=== PATIENT | male | born 1950 | race Caucasian/White ===

== ENCOUNTER 2016-06-22 11:20 | Inpatient (IN) | payer BC ==
[2016-06-22] MEDS ORDERED: ONDANSETRON 4 MG/2 ML VIAL IVP STA (11:57)
[2016-06-22] MEDS ORDERED: SODIUM CHLORIDE 0.9% 1,000 ML IV STA (11:57)
[2016-06-22] MEDS ORDERED: ASPIRIN 81 MG CHEW PO STA (11:57)
[2016-06-22] MEDS ORDERED: NITROGLYCERIN OINT 1 INCH/GM PACKET TOPICAL STA (11:57)
[2016-06-22] MEDS ORDERED: MORPHINE SULFATE 4 MG/ML SYRINGE IV STA (11:57)
--- NOTE | 2016-06-22 12:04 | ED ---
Chest Pain HPI - General Chief Complaint: Chest Pain Stated Complaint: abnormal ekg Time Seen by Provider: 06/22/16 11:36 Source: patient Mode of arrival: ambulatory Limitations: no limitations - History of Present Illness Initial Comments: A chest pain yesterday, it was 07/06, he went to see his family doctor, did the EKG yesterday and some blood work and they then did call them today he was at work and they told him to come to ER. He denies any chest pain today mild pressure he says this 1 over No nausea no vomiting no cold sweats he fell bit weak, he does have a multiple risk factors he has smoked greater than 35 years and he saying deep breaths makes the pain worse. He denies any diabetes any hypertension or any coronary artery disease at this point. No headaches no migraines no abdominal pain no frequency urgency dysuria no weakness of upper or lower extremities now further detailed discussion patient reveals that he is chest pain started about 2 weeks ago when he thinks he had his heart attack about 2 weeks ago and now his chest pain is all resolved - Related Data Home Medications Medication Instructions Recorded Confirmed Aspirin 325 mg PO ONCE 06/22/16 06/22/16 Cholecalciferol [Vitamin D3] 1,000 unit PO DAILY 06/22/16 06/22/16 Flaxseed Oil [[place]-3 Flaxseed Oil] 1,000 mg PO DAILY 06/22/16 06/22/16 Multivitamins, Thera [Multivitamin] 1 tab PO DAILY 06/22/16 06/22/16 Vitamin B Complex 1 cap PO DAILY 06/22/16 06/22/16 Allergies Allergy/AdvReac Type Severity Reaction Status Date / Time No Known Allergies Allergy Verified 06/22/16 12:42 Review of Systems ROS Statement: Those systems with pertinent positive or pertinent negative responses have been documented in the HPI. ROS Other: All systems not noted in ROS Statement are negative. EKG Findings - EKG Comments: EKG Findings:: G is normal sinus rhythm is 83 bpm AL interval is 160 QRS duration is 98 QT/QTc is 372/4 and 37, noticed a T-wave inversion in aVL, there is a hint of ST elevation in lead V2 and V3 by do have an old EKG which was done yesterday at family doctor's office prior to that I do not have any any EKGs were no other EKG changes noticed in this EKG Past Medical History Past Medical History: No Reported History History of Any Multi-Drug Resistant Organisms: None Reported Past Surgical History: No Surgical Hx Reported Past Psychological History: No Psychological Hx Reported Smoking Status: Current every day smoker Past Alcohol Use History: None Reported Past Drug Use History: None Reported General Exam - General Exam Comments Initial Comments: General: The patient is awake and alert, in no distress, and does not appear acutely ill. Skin: Skin is warm and dry and no rashes or lesions are noted. Eye: Pupils are equal, round and reactive to light, extra-ocular movements are intact; there is normal conjunctiva bilaterally. Ears, nose, mouth and throat: There are moist mucous membranes and no oral lesions. Neck: The neck is supple, there is no tenderness or JVD. Cardiovascular: There is a regular rate and rhythm. No murmur, rub or gallop is appreciated. Respiratory: To auscultation bilateral, good air exchange, exam is consistent with the moderate COPD Gastrointestinal: Soft, non-distended, non-tender abdomen without masses or organomegaly noted. There is no rebound or guarding present. Bowel sounds are unremarkable. Back: There is no tenderness to palpation in the midline. There is no obvious deformity. Musculoskeletal: Normal ROM, no tenderness, There is no pedal edema. There is no calf tenderness or swelling. No cords were appreciated. Neurological: CN II-XII intact, Cranial nerves III through XII are intact. There are no obvious motor or sensory deficits. Coordination appears grossly intact. Speech is normal. Psychiatric: Cooperative, appropriate mood & affect, normal judgment. Limitations: no limitations Course Vital Signs 06/22/16 06/22/16 06/22/16 11:26 11:35 11:48 Temperature 97.2 F L Pulse Rate 92 82 Pulse Rate [ 85 Bilateral Radial] Respiratory 20 15 Rate Blood Pressure 170/105 133/85 O2 Sat by Pulse 95 94 L Oximetry 06/22/16 06/22/16 12:30 13:15 Temperature Pulse Rate 68 60 Pulse Rate [ Bilateral Radial] Respiratory 18 14 Rate Blood Pressure 130/85 126/76 O2 Sat by Pulse 96 95 Oximetry Critical Care Time Total Critical Care Time: 45 Critical Care Time: Patient's troponin is elevated he had a chest pain off and on for 2 weeks discussed with the Dr. Carbajal noticed some mild ST elevation on and lead to V2 and lead V3, symptoms started 2 weeks ago chest pain is now resolved he had no chest pain when he was reassessed in the ER and there was even prior to giving him any medications discussed that with the Dr. Carbajal he will be heparinized and now be admitted under Dr. Rojas's group and Dr. lee on B consulted I did discuss with him myself, along with heparinization and now he be on nitro and morphine and statins. Disposition Clinical Impression: Myocardial infarction Disposition: ADMITTED IP TO THIS HOSP Condition: Good
[2016-06-22 12:17] LABS: Basophils # (A) 0.1 k/uL (0-0.2); Basophils % (A) 2 %; CH 33.9; CHCM 34.2; Eosinophils # (A) 0.1 k/uL (0-0.7); Eosinophils % (A) 2 %; HCT 46.5 % (39.0-53.0); HDW 2.34; HGB 15.6 gm/dL (13.0-17.5); Luc # (Auto) 0.22; Luc % (Auto) 4; Lymphocytes # (A) 1.6 k/uL (1.0-4.8); Lymphocytes % (A) 25 %; MCH 33.5 pg (25.0-35.0); MCHC 33.6 g/dL (31.0-37.0); MCV 99.6 fL (80.0-100.0); Mean Platelet Volume 7.6; Monocytes # (A) 0.5 k/uL (0-1.0); Monocytes % (A) 8 %; Neutrophils # (A) 3.7 k/uL (1.3-7.7); Neutrophils % (A) 60 %; RBC 4.67 m/uL (4.30-5.90); RDW 13.5 % (11.5-15.5); WBC 6.2 k/uL (3.8-10.6); WBC (Perox) 5.96
[2016-06-22 12:23] LABS: ALT 21 U/L (21-72); AST 27 U/L (17-59); Alkaline Phosphatase 52 U/L (38-126); Anion Gap 12 mmol/L; Blood Urea Nitrogen 10 mg/dL (9-20); Calcium 9.7 mg/dL (8.4-10.2); Carbon Dioxide 26 mmol/L (22-30); Chloride 104 mmol/L (98-107); Glucose 114 mg/dL (74-99); Non-African American GFR(MDRD) >60 (>60 ml/min/1.73 sqM); Potassium 4.2 mmol/L (3.5-5.1); Sodium 142 mmol/L (137-145); Total Bilirubin 0.6 mg/dL (0.2-1.3); Total Protein 7.8 g/dL (6.3-8.2)
[2016-06-22 12:30] LABS: Prothrombin Time 10.2 sec (9.0-12.0)
[2016-06-22 12:31] LABS: Partial Thromboplastin Time 25.4 sec (22.0-30.0)
--- NOTE | 2016-06-22 12:40 | XR ---
EXAMINATION TYPE: XR chest 2V DATE OF EXAM: 06/22/2016 12:37 PM COMPARISON: NONE HISTORY: Shortness of breath TECHNIQUE: Frontal and lateral views of the chest are obtained. FINDINGS: Scattered senescent parenchymal changes noted. Hyperinflation compatible with COPD. No evidence for infiltrate. No evidence for atelectasis. Heart size is stable. Mediastinal structures are stable and grossly unremarkable. No evidence for hilar prominence. Degenerative changes dorsal spine. IMPRESSION: 1. No evidence for acute pulmonary disease.
[2016-06-22 12:48] LABS: Creatine Kinase MB 1.9 ng/mL (0.0-2.4)
[2016-06-22 13:05] LABS: Troponin I 0.09 ng/mL (0.000-0.034)
[2016-06-22] MEDS ORDERED: NITROGLYCERIN SL TABS 0.4 MG TAB SUBLINGUAL PRN ×2 (13:31→14:51)
[2016-06-22] MEDS ORDERED: MORPHINE SULFATE 4 MG/ML SYRINGE IV PRN (13:31)
[2016-06-22] MEDS ORDERED: HEPARIN SODIUM,PORCINE 5,000 UNIT/ML 1 ML VIAL IV ONE (13:31)
[2016-06-22] MEDS ORDERED: HEPARIN SODIUM,PORCINE/D5W PMX 25,000 UNIT in DEXTROSE/WATER 1 500ML.BAG IV SCH (13:45)
[2016-06-22] MEDS ORDERED: SODIUM CHLORIDE 0.9% 1,000 ML in EMPTY BAG 1 BAG IV ONE (14:51)
[2016-06-22] MEDS ORDERED: ALPRAZolam 0.25 MG TAB PO PRN (14:51)
[2016-06-22] MEDS ORDERED: ASPIRIN 325 MG TAB PO STA (14:51)
[2016-06-22] MEDS ORDERED: ATORVASTATIN 80 MG TAB PO STA (14:51)
[2016-06-22] MEDS ORDERED: LIDOCAINE 2% INJ 20 MG/ML (20 ML MDV) ONE (15:04)
[2016-06-22] MEDS ORDERED: SODIUM CHLORIDE 0.9% (PF) 10 ML VIAL ONE (15:04)
[2016-06-22] MEDS ORDERED: VERAPAMIL 2.5 MG/ML 2 ML AMP ONE (15:04)
--- NOTE | 2016-06-22 15:43 | P.PN ---
Progress Note - Text This is an addendum to the dictated cardiology consultation. The patient has no prior history of ischemic heart disease but for the last 2 weeks his be complaining of chest discomfort across the chest sometimes radiating to the left arm associated with dyspnea. It can occur with mental and physical stress. He denies any dizziness or palpitations. He was seen by his PCP yesterday and had a normal EKG and was called today to come into the emergency room and subsequently admitted. His last episode of pain was yesterday. His EKG today shows sinus mechanism with mild ST segment elevation anteriorly and his EKG yesterday showed T-wave inversion in the anterior leads. His course factors are positive for a family history of premature CAD and chronic tobacco use, he is nondiabetic and his lipid profile is not available. His physical examination shows clear lungs, he has no peripheral edema and he is in sinus mechanism. Impression: Acute coronary syndrome with evidence of myocardial infarction. Chronic tobacco use. Plan: I have recommended to proceed with coronary angiography to assess his status and guide his treatment ,the rationale behind the procedure and the risk and the complications were discussed with the patient who is in full agreement to proceed. Thank you for this consult we will follow with you.
[2016-06-22] MEDS ORDERED: IV FLUID CONTINUATION 875 ML IV ONE (15:50)
--- NOTE | 2016-06-22 15:51 | P.CRDCN ---
History of Present Illness Consult date: 06/22/16 Reason for Consult (text): Non-STEMI Chief complaint: Chest tightness History of present illness: This is a pleasant 65-year-old gentleman who has no significant past medical history, no hypertension, no diabetes, and no hyperlipidemia. Presented to the emergency department after being called by his primary care physician's instructions for him to do so. Patient has been having complaints of chest tightness that radiates down his back and down bilateral arms this is been occurring on and off for the last 2-3 weeks. The first occurrence was while the patient was getting ready for bed and subsequent episodes have been while he was at work and was physically active. He does have a history of smoking approximately 1-1/2 packs a day for 35 years, recently cut back to approximately 10 cigarettes per day. There is a family history of coronary artery disease patient's brother has had multiple MIs in the past. Upon presentation chest x-ray showed no evidence for acute pulmonary disease. EKG done yesterday at his physician's office showed sinus rhythm with elevation of ST segment in V2 and V3 and T-wave inversion in aVL and V3 through V6; EKG done in the ER showed similar findings with T-wave inversions only in aVL. Laboratory values showed a normal BUN/creatinine and a troponin level of 0.090. Upon arrival to the selective care unit, patient is currently pain-free. Says his last episode of chest discomfort occurred yesterday while he was at work. He denies any complaints of shortness of breath, palpitations, diaphoresis, dizziness/lightheadedness or nausea/vomiting. Past Medical History Past Medical History: No Reported History Additional Past Medical History / Comment(s): Occasional lower back pain. History of Any Multi-Drug Resistant Organisms: None Reported Past Surgical History: Appendectomy Additional Past Surgical History / Comment(s): 2011 colonoscopy with polypectomy -benign Past Anesthesia/Blood Transfusion Reactions: No Reported Reaction Past Psychological History: Anxiety, Depression Additional Psychological History / Comment(s): Pt states he gets "alittle depressed and anxious at times but no big deal." Pt lives alone. He uses no assistive device. He drives. Smoking Status: Current every day smoker Past Alcohol Use History: Daily Additional Past Alcohol Use History / Comment(s): Pt states he started smoking in 1971 and is now alittle less than a ppd smoker. He drinks 2-3 rum and cokes a day. Past Drug Use History: None Reported - Past Family History Mother Family Medical History: No Reported History Additional Family Medical History / Comment(s): Mother lived to be 88yrs old. Father History Unknown: Yes Family Medical History: Cancer Additional Family Medical History / Comment(s): Father had sarcoma and at the age of 65yrs. Medications and Allergies Home Medications Medication Instructions Recorded Confirmed Type Aspirin 325 mg PO ONCE 06/22/16 06/22/16 History Cholecalciferol [Vitamin D3] 1,000 unit PO DAILY 06/22/16 06/22/16 History Flaxseed Oil [[place]-3 Flaxseed Oil] 1,000 mg PO DAILY 06/22/16 06/22/16 History Multivitamins, Thera [Multivitamin] 1 tab PO DAILY 06/22/16 06/22/16 History Vitamin B Complex 1 cap PO DAILY 06/22/16 06/22/16 History Allergies Allergy/AdvReac Type Severity Reaction Status Date / Time No Known Allergies Allergy Verified 06/22/16 12:42 Physical Exam Vitals: Vital Signs Temp Pulse Resp BP Pulse Ox 06/22/16 13:55 97.9 F 75 18 128/82 96 PHYSICAL EXAMINATION: HEENT: Head is atraumatic, normocephalic. Pupils equal, round. Neck is supple. There is no elevated jugular venous pressure. HEART EXAMINATION: Heart sounds regular, S1 and S2 normal. No murmur or gallop heard. CHEST EXAMINATION: Lungs are clear to auscultation and precussion. No chest wall tenderness is noted on palpation or with deep breathing. ABDOMEN: Soft, nontender. Bowel sounds are heard. No organomegaly noted. EXTREMITIES: 2+ peripheral pulses with no evidence of peripheral edema and no calf tenderness noted. NEUROLOGIC patient is awake, alert and oriented x3. . Results 06/22/16 11:46 06/22/16 11:46 Current Medications Generic Name Dose Route Start Last Admin Trade Name Freq PRN Reason Stop Dose Admin Alprazolam 0.25 mg 06/22/16 14:51 Xanax PO Q6HR PRN Mild Anxiety Alprazolam 0.5 mg 06/22/16 14:51 Xanax PO Q6HR PRN Moderate Anxiety Aspirin 325 mg 06/23/16 09:00 Aspirin PO DAILY RACHEL Atorvastatin Calcium 40 mg 06/22/16 21:00 Lipitor PO HS RACHEL Sodium Chloride 1,000 mls @ 100 mls/hr 06/22/16 11:57 06/22/16 12:25 Saline 0.9% IV 06/22/16 21:56 100 mls/hr .Q10H STA Administration Heparin Sodium/Dextrose 25,000 500 mls @ 19.05 mls/hr 06/22/16 13:45 14:03 unit/ IV Solution IV 12 units/kg/hr .Q24H RACHEL 19.05 mls/hr Protocol Administration 12 UNITS/KG/HR Morphine Sulfate 4 mg 06/22/16 13:31 Morphine Sulfate (Inj) IV Q5M PRN Chest Pain Nitroglycerin 0.4 mg 06/22/16 13:31 Nitrostat SUBLINGUAL Q5M PRN Chest Pain Assessment and Plan Plan: Assessment and plan #1 non-ST elevated myocardial infarction #2 nicotine dependence #3 family history of coronary artery disease We will keep the patient nothing by mouth and discontinue IV heparin. We'll plan for cardiac catheterization this afternoon with Dr. Carbajal. Further recommendations to follow. PATTERN TECHNICIAN note has been reviewed, I agree with a documented findings and plan of care. Patient was seen and examined.
[2016-06-22] MEDS ORDERED: diphenhydrAMINE 50 MG/ML 1 ML VIAL ONE (15:52)
[2016-06-22] MEDS ORDERED: fentaNYL (PF) 50 MCG/ML 2 ML AMP ONE (15:52)
[2016-06-22] MEDS ORDERED: fentaNYL (PF) 50 MCG/ML 2 ML AMP IV ONE (16:04)
[2016-06-22] MEDS ORDERED: diphenhydrAMINE 50 MG/ML 1 ML VIAL IVP ONE (16:04)
[2016-06-22] MEDS ORDERED: LIDOCAINE 2% INJ 20 MG/ML SQ ONE (16:09)
[2016-06-22] MEDS ORDERED: VERAPAMIL SYRINGE (5 MG/10 ML) INTRAARTER ONE (16:10)
[2016-06-22] MEDS ORDERED: HEPARIN SODIUM 1,000 UNIT/ML VIAL ONE (16:27)
[2016-06-22] MEDS ORDERED: HEPARIN SODIUM 1,000 UNIT/ML VIAL IV ONE (16:27)
[2016-06-22] MEDS ORDERED: IOHEXOL 350 MG/ML 100 ML BOTTLE INJ ONE (16:29)
[2016-06-22] MEDS ORDERED: RX INFO: IV CONTRAST WAS GIVEN 1 EACH MISC MISCELLANE PRN (16:41)
[2016-06-22] MEDS ORDERED: SODIUM CHLORIDE 0.9% 1,000 ML IV SCH (16:45)
[2016-06-22 17:01] LABS: Glucose,Whole Blood 101 mg/dL (75-99)
[2016-06-22] MEDS: SPIRONOLACTONE 25 MG TAB PO SCH (17:27)
[2016-06-22 17:34] LABS: Basophils # (A) 0.1 k/uL (0-0.2); Basophils % (A) 1 %; CH 33.6; CHCM 33.3; Eosinophils # (A) 0.1 k/uL (0-0.7); Eosinophils % (A) 1 %; HCT 47.5 % (39.0-53.0); HGB 15.5 gm/dL (13.0-17.5); Luc # (Auto) 0.22; Luc % (Auto) 3; Lymphocytes # (A) 1.6 k/uL (1.0-4.8); Lymphocytes % (A) 24 %; MCH 33.1 pg (25.0-35.0); MCHC 32.6 g/dL (31.0-37.0); MCV 101.5 fL (80.0-100.0); Macrocytosis Slight; Mean Platelet Volume 7.5; Monocytes # (A) 0.6 k/uL (0-1.0); Monocytes % (A) 10 %; Neutrophils # (A) 4.1 k/uL (1.3-7.7); Neutrophils % (A) 61 %; RBC 4.67 m/uL (4.30-5.90); RDW 13.5 % (11.5-15.5); WBC 6.7 k/uL (3.8-10.6)
[2016-06-22 17:43] LABS: INR 1.1 (<1.1); Partial Thromboplastin Time 56.1 sec (22.0-30.0); Prothrombin Time 10.7 sec (9.0-12.0)
[2016-06-22 18:17] LABS: Creatine Kinase MB 1.7 ng/mL (0.0-2.4)
[2016-06-22 18:31] LABS: Troponin I 0.131 ng/mL (0.000-0.034)
--- NOTE | 2016-06-22 18:58 | CC ---
DATE OF SERVICE: Mr. Mccormack is a 65-year-old male with history of chronic tobacco use, and a family history of coronary artery disease, who for the last 2 weeks he has been having episode of chest discomfort on and off radiating to the arm. Yesterday he saw his primary care physician and had an EKG that was done that was abnormal. He was called back today to come into the hospital. At the time of presentation to the emergency room, patient was pain-free. Because of his symptoms and risk factors and the EKG recommendations made regarding cardiac catheterization. The procedure as well as risks and complications were discussed with the patient who is in full understanding and agreement. PROCEDURE: Patient was brought to the cath in the past state after receiving fentanyl and Benadryl. He was draped and prepped in conventional fashion. Using Xylocaine anesthesia and Seldinger technique, a 6 Tajik sheath was introduced in the right radial artery. Selective right and left coronary angiography was performed using 5 Tajik 3-1/2 Bend, right and left Elsa catheters. Multiple super including hemiaxial views were obtained. Following that, a 5 [place] tight pigtail catheter was introduced into the left ventricle and 30 degrees RODAS view of the left ventricle was obtained. Following that, the catheter and sheath were removed. Hemostasis was obtained with deployment of TR band. There were no immediate complications. Patient is returned to his room in stable condition. FINDINGS: LEFT MAIN: This is a short-sized vessel, large in caliber bifurcating into the left circumflex, left anterior descending coronary artery, left main coronary artery is without any significant obstructive coronary artery disease. LEFT ANTERIOR DESCENDING ARTERY: This is a large-size vessel, giving rise to a large diagonal branch, in the mid segment after the diagonal branch takeoff, there is a 99% stenosis with slow flow distally with what appears to be intracoronary thrombus. The distal vessel appears to have no evidence of high-grade stenosis. LEFT CIRCUMFLEX: This is a nondominant vessel, large in caliber, giving rise to 2 obtuse marginal branches. The second one is large in caliber. After the take off of the first obtuse marginal branch, the left circumflex has a 99% stenosis and there is another long plaque in the mid in the obtuse marginal branch. Beyond that, there is no evidence of high-grade stenosis. RIGHT CORONARY ARTERY: This is a large dominant vessel bifurcating into PDA and posterolateral segment and branches. The vessel is tortuous in the proximal and mid segment, has diffuse intimal disease in the mid segment with area of stenosis up to 60 to 70%, distally prior to the bifurcation has an eccentric 80% stenosis. The PDA and PLV have no evidence of high-grade stenosis. LEFT VENTRICULOGRAM: Left ventriculogram was performed in 30 degrees RODAS view and revealed anteroapical severe hypokinesis. Ejection fraction is 35%. There was no significant mitral regurgitation. HEMODYNAMICS: There was no gradient across the aortic valve. The left ventricular end-diastolic pressure was 16 mmHg. CONCLUSION: 1. Severe triple vessel coronary artery disease with subtotally occluded mid left anterior descending coronary artery. 2. Severely impaired left ventricular systolic function. RECOMMENDATIONS: In view of the fact that the patient has no chest pain at this time and the appearance of his anatomy, I recommend proceeding with coronary artery bypass grafting. The rationale behind the procedure as well as risks and complications were discussed with the patient who is in full understanding and agreement.
--- NOTE | 2016-06-22 19:00 | LTR ---
June 22, 2016 RE: Gregor Mccormack Dear Dr. Mauro: I had the pleasure of performing cardiac catheterization on Mr. Mccormack at [facility] on the 22 of June and a full copy of procedure note will be forwarded to you. In brief, he was found to have severe triple vessel coronary artery disease and a severely impaired left ventricular systolic function. Based on those findings, I have recommended proceeding with coronary artery bypass grafting. I will keep you updated on his progress. Thank you again for allowing me to participate in his care. Please feel free to call for any questions. Sincerely, LEÓN GORDON MD
[2016-06-22] MEDS: HEPARIN SODIUM,PORCINE/D5W PMX 25,000 UNIT in DEXTROSE/WATER 1 500ML.BAG IV SCH (19:12)
[2016-06-22] MEDS: ALPRAZolam 0.5 MG TAB PO PRN (19:16)
[2016-06-22] MEDS: METOPROLOL TARTRATE 25 MG TAB PO SCH (20:06)
[2016-06-22] MEDS: LISINOPRIL 5 MG TAB PO SCH (20:06)
[2016-06-22] MEDS ORDERED: ATORVASTATIN 40 MG TAB PO SCH (21:00)
[2016-06-22] MEDS ORDERED: LORazepam 2 MG/ML SYRINGE IV PRN ×3 (21:31)
[2016-06-22] MEDS ORDERED: THIAMINE 100 MG/ML 2 ML VIAL IM STA (21:31)
[2016-06-22 23:31] LABS: Creatine Kinase MB 1.4 ng/mL (0.0-2.4)
[2016-06-22] MEDS: HEPARIN SODIUM,PORCINE 5,000 UNIT/ML 1 ML VIAL IV PRN (23:42)
[2016-06-22 23:43] LABS: Troponin I 0.155 ng/mL (0.000-0.034)
[2016-06-22] MEDS: NITROGLYCERIN OINT 1 INCH/GM PACKET TOPICAL SCH (23:49)
[2016-06-23 05:44] LABS: Basophils # (A) 0.1 k/uL (0-0.2); Basophils % (A) 1 %; CH 33.6; CHCM 33.9; Eosinophils # (A) 0.1 k/uL (0-0.7); Eosinophils % (A) 2 %; HCT 44.4 % (39.0-53.0); HDW 2.32; HGB 14.9 gm/dL (13.0-17.5); Luc # (Auto) 0.27; Luc % (Auto) 4; Lymphocytes # (A) 1.6 k/uL (1.0-4.8); Lymphocytes % (A) 24 %; MCH 33.4 pg (25.0-35.0); MCHC 33.6 g/dL (31.0-37.0); MCV 99.6 fL (80.0-100.0); Mean Platelet Volume 7.3; Monocytes # (A) 0.6 k/uL (0-1.0); Monocytes % (A) 8 %; Neutrophils # (A) 4.2 k/uL (1.3-7.7); Neutrophils % (A) 61 %; RBC 4.45 m/uL (4.30-5.90); RDW 13.5 % (11.5-15.5); WBC 6.9 k/uL (3.8-10.6)
[2016-06-23 06:31] LABS: Anion Gap 7 mmol/L; Blood Urea Nitrogen 11 mg/dL (9-20); Carbon Dioxide 24 mmol/L (22-30); Chloride 108 mmol/L (98-107); Cholesterol 162 mg/dL (<200); Glucose 108 mg/dL (74-99); HDL Cholesterol 58 mg/dL (40-60); Non-African American GFR(MDRD) >60 (>60 ml/min/1.73 sqM); Potassium 4.2 mmol/L (3.5-5.1); Sodium 139 mmol/L (137-145); Triglycerides 68 mg/dL (<150)
[2016-06-23] MEDS: LISINOPRIL 5 MG TAB PO SCH ×2 (08:41→20:20)
[2016-06-23] MEDS: METOPROLOL TARTRATE 25 MG TAB PO SCH ×2 (08:41→20:20)
[2016-06-23] MEDS: SPIRONOLACTONE 25 MG TAB PO SCH (08:41)
[2016-06-23] MEDS: ATORVASTATIN 80 MG TAB PO SCH (08:41)
[2016-06-23] MEDS: NITROGLYCERIN OINT 1 INCH/GM PACKET TOPICAL SCH ×2 (08:41→16:06)
[2016-06-23] MEDS: NICOTINE 21MG/24HR PATCH TRANSDERM SCH (08:41)
--- NOTE | 2016-06-23 08:51 | PN ---
Mr. Mccormack is a 65-year-old male who presented with evidence of abnormal EKG, has been having chest pain for 2 weeks but did not have any pain on the day of presentation, underwent cardiac catheterization, was found to have severe triple vessel coronary artery disease. He is doing well this morning. He has no chest pain. His breathing has been stable. He denies any dizziness or palpitation. He denies any nausea. He continues to be on aspirin once a day, Lipitor 80 mg daily, IV heparin, lisinopril 5 mg twice a metoprolol titrate 25 mg twice a day, spironolactone 25 mg daily. PHYSICAL EXAMINATION: Blood pressure 128/70 with the heart rate in the 60s. LUNGS: Clear. HEART: Regular rate and rhythm. S1 and S2, no S3, no rub. ABDOMEN: Soft, nontender. EXTREMITIES: No edema. Right radial pulse intact. EKG revealed biphasic T waves in the anterolateral leads with poor R wave progression. Lab data revealed a troponin peak of 0.155. BUN and creatinine 11 and 0.7. Potassium 4.2. Hemoglobin 14.9. Cholesterol 162 with an LDL of 90. IMPRESSION: 1. Severe triple vessel coronary artery disease. 2. Status post recent anterior wall myocardial infarction. 3. Prior history of smoking. RECOMMENDATION: Patient will be evaluated by the cardiovascular surgical team for coronary artery bypass grafting. In view of his anatomy and his presentation, I believe that coronary artery bypass grafting will be the best option. Will continue present therapy. An echocardiogram with Doppler will be obtained. I will obtain a consultation from Dr. Martinez regarding his lung status preoperatively. In the meantime he will continue on IV heparin.
[2016-06-23] MEDS: ASPIRIN 325 MG TAB PO SCH (09:44)
--- NOTE | 2016-06-23 11:19 | US ---
EXAMINATION TYPE: US carotid duplex BILAT DATE OF EXAM: 06/23/2016 11:01 AM COMPARISON: No previous CLINICAL HISTORY: 65-year-old male status post CABG. Myocardial infarction, exam done portable in ICU . TECHNIQUE: Duplex carotid ultrasound. Indirect Doppler criteria utilized. FINDINGS: There is mild atherosclerotic change at both bifurcations. EXAM MEASUREMENTS: RIGHT: Peak Systolic Velocity (PSV) cm/sec ----- Right CCA: 76.5 ----- Right ICA: 59.2 ----- Right ECA: 94.2 ICA/CCA ratio: 0.8 RIGHT: End Diastole cm/sec ----- Right CCA: 20.4 ----- Right ICA: 15.3 ----- Right ECA: 13.7 LEFT: Peak Systolic Velocity (PSV) cm/sec ----- Left CCA: 82.9 ----- Left ICA: 70.5 ----- Left ECA: 62.1 ICA/CCA ratio: 0.8 LEFT: End Diastole cm/sec ----- Left CCA: 18.7 ----- Left ICA: 17.8 ----- Left ECA: 9.5 VERTEBRALS (direction of flow): Right Vertebral: Antegrade Left Vertebral: Antegrade IMPRESSION: No hemodynamically significant stenosis appreciated in either internal carotid artery. Criteria for Assigning % of Stenosis / Diameter reduction (Estimation based on the indirect measurements of the internal carotid artery velocities (ICA PSV). 1. Normal (no stenosis)=ICA PSV < 125 cm/s: ratio < 2.0: ICA EDV<40 cm/s. 2. Less than 50% stenosis=ICA PSV < 125 cm/s: ratio < 2.0: ICA EDV<40 cm/s. 3. 50 to 69% stenosis=ICA PSV of 125 to 230 cm/s: ration 2.0 ? 4.0: ICA EDV 40-100 cm/s. 4. Greater than 70% stenosis to near occlusion= ICA PSV > 230 cm/s: ratio > 4.0: ICA EDV > 100 cm/s. 5. Near occlusion= ICA PSV velocities may be low or undetectable: variable ratio and ICA EDV. 6. Total occlusion=unable to detect flow.
[2016-06-23] MEDS: THIAMINE 100 MG TAB PO SCH ×2 (11:44→17:51)
[2016-06-23] MEDS: methylPREDNISolone SOD SUCCI 40 MG/ML 1 ML VIAL IV SCH ×2 (11:44→17:51)
[2016-06-23] MEDS: IPRATROPIUM-ALBUTEROL 3 ML NEB INHALATION SCH ×3 (12:07→19:36)
--- NOTE | 2016-06-23 13:14 | CONS ---
DATE OF CONSULTATION: 06/23/2016 HISTORY OF PRESENT ILLNESS/CHIEF COMPLAINT: The patient is a pleasant 65-year-old male with no major past medical history who was admitted with a 3-week history of chest discomfort and tightness. Patient had abnormal EKG upon visiting his primary care doctor, was sent to the emergency room. Based on symptoms, patient was taken to the label remover and underwent a cardiac catheterization which revealed critical 3-vessel coronary arterial disease. Troponins were very, very mildly positive. Ejection fraction was only mildly depressed. Cardiac surgery consultation is obtained for evaluation for a coronary bypass surgery. PAST MEDICAL HISTORY: No major noted. PAST SURGICAL HISTORY: Appendectomy. Family history is negative. Medications include aspirin as well as numerous [id number] vitamins. ALLERGIES: No known drug allergies. REVIEW OF SYSTEMS: A 13-system review of systems was performed and was negative with the exception of those listed in the history of present illness. PHYSICAL EXAM: Pupils equal, round, reactive to light and accommodation. Extraocular muscles intact. NECK: Soft, supple. Trachea midline. No JVD. LUNGS: Clear bilaterally. Heart: Regular in rhythm. S1, S2. No murmurs. ABDOMEN: Soft, nontender. Positive bowel sounds. No organomegaly. EXTREMITIES: 2+ peripheral pulses with no edema. NEUROLOGIC: Patient is intact. Cardiac catheterization findings reveal a subtotaled mid left anterior descending artery with ROBERT 2 flow down to the distal via collaterals but a 95% mid circumflex artery stenosis, right coronary artery is 80% stenosis in the mid. Ejection fraction is mildly depressed. IMPRESSION: 1. Non-ST elevation myocardial infarction. 2. Severe 3-vessel coronary arterial disease. PLAN: IV heparin, IV nitroglycerin as well as close observation in the ICU. Patient is currently stable and pain free. We will plan for surgery in the next 2 to 3, days. We will check carotid Dopplers, pulmonary function tests, as well as a 2-D echo. Discussed in detail with the patient including risks, potential complications. He understands and wished to proceed.
[2016-06-23] MEDS: HEPARIN SODIUM,PORCINE/D5W PMX 25,000 UNIT in DEXTROSE/WATER 1 500ML.BAG IV SCH (14:30)
--- NOTE | 2016-06-23 14:40 | ECHOF ---
Referral Reason:PA MEASUREMENTS -------- HEIGHT: 180.3 cm WEIGHT: 81.7 kg BP: 135/81 RVIDd: 2.9 cm (< 3.3) IVSd: 1.3 cm (0.6 - 1.1) LVIDd: 4.7 cm (3.9 - 5.3) LVPWd: 1.2 cm (0.6 - 1.1) IVSs: 1.7 cm LVIDs: 3.3 cm LVPWs: 1.6 cm LA Diam: 3.6 cm (2.7 - 3.8) LAESV Index (A-L): 24.71 ml/m Ao Diam: 3.8 cm (2.0 - 3.7) AV Cusp: 2.4 cm (1.5 - 2.6) MV EXCURSION: 18.221 mm (> 18.000) MV EF SLOPE: 97 mm/s (70 - 150) EPSS: 0.8 cm MV E Bridger: 0.60 m/s MV DecT: 257 ms MV A Bridger: 0.53 m/s MV E/A Ratio: 1.14 RAP: 5.00 mmHg RVSP: 23.88 mmHg FINDINGS -------- Sinus rhythm. This was a technically adequate study. The left ventricular size is normal. There is mild concentric left ventricular hypertrophy. Overall left ventricular systolic function is moderately impaired with, an EF between 35 - 40 %. Mid anterior LV wall motion is hypokinetic. Apical anterior LV wall motion is akinetic. Apical lateral LV wall motion is akinetic. Apical inferior LV wall motion is hypokinetic. Apical septum LV wall motion is akinetic. The right ventricle is normal in size. Normal LA size by volume 22+/-6 ml/m2. The right atrium is normal in size. 1.5mg of Definity was utilized for enhancement of images The aortic valve is trileaflet and appears structurally normal. The mitral valve is normal. Mild mitral regurgitation is present. Mild tricuspid regurgitation present. Right ventricular systolic pressure is normal at < 35 mmHg. The pulmonic valve was not well visualized. There is no pulmonic regurgitation present. The aortic root is dilated measuring 3.8cm. Normal inferior vena cava with normal inspiratory collapse consistent with estimated right atrial pressure of 5 mmHg. There is no pericardial effusion. CONCLUSIONS -------- 1. Sinus rhythm. 2. The right ventricle is normal in size. 3. Normal LA size by volume 22+/-6 ml/m2. 4. The right atrium is normal in size. 5. 1.5mg of Definity was utilized for enhancement of images 6. The aortic valve is trileaflet and appears structurally normal. 7. Mild mitral regurgitation is present. 8. Mild tricuspid regurgitation present. 9. Right ventricular systolic pressure is normal at < 35 mmHg. 10. There is no pulmonic regurgitation present. 11. The aortic root is dilated measuring 3.8cm. 12. This was a technically adequate study. 13. Normal inferior vena cava with normal inspiratory collapse consistent with estimated right atrial pressure of 5 mmHg. 14. There is no pericardial effusion. 15. The left ventricular size is normal. 16. There is mild concentric left ventricular hypertrophy. 17. Overall left ventricular systolic function is moderately impaired with, an EF between 35 - 40 %. 18. Mid anterior LV wall motion is hypokinetic. 19. Apical anterior LV wall motion is akinetic. 20. Apical lateral LV wall motion is akinetic. 21. Apical septum LV wall motion is akinetic. PHLEBOTOMY TECH: Capri Gao RDCS
--- NOTE | 2016-06-23 17:25 | HP ---
DATE OF ADMISSION: 06/22/2016 The patient is a 65-year-old gentleman who came in with complaints of on and off chest pain, ( ) shortness of breath and the patient does have some nonspecific ST-T wave changes, the patient has mildly elevated troponin. The patient has ST segment elevation, which is actually considered depression in V2 V3 and T-wave inversion in aVL and V3 to V6 and the patient has minimally elevated troponin 0.090. Today 0.6 and the patient ( ) including extensive smoking history. Patient underwent cardiac catheterization yesterday and the patient was found to have previous ( ) because of which cardiovascular surgery was consulted and the patient continues to be on heparin. Today morning ( ) because the patient was ( ) lung function, the patient was started on Prednisone, patient has ejection fraction of around 35 to 40%, which is probably acute systolic dysfunction for myocardial infarction. Patient since prednisone and breathing treatments, the patient's pain completely resolved when I evaluated the patient. The patient chest pain free when I evaluated the patient. The patient has a nitro patch in place. REVIEW OF SYSTEMS: CONSTITUTIONAL: No fever, no malaise, no fatigue. HEENT: No recent visual problems or hearing problems. Denied any sore throat. CARDIOVASCULAR: No chest pain, orthopnea, PND, no palpitations, no syncope. PULMONARY: No shortness of breath, no cough, no hemoptysis. GASTROINTESTINAL: No diarrhea, no nausea, no vomiting, no abdominal pain. Normoactive bowel sounds. NEUROLOGICAL: No headaches, no weakness, no numbness. HEMATOLOGICAL: Denies any bleeding or petechiae. GENITOURINARY: Denies any burning micturition, frequency, or urgency. MUSCULOSKELETAL/RHEUMATOLOGICAL: Denies any joint pain, swelling, or any muscle pain. ENDOCRINE: Denies any polyuria or polydipsia. The rest of the 14 point review of systems is negative. PAST MEDICAL HISTORY: Appendectomy. The patient smokes 1 and 1/2 pack per day. Denied any alcohol abuse or any drug history. FAMILY HISTORY: Mother had no reported history, father had sarcoma at age 65. Home medications: 1. Aspirin. 2. Plavix. 3. Multivitamins. 4. Vitamin B complex. ALLERGIES: No known drug allergies. PHYSICAL EXAMINATION: VITAL SIGNS: Temperature 97.1, pulse 75, respiratory rate 18, blood pressure 138/82, saturating at 96% on room. GENERAL: The patient is alert and oriented x3, not in any acute distress. Well developed, well nourished. HEENT: Pupils are round and equally reacting to light. EOMI. No scleral icterus. No conjunctival pallor. Normocephalic, atraumatic. No pharyngeal erythema. No thyromegaly. CARDIOVASCULAR: S1 and S2 present. No murmurs, rubs, or gallops. PULMONARY: Chest is clear to auscultation, no wheezing or crackles. ABDOMEN: Soft, nontender, nondistended, normoactive bowel sounds. No palpable organomegaly. MUSCULOSKELETAL: No joint swelling or deformity. EXTREMITIES: No cyanosis, clubbing, or pedal edema. NEUROLOGICAL: Gross neurological examination did not reveal any focal deficits. SKIN: No rashes. LABORATORY DATA: CBC, CMP, no significant abnormality was appreciated. EKG changes as mentioned earlier. Troponins as mentioned earlier. ASSESSMENT AND PLAN: 1. ( ) Non-ST elevation myocardial infarction, the patient ( ) negative ( ). The patient still awaiting recommendations from cardiothoracic surgery regarding coronary artery bypass grafting. 2. Possibility of chronic obstructive pulmonary disease ( ) minimal exacerbation. The patient was started on systemic steroids and inhalation treatments by pulmonology. 3. Severe coronary artery disease. 4. Acute systolic dysfunction without any acute exacerbation. Patient is on dual antiplatelet therapy, beta linda as well as BROOKLYNN inhibitor and IV heparin at this point of time. Patient is awaiting recommendations from cardiothoracic surgery.
[2016-06-23 17:43] LABS: Glucose,Whole Blood 147 mg/dL (75-99)
--- NOTE | 2016-06-23 18:37 | P.CNPUL ---
History of Present Illness Consult date: 06/23/16 Chief complaint: Coronary artery disease, preoperative evaluation History of present illness: 65-year-old male patient, a chronic smoker with a positive family history of coronary artery disease, presented with episodes of chest pain. Further investigation revealed an abnormal EKG and following that the patient came into the hospital where he had a cardiac catheterization that showed triple-vessel disease with subtotal occluded mid LAD and severely impaired LV function with an ejection fraction of 35%. The patient is being considered for coronary artery bypass surgery. Echocardiogram was also done that showed an ejection fraction of 35-40%. There was evidence of segmental wall motion abnormalities. Aortic root was dilated at 3.8 cm in size. Clinically the patient reports to be in a good state of health. He drinks alcohol every night around few glasses of liquor. No history of any delirium tremens. Denies being an alcoholic. The patient woke cigarettes since clerk rating. He has a chronic congested cough. No silica sputum production. No pleurisy. No hemoptysis. He reports that he was in a good state of health and he was able to walk long distances incline couple of flights of stairs prior to this event without any major difficulties. No history of any DVT or pulmonary embolism. No swelling in lower extremities. Chest x-ray from this admission showed evidence of COPD. A bedside spirometry has not been done yet. No history of any childhood asthma. No hospitalization for any respiratory difficulties. Based on room air pulse ox is ranging between 91-93%. Review of Systems Review of system was done and the positive findings are almost above in history of present illness Past Medical History Past Medical History: No Reported History Additional Past Medical History / Comment(s): Occasional lower back pain. History of Any Multi-Drug Resistant Organisms: None Reported Past Surgical History: Appendectomy Additional Past Surgical History / Comment(s): 2011 colonoscopy with polypectomy -benign Past Anesthesia/Blood Transfusion Reactions: No Reported Reaction Past Psychological History: Anxiety, Depression Additional Psychological History / Comment(s): Pt states he gets "alittle depressed and anxious at times but no big deal." Pt lives alone. He uses no assistive device. He drives. Smoking Status: Current every day smoker Past Alcohol Use History: Daily Additional Past Alcohol Use History / Comment(s): Pt states he started smoking in 1971 and is now alittle less than a ppd smoker. He drinks 2-3 rum and cokes a day. Past Drug Use History: None Reported - Past Family History Mother Family Medical History: No Reported History Additional Family Medical History / Comment(s): Mother lived to be 88yrs old. Father History Unknown: Yes Family Medical History: Cancer Additional Family Medical History / Comment(s): Father had sarcoma and at the age of 65yrs. Medications and Allergies Home Medications Medication Instructions Recorded Confirmed Type Aspirin 325 mg PO ONCE 06/22/16 06/22/16 History Cholecalciferol [Vitamin D3] 1,000 unit PO DAILY 06/22/16 06/22/16 History Flaxseed Oil [[place]-3 Flaxseed Oil] 1,000 mg PO DAILY 06/22/16 06/22/16 History Multivitamins, Thera [Multivitamin] 1 tab PO DAILY 06/22/16 06/22/16 History Vitamin B Complex 1 cap PO DAILY 06/22/16 06/22/16 History Allergies Allergy/AdvReac Type Severity Reaction Status Date / Time No Known Allergies Allergy Verified 06/22/16 12:42 Physical Exam Vitals: Vital Signs Temp Pulse Pulse Resp BP BP Pulse Ox 06/23/16 17:00 74 19 114/61 91 L 06/23/16 16:00 97.9 F 77 21 126/74 93 L 06/23/16 15:55 70 06/23/16 15:44 68 06/23/16 15:00 62 16 113/63 91 L 06/23/16 14:00 76 23 122/63 92 L 06/23/16 13:00 77 18 117/66 92 L 06/23/16 12:24 54 L 06/23/16 12:07 54 L 14 06/23/16 12:00 98 F 60 16 118/67 94 L 06/23/16 11:00 53 L 13 114/72 93 L 06/23/16 10:00 65 13 125/71 95 06/23/16 09:00 77 31 H 135/81 92 L 06/23/16 08:00 97.6 F 70 29 H 128/73 94 L 06/23/16 07:10 61 13 128/73 92 L 06/23/16 07:00 66 16 128/73 92 L 06/23/16 06:50 69 12 119/67 93 L 06/23/16 06:40 70 18 119/67 93 L 06/23/16 06:30 62 16 119/67 92 L 06/23/16 06:20 62 15 119/67 93 L 06/23/16 06:10 55 L 7 L 119/67 95 06/23/16 06:00 54 L 7 L 119/67 93 L 06/23/16 05:50 53 L 9 L 115/66 94 L 06/23/16 05:40 59 L 15 115/66 93 L 06/23/16 05:30 69 15 115/66 93 L 06/23/16 05:20 63 16 115/66 91 L 06/23/16 05:10 62 16 115/66 90 L 06/23/16 05:00 68 11 L 115/66 92 L 06/23/16 04:50 67 22 95/60 92 L 06/23/16 04:40 54 L 7 L 95/60 93 L 06/23/16 04:30 60 15 95/60 93 L 06/23/16 04:20 58 L 8 L 95/60 93 L 06/23/16 04:10 55 L 14 95/60 91 L 06/23/16 04:00 98.3 F 56 L 60 11 L 95/60 94 L 06/23/16 03:50 63 11 L 92/48 92 L 06/23/16 03:40 90 23 92/48 92 L 06/23/16 03:30 71 15 92/48 92 L 06/23/16 03:20 63 15 92/48 91 L 06/23/16 03:10 59 L 13 92/48 93 L 06/23/16 03:00 57 L 16 92/48 91 L 06/23/16 02:50 62 13 91 L 06/23/16 02:40 61 14 91 L 06/23/16 02:30 59 L 7 L 97/56 93 L 06/23/16 02:20 73 31 H 97/56 90 L 06/23/16 02:10 58 L 16 97/56 91 L 06/23/16 02:00 65 15 97/56 91 L 06/23/16 01:50 63 13 97/56 92 L 06/23/16 01:40 65 14 97/56 91 L 06/23/16 01:30 60 13 97/56 91 L 06/23/16 01:20 62 15 97/56 91 L 06/23/16 01:10 62 15 97/56 91 L 06/23/16 01:00 59 L 14 97/56 91 L 06/23/16 00:50 59 L 14 97/56 90 L 06/23/16 00:40 57 L 14 97/56 89 L 06/23/16 00:30 59 L 13 116/72 89 L 06/23/16 00:20 61 17 116/72 90 L 06/23/16 00:10 56 L 11 L 116/72 94 L 06/23/16 00:00 98.1 F 64 60 17 116/72 91 L 06/22/16 23:50 62 16 116/72 90 L 06/22/16 23:40 58 L 16 116/72 06/22/16 23:30 54 L 14 114/69 06/22/16 23:23 58 L 11 L 114/69 06/22/16 23:20 58 L 20 114/69 95 06/22/16 23:10 55 L 13 114/69 06/22/16 23:00 57 L 15 114/69 93 L 06/22/16 22:50 56 L 12 114/69 06/22/16 22:40 56 L 15 114/69 92 L 06/22/16 22:30 54 L 13 114/73 91 L 06/22/16 22:20 53 L 13 114/73 93 L 06/22/16 22:10 56 L 15 114/73 92 L 06/22/16 22:00 57 L 14 114/73 91 L 06/22/16 21:50 65 16 114/73 93 L 06/22/16 21:40 61 15 114/73 93 L 06/22/16 21:30 63 12 111/70 92 L 06/22/16 21:20 65 12 111/70 93 L 06/22/16 21:10 61 14 111/70 92 L 06/22/16 21:00 62 11 L 111/70 92 L 06/22/16 20:50 59 L 15 111/70 91 L 06/22/16 20:40 61 12 111/70 91 L 06/22/16 20:30 59 L 11 L 134/74 93 L 06/22/16 20:26 97.9 F 60 16 111/70 92 L 06/22/16 20:20 60 12 134/74 93 L 06/22/16 20:10 60 15 134/74 90 L 06/22/16 20:00 97.9 F 62 60 15 134/74 91 L 06/22/16 19:50 62 13 134/74 91 L 06/22/16 19:40 63 14 134/74 92 L 06/22/16 19:30 67 18 132/80 94 L 06/22/16 19:26 97.9 F 61 17 134/74 92 L 06/22/16 19:20 67 15 127/81 93 L 06/22/16 19:10 70 13 127/81 93 L 06/22/16 19:00 61 11 L 127/81 93 L 06/22/16 18:50 62 17 126/91 92 L 06/22/16 18:40 69 17 126/91 93 L Intake and Output 06/23/16 06/23/16 06/23/16 06:59 14:59 22:59 Intake Total 684.773 953.579 225 Output Total 450 575 425 Balance 234.773 378.579 -200 Intake: IV 600 600 225 Sodium Chloride 0.9% 1, 600 600 225 000 ml @ 75 mls/hr IV . [id number] RACHEL Rx#:[id number] Intake, IV Titration 84.773 353.579 Amount Heparin Sodium,Porcine/ 84.773 353.579 D5w Pmx 25,000 unit In Dextrose/Water 1 500ml. bag @ 12 UNITS/KG/HR 19. 05 mls/hr IV .Q24H RACHEL Rx #:[id number] Output: Urine 450 575 425 Other: Voiding Method Urinal Urinal # Voids 1 1 Weight 81.7 kg Head exam was generally normal. There was no scleral icterus or corneal arcus. Mucous membranes were moist.Neck was supple and without jugular venous distension, thyromegaly, or carotid bruits. Carotids were easily palpable bilaterally. There was no adenopathy. Lung sounds are diminished bilaterally along with some few scattered expiratory wheezes heard throughout the lung goyal.Cardiac exam revealed the PMI to be normally situated and sized. The rhythm was regular and no extrasystoles were noted during several minutes of auscultation. The first and second heart sounds were normal and physiologic splitting of the second heart sound was noted. There were no murmurs, rubs, clicks, or gallops.Abdominal exam revealed normal bowel sounds. The abdomen was soft, non-tender, and without masses, organomegaly, or appreciable enlargement of the abdominal aorta.Examination of the extremities revealed easily palpable radial, femoral and pedal pulses. There was no cyanosis, clubbing or edema. Results - Laboratory Findings CBC and BMP: 06/23/16 05:31 06/23/16 05:31 PT/INR, D-dimer PT 10.7 sec (9.0-12.0) 06/22/16 17:16 INR 1.1 (<1.1) 06/22/16 17:16 D-Dimer 0.24 mg/L FEU (<0.60) 06/22/16 11:46 Abnormal lab findings: Abnormal Labs 06/22/16 06/22/16 06/22/16 16:59 17:16 17:16 MCV 101.5 H APTT Chloride Glucose POC Glucose (mg/dL) 101 H Troponin I 0.131 H* 06/22/16 06/22/16 06/22/16 17:16 22:37 22:37 MCV APTT 56.1 H 32.1 H Chloride Glucose POC Glucose (mg/dL) Troponin I 0.155 H* 06/23/16 06/23/16 06/23/16 05:31 05:31 17:41 MCV APTT 52.2 H Chloride 108 H Glucose 108 H POC Glucose (mg/dL) 147 H Troponin I - Diagnostic Findings Chest x-ray: image reviewed Assessment and Plan Plan: Assessment 1 triple-vessel disease status post non-ST segment elevation myocardial infarction. The patient is currently being evaluated for cardiac bypass surgery. The patient is currently on IV heparin and nitroglycerin. His remains free of any chest pain. 2 CHF with an ejection fraction of 35% along with segmental wall motion abnormalities 3 COPD 4 nicotine addiction/smoking 5 alcoholism suspected. 6 good performance status Plan We'll put the patient on DuoNeb nebulized treatments around the clock 4 times a day. We will optimize her COPD with accommodation of bronchodilators and will basically this patient with IV Solu-Medrol. We'll obtain a bedside spirometry. He has a room air pulse ox ranging between 91-93% consistent with COPD to notice any pneumonia. His COPD is not in acute exacerbation. Awaiting CT surgery evaluation. The patient would have Dopplers of the carotids. We'll continue to follow and make further recommendations as on his overall progress. For now the patient will be kept in ICU on nitroglycerin IV heparin drip pending further decision on surgery.
[2016-06-24] MEDS: methylPREDNISolone SOD SUCCI 40 MG/ML 1 ML VIAL IV SCH ×3 (00:41→12:30)
[2016-06-24] MEDS: NITROGLYCERIN OINT 1 INCH/GM PACKET TOPICAL SCH ×3 (00:44→16:34)
[2016-06-24 04:33] LABS: Basophils % (A) 0 %; CH 33.8; CHCM 33.6; Eosinophils % (A) 1 %; HDW 2.29; HGB 14.2 gm/dL (13.0-17.5); Luc # (Auto) 0.06; Luc % (Auto) 1; Lymphocytes # (A) 0.7 k/uL (1.0-4.8); Lymphocytes % (A) 9 %; MCH 33.6 pg (25.0-35.0); MCHC 33.1 g/dL (31.0-37.0); MCV 101.4 fL (80.0-100.0); Macrocytosis Slight; Mean Platelet Volume 7.5; Monocytes # (A) 0.3 k/uL (0-1.0); Monocytes % (A) 4 %; Neutrophils # (A) 6.9 k/uL (1.3-7.7); Neutrophils % (A) 86 %; RBC 4.24 m/uL (4.30-5.90); RDW 13.4 % (11.5-15.5); WBC (Perox) 8.04
[2016-06-24 05:00] LABS: Anion Gap 8 mmol/L; Blood Urea Nitrogen 12 mg/dL (9-20); Calcium 8.9 mg/dL (8.4-10.2); Carbon Dioxide 22 mmol/L (22-30); Chloride 109 mmol/L (98-107); Glucose 150 mg/dL (74-99); Non-African American GFR(MDRD) >60 (>60 ml/min/1.73 sqM); Potassium 4.4 mmol/L (3.5-5.1); Sodium 139 mmol/L (137-145)
[2016-06-24] MEDS: ASPIRIN 325 MG TAB PO SCH (06:54)
[2016-06-24] MEDS: HEPARIN SODIUM,PORCINE 5,000 UNIT/ML 1 ML VIAL IV PRN (06:55)
[2016-06-24 07:34] LABS: Glucose,Whole Blood 139 mg/dL (75-99)
[2016-06-24] MEDS: IPRATROPIUM-ALBUTEROL 3 ML NEB INHALATION SCH ×4 (07:39→19:46)
[2016-06-24] MEDS: SPIRONOLACTONE 25 MG TAB PO SCH (08:05)
[2016-06-24] MEDS: ATORVASTATIN 80 MG TAB PO SCH (08:05)
[2016-06-24] MEDS: LISINOPRIL 5 MG TAB PO SCH ×2 (08:05→19:31)
[2016-06-24] MEDS: METOPROLOL TARTRATE 25 MG TAB PO SCH ×2 (08:05→21:02)
[2016-06-24] MEDS: NICOTINE 21MG/24HR PATCH TRANSDERM SCH (08:05)
[2016-06-24] MEDS: HEPARIN SODIUM,PORCINE/D5W PMX 25,000 UNIT in DEXTROSE/WATER 1 500ML.BAG IV SCH (08:41)
[2016-06-24] MEDS: ALPRAZolam 0.5 MG TAB PO PRN ×2 (10:31→19:39)
[2016-06-24] MEDS ORDERED: ZOLPIDEM 5 MG TAB PO PRN (11:05)
[2016-06-24] MEDS ORDERED: MD COMMUNICATION TO PHARMACY 1 EACH MISC PO ONE ×3 (11:05)
[2016-06-24 11:58] LABS: ALT 19 U/L (21-72); AST 23 U/L (17-59); Alkaline Phosphatase 45 U/L (38-126); Total Bilirubin 0.6 mg/dL (0.2-1.3); Total Protein 6.6 g/dL (6.3-8.2)
[2016-06-24 12:16] LABS: Appearance,Urine Clear (Clear); Bilirubin,Urine Negative (Negative); Glucose,Urine (UA) Negative (Negative); Ketones,Urine Negative (Negative); Leukocyte Esterase,Urine Negative (Negative); Nitrite,Urine Negative (Negative); PH, Urine 6.5 (5.0-8.0); Protein,Urine Negative (Negative); Specific Gravity,Urine 1.004 (1.001-1.035); UA Billing (MACRO vs. MICRO) CHEM; Urobilinogen,Urine <2.0 mg/dL (<2.0)
--- NOTE | 2016-06-24 12:17 | PN ---
Mr. Mccormack is a 65-year-old male with no prior documented coronary artery disease, who presented with a myocardial infarction, underwent cardiac catheterization, was found to have severe triple vessel coronary artery disease. He is doing well this morning. He denies any chest pain. His breathing has been stable. He denies any dizziness, palpitation. He denies any nausea. He continues to be on aspirin once a day, Lipitor 80 mg daily, IV heparin, lisinopril 5 mg twice a day, metoprolol tartrate 25 mg twice a day and spironolactone 25 mg daily. He is doing quite well with incentive spirometry. PHYSICAL EXAMINATION: Blood pressure 129/70 with a heart in the 60s. LUNGS: Clear. HEART: Regular rate and rhythm. S1, S2, no S3, no rub. ABDOMEN: Soft, nontender. EXTREMITIES: No edema. Lab data revealed BUN and creatinine 12 and 0.6. Potassium 4.4. His echocardiogram that was performed yesterday has shown an ejection fraction of 35% to 40% with no significant valvular disease. IMPRESSION: 1. Status post myocardial infarction ischemic cardiomyopathy and severe triple vessel coronary disease. 2. Prior history of smoking. RECOMMENDATION: From the cardiac standpoint, will continue present therapy. The patient is scheduled to undergo surgical intervention tomorrow. We will continue on present treatment at this time. Depending on his progress, further recommendation will be made.
[2016-06-24] MEDS: THIAMINE 100 MG TAB PO SCH ×2 (12:30→16:34)
[2016-06-24] MEDS: MUPIROCIN 2% OINT 22 GM TUBE NASAL SCH ×2 (12:30→21:03)
[2016-06-24 13:19] LABS: Basophils # (A) 0.1 k/uL (0-0.2); Basophils % (A) 1 %; CHCM 33.6; Eosinophils # (A) 0.1 k/uL (0-0.7); Eosinophils % (A) 1 %; HCT 46.4 % (39.0-53.0); HDW 2.28; HGB 15.1 gm/dL (13.0-17.5); Luc % (Auto) 1; Lymphocytes # (A) 0.6 k/uL (1.0-4.8); Lymphocytes % (A) 5 %; MCH 33.3 pg (25.0-35.0); MCHC 32.6 g/dL (31.0-37.0); Macrocytosis Slight; Mean Platelet Volume 7.7; Monocytes # (A) 0.5 k/uL (0-1.0); Monocytes % (A) 5 %; Neutrophils # (A) 9.9 k/uL (1.3-7.7); Neutrophils % (A) 88 %; RBC 4.55 m/uL (4.30-5.90); RDW 13.5 % (11.5-15.5); WBC 11.2 k/uL (3.8-10.6)
[2016-06-24 13:29] LABS: INR 1.1 (<1.1); Partial Thromboplastin Time 56.4 sec (22.0-30.0); Prothrombin Time 10.7 sec (9.0-12.0)
[2016-06-24 13:34] LABS: ALT 25 U/L (21-72); AST 17 U/L (17-59); Alkaline Phosphatase 52 U/L (38-126); Anion Gap 10 mmol/L; Blood Urea Nitrogen 13 mg/dL (9-20); Calcium 9.4 mg/dL (8.4-10.2); Carbon Dioxide 24 mmol/L (22-30); Chloride 107 mmol/L (98-107); Glucose 134 mg/dL (74-99); Non-African American GFR(MDRD) >60 (>60 ml/min/1.73 sqM); Potassium 4.1 mmol/L (3.5-5.1); Sodium 141 mmol/L (137-145); Total Bilirubin 0.6 mg/dL (0.2-1.3); Total Protein 7.4 g/dL (6.3-8.2)
--- NOTE | 2016-06-24 14:30 | PN ---
Patient is 65-year-old admitted with ( ) three vessel disease. The patient is going for coronary bypass grafting tomorrow. REVIEW OF SYSTEMS: CARDIOVASCULAR: No chest pain, no orthopnea, no PND, no palpitations. PULMONARY: Denied any shortness of breath. No cough or hemoptysis. GASTROINTESTINAL: No diarrhea, nausea or vomiting. No abdominal pain. Normoactive bowel sounds. NEUROLOGIC: No headaches, no weakness, no numbness. Medications are reviewed. PHYSICAL EXAMINATION: Temperature 97.6, pulse of 82, respiratory rate of 23, blood pressure 129/77, saturating at 94% on room air. GENERAL: The patient is alert and oriented x3, not in any acute distress. Well developed, well nourished. HEENT: Pupils are round and equally reacting to light. EOMI. No scleral icterus. No conjunctival pallor. Normocephalic, atraumatic. No pharyngeal erythema. No thyromegaly. CARDIOVASCULAR: S1 and S2 present. No murmurs, rubs, or gallops. PULMONARY: Minimal expiratory wheezing was appreciated. Fairly good air into bilateral lung goyal. No crackles are appreciated. ABDOMEN: Soft, nontender, nondistended, normoactive bowel sounds. No palpable organomegaly. MUSCULOSKELETAL: No joint swelling or deformity. EXTREMITIES: No cyanosis, clubbing, or pedal edema. NEUROLOGICAL: Gross neurological examination did not reveal any focal deficits. SKIN: No rashes. Laboratory data was reviewed. No significant abnormality was appreciated. ASSESSMENT AND PLAN: 1. Coronary disease. [id number] myocardial infarction with major three-vessel disease and patient is going for coronary artery bypass grafting tomorrow. 2. Chronic obstructive pulmonary disease with minimal exacerbation. The patient on systemic steroids and inhalation treatments. 3. Acute systolic dysfunction, from coronary artery disease. Patient is on BROOKLYNN inhibitor. Patient will does not have any congestive heart failure decompensation at this point of time, not in congestive heart failure exacerbation. Patient will not require Lasix. The patient is on BROOKLYNN inhibitor at this point of time. Patient is going for cardiac catheterization tomorrow and patient is on preoperative antibiotics.
[2016-06-24] MEDS ORDERED: DOCUSATE 100 MG CAP PO PRN (18:04)
--- NOTE | 2016-06-24 18:27 | P.PN ---
Subjective 65-year-old male patient, a chronic smoker with a positive family history of coronary artery disease, presented with episodes of chest pain. Further investigation revealed an abnormal EKG and following that the patient came into the hospital where he had a cardiac catheterization that showed triple-vessel disease with subtotal occluded mid LAD and severely impaired LV function with an ejection fraction of 35%. The patient is being considered for coronary artery bypass surgery. Echocardiogram was also done that showed an ejection fraction of 35-40%. There was evidence of segmental wall motion abnormalities. Aortic root was dilated at 3.8 cm in size. Clinically the patient reports to be in a good state of health. He drinks alcohol every night around few glasses of liquor. No history of any delirium tremens. Denies being an alcoholic. The patient woke cigarettes since early childhood associate. He has a chronic congested cough. No silica sputum production. No pleurisy. No hemoptysis. He reports that he was in a good state of health and he was able to walk long distances incline couple of flights of stairs prior to this event without any major difficulties. No history of any DVT or pulmonary embolism. No swelling in lower extremities. Chest x-ray from this admission showed evidence of COPD. A bedside spirometry has not been done yet. No history of any childhood asthma. No hospitalization for any respiratory difficulties. Based on room air pulse ox is ranging between 91-93%. On 06/24/2016, the patient is stable. No significant chest pain. No shortness of breath. The patient was placed on vocal paralysis systemic steroids. The FEV1 measurement was of a 86% of predicted. The patient is scheduled to undergo his coronary bypass surgery more afternoon. Hemodynamically stable. No other significant events otherwise. Objective - Vital Signs Vital signs: Vital Signs Temp 97.9 F 06/24/16 16:00 Pulse 76 06/24/16 18:00 Resp 18 06/24/16 18:00 BP 119/76 06/24/16 18:00 Pulse Ox 90 L 06/24/16 18:00 Intake & Output 06/23/16 06/24/16 06/24/16 18:59 06:59 18:59 Intake Total 4061.727 2114.088 948.564 Output Total 1000 1250 1325 Balance 328.579 -34.912 -376.436 Weight 85.5 kg 85.5 kg Intake: IV 975 825 900 Sodium Chloride 0.9% 1, 975 825 900 000 ml @ 75 mls/hr IV . [id number] RACHEL Rx#:[id number] Intake, IV Titration 353.579 390.088 48.564 Amount Heparin Sodium,Porcine/ 353.579 390.088 48.564 D5w Pmx 25,000 unit In Dextrose/Water 1 500ml. bag @ 12 UNITS/KG/HR 19. 05 mls/hr IV .Q24H RACHEL Rx #:[id number] Output: Urine 1000 1250 1325 Other: Voiding Method Urinal Urinal Urinal # Voids 1 1 - Exam The patient appeared well nourished and normally developed. Vital signs as documented. Head exam is unremarkable. No scleral icterus or corneal arcus noted. Neck is without jugular venous distension, thyromegaly, or carotid bruits. Carotid upstrokes are brisk bilaterally. Lungs are clear to auscultation and percussion. Cardiac exam reveals the PMI to be normally sized and situated. Rhythm is regular. First and second heart sounds normal. No murmurs, rubs or gallops. Abdominal exam reveals normal bowel sounds, no masses , no organomegaly and no aortic enlargement. Extremities are nonedematous and both femoral and pedal pulses are normal. - Labs CBC & Chem 7: 06/24/16 13:10 06/24/16 13:10 Labs: Abnormal Lab Results - Last 24 Hours (Table) 06/24/16 06/24/16 06/24/16 Range/Units 04:21 04:21 04:21 WBC (3.8-10.6) k/uL RBC 4.24 L (4.30-5.90) m/uL MCV 101.4 H (80.0-100.0) fL Neutrophils # (1.3-7.7) k/uL Lymphocytes # 0.7 L (1.0-4.8) k/uL APTT 42.4 H (22.0-30.0) sec Chloride 109 H (98-107) mmol/L Creatinine 0.60 L (0.66-1.25) mg/dL Glucose 150 H (74-99) mg/dL POC Glucose (mg/dL) (75-99) mg/dL ALT 19 L (21-72) U/L Troponin I (0.000-0.034) ng/mL Crossmatch 06/24/16 06/24/16 06/24/16 Range/Units 07:31 13:10 13:10 WBC 11.2 H (3.8-10.6) k/uL RBC (4.30-5.90) m/uL MCV 102.0 H (80.0-100.0) fL Neutrophils # 9.9 H (1.3-7.7) k/uL Lymphocytes # 0.6 L (1.0-4.8) k/uL APTT 56.4 H (22.0-30.0) sec Chloride (98-107) mmol/L Creatinine (0.66-1.25) mg/dL Glucose (74-99) mg/dL POC Glucose (mg/dL) 139 H (75-99) mg/dL ALT (21-72) U/L Troponin I (0.000-0.034) ng/mL Crossmatch 06/24/16 06/24/16 06/24/16 Range/Units 13:10 13:10 13:10 WBC (3.8-10.6) k/uL RBC (4.30-5.90) m/uL MCV (80.0-100.0) fL Neutrophils # (1.3-7.7) k/uL Lymphocytes # (1.0-4.8) k/uL APTT (22.0-30.0) sec Chloride (98-107) mmol/L Creatinine (0.66-1.25) mg/dL Glucose 134 H (74-99) mg/dL POC Glucose (mg/dL) (75-99) mg/dL ALT (21-72) U/L Troponin I 0.038 H* (0.000-0.034) ng/mL Crossmatch See Detail Microbiology - Last 24 Hours (Table) 06/24/16 11:48 Urine Culture - Preliminary Urine,Voided Assessment and Plan Plan: Assessment 1 triple-vessel disease status post non-ST segment elevation myocardial infarction. The patient is currently being evaluated for cardiac bypass surgery. The patient is currently on IV heparin and nitroglycerin. His remains free of any chest pain. 2 CHF with an ejection fraction of 35% along with segmental wall motion abnormalities 3 COPD 4 nicotine addiction/smoking 5 alcoholism suspected. 6 good performance status Plan Patient has been using incentive spirometer. FEV1 is noted of 86% of predicted. Continue the DuoNeb nebulized treatments. This continued IV Solu- Medrol. Proceed with surgery in a.m.
[2016-06-24] MEDS ORDERED: DEXTROSE 5% IN WATER 1,000 ML with POTASSIUM CHLORIDE 110 MEQ, MAGNESIUM SULFATE 16 MEQ... IV PRN ×5 (21:08)
[2016-06-24 21:10] LABS: Glucose,Whole Blood 111 mg/dL (75-99)
[2016-06-25] MEDS: NITROGLYCERIN OINT 1 INCH/GM PACKET TOPICAL SCH ×3 (04:09→08:13)
[2016-06-25] MEDS: HEPARIN SODIUM,PORCINE/D5W PMX 25,000 UNIT in DEXTROSE/WATER 1 500ML.BAG IV SCH (04:10)
[2016-06-25] MEDS ORDERED: DEXTROSE 5% IN WATER 1,000 ML with POTASSIUM CHLORIDE 25 MEQ, SODIUM CHLORIDE 4MEQ/ML V... IV PRN ×6 (05:00)
[2016-06-25] MEDS ORDERED: AMINOCAPROIC ACID 5,000 MG in DEXTROSE 5% IN WATER 50 ML IV PRN ×4 (05:00)
[2016-06-25] MEDS ORDERED: HEPARIN SODIUM,PORCINE 5,000 UNIT in SODIUM CHLORIDE 0.9% 500 ML IV PRN (05:00)
[2016-06-25] MEDS ORDERED: ATORVASTATIN 10 MG TAB PO ONE (05:00)
[2016-06-25] MEDS ORDERED: CALCIUM CHLORIDE 100 MG/ML 10 ML SYRINGE IVP PRN (05:00)
[2016-06-25] MEDS ORDERED: PROTAMINE SULFATE 10 MG/ML 25 ML VIAL IV PRN (05:00)
[2016-06-25] MEDS ORDERED: NOREPINEPHRINE 4 MG in SODIUM CHLORIDE 0.9% 250 ML IV PRN (05:00)
[2016-06-25] MEDS ORDERED: NITROGLYCERIN-D5W PMX 50 MG in DEXTROSE/WATER 1 250ML.BAG IV PRN (05:00)
[2016-06-25] MEDS ORDERED: AMINOCAPROIC ACID 250 MG/ML 20 ML VIAL IV PRN (05:00)
[2016-06-25] MEDS ORDERED: PAPAVERINE 360 MG in SODIUM CHLORIDE 0.9% 90 ML IV PRN (05:00)
[2016-06-25] MEDS ORDERED: SODIUM BICARB 8.4% 50 ML SYR (1 MEQ/ML) IV PRN (05:00)
[2016-06-25] MEDS ORDERED: PROTAMINE SULFATE 250 MG in EMPTY BAG 1 BAG IV PRN (05:00)
[2016-06-25] MEDS ORDERED: HEPARIN SODIUM 1,000 UNIT/ML VIAL IV PRN (05:00)
[2016-06-25] MEDS ORDERED: ceFAZolin 2 GM in SODIUM CHLORIDE 0.9% 30 ML IVPB PRN (05:00)
[2016-06-25] MEDS ORDERED: ceFAZolin 2,000 MG in SODIUM CHLORIDE 0.9% 30 ML IVPB PRN (05:00)
[2016-06-25] MEDS ORDERED: ALBUMIN HUMAN 25% 50 ML in EMPTY BAG 1 BAG IVPB PRN (05:00)
[2016-06-25] MEDS ORDERED: NITROGLYCERIN-D5W PMX 25 MG/250 ML BTL IV PRN (05:00)
[2016-06-25] MEDS ORDERED: PROPOFOL 500 MG in EMPTY BAG 1 BAG IV PRN (05:00)
[2016-06-25] MEDS ORDERED: CARDIOPLEGIC SOLN (K+ 16 MEQ/L 1,000 ML with SODIUM BICARB (1 MEQ/ML) 20 ML, LIDOCAINE ... PERFUSION NR ×3 (05:00)
[2016-06-25] MEDS ORDERED: ceFAZolin 1,000 MG in SODIUM CHLORIDE 0.9% IRRIGATIO 1,000 ML IRRIGATION PRN (05:00)
[2016-06-25] MEDS ORDERED: ALBUMIN HUMAN 5% 500 ML in EMPTY BAG 1 BAG IVPB PRN ×6 (05:00)
[2016-06-25] MEDS ORDERED: INSULIN REGULAR 100 UNIT in SODIUM CHLORIDE 0.9% 100 ML IV PRN (05:00)
[2016-06-25] MEDS ORDERED: MAGNESIUM SULFATE SYG 4.06 MEQ/ML SYRINGE IV PRN (05:00)
[2016-06-25] MEDS ORDERED: CHLORHEXIDINE GLUCONATE 15 ML CUP MUCOUS MEM PRN (05:00)
[2016-06-25] MEDS ORDERED: CLEVIDIPINE BUTYRATE 25 MG in EMPTY BAG 1 BAG IV PRN (05:00)
[2016-06-25] MEDS ORDERED: PHENYLEPHRINE-0.9% NACL SYG 1 MG/10 ML SYRINGE IV PRN ×4 (05:00)
[2016-06-25 05:14] LABS: Basophils % (A) 0 %; CH 33.9; CHCM 33.5; Eosinophils % (A) 0 %; HCT 41.9 % (39.0-53.0); HDW 2.32; HGB 13.9 gm/dL (13.0-17.5); Luc # (Auto) 0.16; Luc % (Auto) 1; Lymphocytes # (A) 1.9 k/uL (1.0-4.8); Lymphocytes % (A) 15 %; MCH 33.6 pg (25.0-35.0); MCHC 33.1 g/dL (31.0-37.0); MCV 101.6 fL (80.0-100.0); Macrocytosis Slight; Mean Platelet Volume 7.9; Monocytes # (A) 0.8 k/uL (0-1.0); Monocytes % (A) 6 %; Neutrophils # (A) 9.6 k/uL (1.3-7.7); Neutrophils % (A) 77 %; RBC 4.12 m/uL (4.30-5.90); RDW 13.5 % (11.5-15.5); WBC 12.5 k/uL (3.8-10.6); WBC (Perox) 12.54
[2016-06-25 05:16] LABS: Ionized Calcium 5.2 mg/dL (4.5-5.3)
[2016-06-25 05:38] LABS: ALT 27 U/L (21-72); AST 17 U/L (17-59); Alkaline Phosphatase 50 U/L (38-126); Anion Gap 10 mmol/L; Blood Urea Nitrogen 17 mg/dL (9-20); Calcium 8.9 mg/dL (8.4-10.2); Carbon Dioxide 22 mmol/L (22-30); Chloride 108 mmol/L (98-107); Glucose 90 mg/dL (74-99); Magnesium 1.8 mg/dL (1.6-2.3); Non-African American GFR(MDRD) >60 (>60 ml/min/1.73 sqM); Phosphorous 3.8 mg/dL (2.5-4.5); Potassium 3.8 mmol/L (3.5-5.1); Sodium 140 mmol/L (137-145); Total Bilirubin 0.5 mg/dL (0.2-1.3); Total Protein 6.1 g/dL (6.3-8.2)
[2016-06-25] MEDS ORDERED: Potassium Replacement Protocol 1 EACH MISC MISCELLANE PRN ×2 (06:09→17:47)
[2016-06-25] MEDS: HEPARIN SODIUM,PORCINE 5,000 UNIT/ML 1 ML VIAL IV PRN (06:20)
[2016-06-25 07:45] LABS: Hepatitis B Surface Ag Index 0.06
[2016-06-25] MEDS: IPRATROPIUM-ALBUTEROL 3 ML NEB INHALATION SCH ×6 (07:49→23:30)
[2016-06-25 07:50] LABS: Hepatitis B Core IgM Index 0.04
[2016-06-25 08:02] LABS: Hepatitis C Virus IgG Index 0.03
[2016-06-25] MEDS: POTASSIUM CHLORIDE 10 MEQ, LIDOCAINE 2% INJ 10 MG in SODIUM CHLORIDE 0.9% 100 ML IV SCH ×2 (08:02→09:26)
[2016-06-25] MEDS: ASPIRIN 325 MG TAB PO SCH (08:03)
[2016-06-25] MEDS: NICOTINE 21MG/24HR PATCH TRANSDERM SCH (08:03)
[2016-06-25] MEDS: MUPIROCIN 2% OINT 22 GM TUBE NASAL SCH (08:03)
[2016-06-25] MEDS: METOPROLOL TARTRATE 25 MG TAB PO SCH (08:04)
[2016-06-25] MEDS: SPIRONOLACTONE 25 MG TAB PO SCH (08:04)
[2016-06-25 08:11] LABS: Hepatitis C Virus IgG Ab Negative (Negative)
--- NOTE | 2016-06-25 09:49 | P.PN ---
Progress Note - Text Diagnosis: Severe coronary artery disease, plan for CABG 4 today. Subjective: Patient currently sitting up in chair in no apparent distress. States he has no questions about surgery at this time. Objective: Laboratory Results - last 24 hr 06/24/16 06/24/16 06/24/16 04:21 04:21 11:48 WBC RBC Hgb Hct MCV MCH MCHC RDW Plt Count Neutrophils % Lymphocytes % Monocytes % Eosinophils % Basophils % Neutrophils # Lymphocytes # Monocytes # Eosinophils # Basophils # Macrocytosis PT INR APTT Sodium 139 Potassium 4.4 Chloride 109 H Carbon Dioxide 22 Anion Gap 8 BUN 12 Creatinine 0.60 L Est GFR (MDRD) Af Amer >60 Est GFR (MDRD) Non-Af >60 Glucose 150 H POC Glucose (mg/dL) POC Glu Line Person ID Calcium 8.9 Ionized Calcium [place] Phosphorus Magnesium Total Bilirubin 0.6 AST 23 ALT 19 L Alkaline Phosphatase 45 Troponin I NT-Pro-B Natriuret Pep Total Protein 6.6 Albumin 3.5 TSH Urine Color Light Yellow Urine Appearance Clear Urine pH 6.5 Ur Specific [place] 1.004 Urine Protein Negative Urine Glucose (UA) Negative Urine Ketones Negative Urine Blood Negative Urine Nitrate Negative Urine Bilirubin Negative Urine Urobilinogen <2.0 Ur Leukocyte Esterase Negative Hepatitis A IgM Ab Hep Bs Antigen Hep B Core IgM Ab Hep C IgG Ab Blood Type Blood Type Confirm A Positive Blood Type Recheck Antibody Screen Crossmatch Transfuse Platelets Spec Expiration Date 06/24/16 06/24/16 06/24/16 13:10 13:10 13:10 WBC 11.2 H RBC 4.55 Hgb 15.1 Hct 46.4 MCV 102.0 H MCH 33.3 MCHC 32.6 RDW 13.5 Plt Count 223 Neutrophils % 88 Lymphocytes % 5 Monocytes % 5 Eosinophils % 1 Basophils % 1 Neutrophils # 9.9 H Lymphocytes # 0.6 L Monocytes # 0.5 Eosinophils # 0.1 Basophils # 0.1 Macrocytosis Slight PT 10.7 INR 1.1 APTT 56.4 H Sodium Potassium Chloride Carbon Dioxide Anion Gap BUN Creatinine Est GFR (MDRD) Af Amer Est GFR (MDRD) Non-Af Glucose POC Glucose (mg/dL) POC Glu Line Person ID Calcium Ionized Calcium [place] Phosphorus Magnesium Total Bilirubin AST ALT Alkaline Phosphatase Troponin I 0.038 H* NT-Pro-B Natriuret Pep Total Protein Albumin TSH Urine Color Urine Appearance Urine pH Ur Specific [place] Urine Protein Urine Glucose (UA) Urine Ketones Urine Blood Urine Nitrate Urine Bilirubin Urine Urobilinogen Ur Leukocyte Esterase Hepatitis A IgM Ab Hep Bs Antigen Hep B Core IgM Ab Hep C IgG Ab Blood Type Blood Type Confirm Blood Type Recheck Antibody Screen Crossmatch Transfuse Platelets Spec Expiration Date 06/24/16 06/24/16 06/24/16 13:10 13:10 13:10 WBC RBC Hgb Hct MCV MCH MCHC RDW Plt Count Neutrophils % Lymphocytes % Monocytes % Eosinophils % Basophils % Neutrophils # Lymphocytes # Monocytes # Eosinophils # Basophils # Macrocytosis PT INR APTT Sodium 141 Potassium 4.1 Chloride 107 Carbon Dioxide 24 Anion Gap 10 BUN 13 Creatinine 0.67 Est GFR (MDRD) Af Amer >60 Est GFR (MDRD) Non-Af >60 Glucose 134 H POC Glucose (mg/dL) POC Glu Line Person ID Calcium 9.4 Ionized Calcium [place] Phosphorus Magnesium Total Bilirubin 0.6 AST 17 ALT 25 Alkaline Phosphatase 52 Troponin I NT-Pro-B Natriuret Pep 1100 Total Protein 7.4 Albumin 4.1 TSH Urine Color Urine Appearance Urine pH Ur Specific [place] Urine Protein Urine Glucose (UA) Urine Ketones Urine Blood Urine Nitrate Urine Bilirubin Urine Urobilinogen Ur Leukocyte Esterase Hepatitis A IgM Ab Hep Bs Antigen Hep B Core IgM Ab Hep C IgG Ab Blood Type A Positive Blood Type Confirm Blood Type Recheck CABO Indicated Antibody Screen NEGATIVE Crossmatch See Detail Transfuse Platelets 06/25/16 Spec Expiration Date 06/27/2016 - 2310 06/24/16 06/25/16 06/25/16 21:07 04:08 04:08 WBC 12.5 H RBC 4.12 L Hgb 13.9 Hct 41.9 MCV 101.6 H MCH 33.6 MCHC 33.1 RDW 13.5 Plt Count 221 Neutrophils % 77 Lymphocytes % 15 Monocytes % 6 Eosinophils % 0 Basophils % 0 Neutrophils # 9.6 H Lymphocytes # 1.9 Monocytes # 0.8 Eosinophils # 0.0 Basophils # 0.0 Macrocytosis Slight PT INR APTT 44.4 H Sodium Potassium Chloride Carbon Dioxide Anion Gap BUN Creatinine Est GFR (MDRD) Af Amer Est GFR (MDRD) Non-Af Glucose POC Glucose (mg/dL) 111 H POC Glu Line Person ID Junior, Chiquita Calcium Ionized Calcium [place] Phosphorus Magnesium Total Bilirubin AST ALT Alkaline Phosphatase Troponin I NT-Pro-B Natriuret Pep Total Protein Albumin TSH Urine Color Urine Appearance Urine pH Ur Specific [place] Urine Protein Urine Glucose (UA) Urine Ketones Urine Blood Urine Nitrate Urine Bilirubin Urine Urobilinogen Ur Leukocyte Esterase Hepatitis A IgM Ab Hep Bs Antigen Hep B Core IgM Ab Hep C IgG Ab Blood Type Blood Type Confirm Blood Type Recheck Antibody Screen Crossmatch Transfuse Platelets Spec Expiration Date 06/25/16 06/25/16 04:08 04:08 WBC RBC Hgb Hct MCV MCH MCHC RDW Plt Count Neutrophils % Lymphocytes % Monocytes % Eosinophils % Basophils % Neutrophils # Lymphocytes # Monocytes # Eosinophils # Basophils # Macrocytosis PT INR APTT Sodium 140 Potassium 3.8 Chloride 108 H Carbon Dioxide 22 Anion Gap 10 BUN 17 Creatinine 0.70 Est GFR (MDRD) Af Amer >60 Est GFR (MDRD) Non-Af >60 Glucose 90 POC Glucose (mg/dL) POC Glu Line Person ID Calcium 8.9 Ionized Calcium [place] 5.2 Phosphorus 3.8 Magnesium 1.8 Total Bilirubin 0.5 AST 17 ALT 27 Alkaline Phosphatase 50 Troponin I NT-Pro-B Natriuret Pep Total Protein 6.1 L Albumin 3.4 L TSH 3.880 Urine Color Urine Appearance Urine pH Ur Specific [place] Urine Protein Urine Glucose (UA) Urine Ketones Urine Blood Urine Nitrate Urine Bilirubin Urine Urobilinogen Ur Leukocyte Esterase Hepatitis A IgM Ab NEGATIVE Hep Bs Antigen Negative Hep B Core IgM Ab NEGATIVE Hep C IgG Ab Negative Blood Type Blood Type Confirm Blood Type Recheck Antibody Screen Crossmatch Transfuse Platelets Spec Expiration Date Vital Signs - 24 hr 06/24/16 06/24/16 06/24/16 10:00 11:00 11:35 Temperature Pulse Rate 67 77 73 Respiratory 22 8 L Rate Blood Pressure 129/76 133/78 O2 Sat by Pulse 97 94 L Oximetry 06/24/16 06/24/16 06/24/16 11:50 12:00 13:00 Temperature Pulse Rate 74 63 82 Respiratory 18 23 Rate Blood Pressure 133/78 121/70 O2 Sat by Pulse 94 L 94 L Oximetry 06/24/16 06/24/16 06/24/16 14:00 15:00 16:00 Temperature 97.9 F Pulse Rate 74 84 82 Respiratory 21 21 36 H Rate Blood Pressure 113/64 115/71 138/93 O2 Sat by Pulse 94 L 91 L 92 L Oximetry 06/24/16 06/24/16 06/24/16 16:31 16:48 17:00 Temperature Pulse Rate 77 74 80 Respiratory 22 Rate Blood Pressure 138/93 O2 Sat by Pulse 92 L Oximetry 06/24/16 06/24/16 06/24/16 18:00 19:00 19:38 Temperature Pulse Rate 76 70 78 Respiratory 18 14 Rate Blood Pressure 119/76 119/76 O2 Sat by Pulse 90 L 94 L Oximetry 06/24/16 06/24/16 06/24/16 19:49 20:00 20:30 Temperature 97.9 F Pulse Rate 80 78 81 Respiratory 21 22 Rate Blood Pressure 114/64 126/81 O2 Sat by Pulse 94 L 94 L Oximetry 06/24/16 06/24/16 06/24/16 21:00 21:10 22:00 Temperature Pulse Rate 76 86 60 Respiratory 16 14 11 L Rate Blood Pressure 126/81 117/68 117/68 O2 Sat by Pulse 92 L 95 93 L Oximetry 06/24/16 06/25/16 06/25/16 23:26 00:00 01:00 Temperature 97.6 F Pulse Rate 73 59 L 58 L Respiratory 22 19 17 Rate Blood Pressure 110/76 121/80 121/80 O2 Sat by Pulse 95 94 L 94 L Oximetry 06/25/16 06/25/16 06/25/16 02:00 03:00 04:00 Temperature 97.8 F Pulse Rate 57 L 56 L 68 Respiratory 18 17 19 Rate Blood Pressure 123/86 127/76 132/82 O2 Sat by Pulse 94 L 94 L 91 L Oximetry 06/25/16 06/25/16 06/25/16 05:00 06:00 07:00 Temperature Pulse Rate 80 82 64 Respiratory 12 21 18 Rate Blood Pressure 132/82 124/79 141/80 O2 Sat by Pulse 94 L 94 L 93 L Oximetry 06/25/16 06/25/16 06/25/16 07:53 08:00 08:03 Temperature 98.2 F Pulse Rate 77 81 77 Respiratory 33 H Rate Blood Pressure 131/78 O2 Sat by Pulse 96 98 Oximetry 06/25/16 09:00 Temperature Pulse Rate 73 Respiratory 39 H Rate Blood Pressure 120/74 O2 Sat by Pulse 95 Oximetry Assessment/plan: 1. Continue aspirin, beta linda, statin 2. Preoperative testing completed 3. Preoperative teaching started, will continue to reinforce 4. Anticipate CABG 4 this afternoon. 5. More recommendations as patient progresses.
[2016-06-25 10:08] LABS: Hemoglobin A1C 5.5 % (4.2-6.1)
[2016-06-25] MEDS ORDERED: AMINOCAPROIC ACID 5,000 MG in DEXTROSE 5% IN WATER 50 ML IV ONE ×2 (12:52)
[2016-06-25] MEDS ORDERED: MANNITOL 25% 12.5 GM/50 ML VIAL IV ONE (13:00)
--- NOTE | 2016-06-25 13:59 | PN ---
Mr. Mccormack is a 65-year-old male who presented with evidence of myocardial infarction, underwent cardiac catheterization, was found to have severe triple vessel coronary artery disease. He is scheduled to undergo coronary artery bypass grafting today by Dr. Zazueta. He is doing well. He is denying any chest pain. His pain has been stable. He is denying any dizziness. No palpitation. He denies any nausea. Hemodynamically, he is stable. He continues to be at this time on IV heparin that will be stopped prior to surgical intervention. He is on Lipitor 40 mg daily, metoprolol tartrate 25 mg twice a day, Nitro paste 1 inch q.8 hours, spironolactone 25 mg daily, lisinopril. PHYSICAL EXAMINATION: Blood pressure 120/70 with a heart rate in the 70s. LUNGS: Clear. HEART: Regular rate and rhythm, S1, S2, no S3, no rub. ABDOMEN: Soft. EXTREMITIES: No edema. Lab data revealed a hemoglobin of 13.9. BUN and creatinine 17and 0.7. IMPRESSION: 1. Status post myocardial infarction. 2. Ischemic ( ). 3. Triple vessel disease. 4. Prior history of smoking. RECOMMENDATION: Patient will proceed with surgical intervention today and routine postoperative care initiated. I would restart his beta linda and BR[place]NN inhibitor as soon as possible, postoperatively.
--- NOTE | 2016-06-25 14:20 | P.PN ---
Subjective Principal diagnosis: Triple-vessel coronary artery disease and left ventricular dysfunction. 65-year-old male patient, a chronic smoker with a positive family history of coronary artery disease, presented with episodes of chest pain. Further investigation revealed an abnormal EKG and following that the patient came into the hospital where he had a cardiac catheterization that showed triple-vessel disease with subtotal occluded mid LAD and severely impaired LV function with an ejection fraction of 35%. The patient is being considered for coronary artery bypass surgery. Echocardiogram was also done that showed an ejection fraction of 35-40%. There was evidence of segmental wall motion abnormalities. Aortic root was dilated at 3.8 cm in size. Clinically the patient reports to be in a good state of health. He drinks alcohol every night around few glasses of liquor. No history of any delirium tremens. Denies being an alcoholic. 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 He has a chronic congested cough. No silica sputum production. No pleurisy. No hemoptysis. He reports that he was in a good state of health and he was able to walk long distances incline couple of flights of stairs prior to this event without any major difficulties. No history of any DVT or pulmonary embolism. No swelling in lower extremities. Chest x-ray from this admission showed evidence of COPD. A bedside spirometry has not been done yet. No history of any childhood asthma. No hospitalization for any respiratory difficulties. Based on room air pulse ox is ranging between 91-93%. On 06/24/2016, the patient is stable. No significant chest pain. No shortness of breath. The patient was placed on systemic steroids. The FEV1 measurement was of a 86% of predicted. The patient is scheduled to undergo his coronary bypass surgery more afternoon. Hemodynamically stable. No other significant events otherwise. On 06/25/2016, patient is doing well, patient is being considered for CABG today. Presently no cough no wheezing no shortness of breath, and the patient is hemodynamically stable. Objective - Vital Signs Vital signs: Vital Signs Temp 98.2 F 06/25/16 08:00 Pulse 87 06/25/16 11:00 Resp 31 H 06/25/16 11:00 BP 122/75 06/25/16 11:00 Pulse Ox 98 06/25/16 11:00 Intake & Output 06/24/16 06/25/16 06/25/16 18:59 06:59 18:59 Intake Total 948.564 963.457 242.255 Output Total 1325 790 Balance -376.436 173.457 242.255 Weight 85.5 kg 85.2 kg Intake: IV 900 405 100 0.9 180 100 Sodium Chloride 0.9% 1, 900 225 000 ml @ 75 mls/hr IV . [id number] RACHEL Rx#:[id number] Intake, IV Titration 48.564 558.457 142.255 Amount Heparin Sodium,Porcine/ 48.564 558.457 142.255 D5w Pmx 25,000 unit In Dextrose/Water 1 500ml. bag @ 12 UNITS/KG/HR 19. 05 mls/hr IV .Q24H RACHEL Rx #:[id number] Output: Urine 1325 790 Other: Voiding Method Urinal Urinal # Voids 1 1 1 - Exam Physical Exam: Revealed a 65-year-old in no distress. HEENT:[Neck is supple.] [No neck masses.] [No thyromegaly.] [No JVD.] Chest: [Clear throughout, no crackles, no rhonchi, no wheezes.] Cardiac Exam: [Normal S1 and S2, no S3 gallop, no murmur.] Abdomen: [Soft, nontender, no megaly, no rebound, no guarding, normal bowel sounds.] Extremities: [No clubbing, no edema, no cyanosis.] Neurological Exam: [No focal neurologic deficit.] - Labs CBC & Chem 7: 06/25/16 04:08 06/25/16 04:08 Labs: Abnormal Lab Results - Last 24 Hours (Table) 06/24/16 06/24/16 06/25/16 Range/Units 13:10 21:07 04:08 WBC 12.5 H (3.8-10.6) k/uL RBC 4.12 L (4.30-5.90) m/uL MCV 101.6 H (80.0-100.0) fL Neutrophils # 9.6 H (1.3-7.7) k/uL APTT (22.0-30.0) sec Chloride (98-107) mmol/L POC Glucose (mg/dL) 111 H (75-99) mg/dL Total Protein (6.3-8.2) g/dL Albumin (3.5-5.0) g/dL Crossmatch See Detail 06/25/16 06/25/16 Range/Units 04:08 04:08 WBC (3.8-10.6) k/uL RBC (4.30-5.90) m/uL MCV (80.0-100.0) fL Neutrophils # (1.3-7.7) k/uL APTT 44.4 H (22.0-30.0) sec Chloride 108 H (98-107) mmol/L POC Glucose (mg/dL) (75-99) mg/dL Total Protein 6.1 L (6.3-8.2) g/dL Albumin 3.4 L (3.5-5.0) g/dL Crossmatch Microbiology - Last 24 Hours (Table) 06/24/16 11:48 Urine Culture - Final Urine,Voided Assessment and Plan Plan: 1 triple-vessel disease status post non-ST segment elevation myocardial infarction. The patient is currently being evaluated for cardiac bypass surgery. The patient is currently on IV heparin and nitroglycerin. His remains free of any chest pain. 2 CHF with an ejection fraction of 35% along with segmental wall motion abnormalities 3 COPD 4 nicotine addiction/smoking 5 alcoholism suspected. 6 good performance status Plan: Continue present treatment plan, patient will undergo CABG today. We'll continue to follow. Time with Patient: Less than 30
[2016-06-25] MEDS ORDERED: ELECTROLYTE-R (PH 7.4) 1,000 ML IV.SOLN IV ONE (14:51)
[2016-06-25] MEDS ORDERED: HEPARIN SODIUM,PORCINE 10,000 UNIT/ML 1 ML VIAL ONE (14:51)
[2016-06-25] MEDS ORDERED: VECURONIUM 10 MG VIAL IV ONE (14:51)
[2016-06-25] MEDS ORDERED: SODIUM CHLORIDE 0.9% IRRIG 1,000 ML BTL IRRIGATION ONE (14:51)
[2016-06-25] MEDS ORDERED: fentaNYL (PF) 50 MCG/ML 2 ML AMP ONE (14:51)
[2016-06-25] MEDS ORDERED: PROPOFOL 10 MG/ML 20 ML VIAL IV ONE (14:51)
[2016-06-25] MEDS ORDERED: HEPARIN SODIUM,PORCINE 5,000 UNIT/ML 1 ML VIAL ONE (14:51)
[2016-06-25] MEDS ORDERED: PROTAMINE SULFATE 10 MG/ML 25 ML VIAL IV ONE (14:51)
[2016-06-25] MEDS ORDERED: ePHEDrine 50 MG/ML 1 ML AMP ONE (14:51)
[2016-06-25] MEDS ORDERED: SUFentanil 50 MCG/ML 2ML AMP ONE (14:51)
[2016-06-25] MEDS ORDERED: MORPHINE SULFATE 10 MG/ML SYRINGE ONE (14:51)
[2016-06-25 15:38] LABS: Glucose,Whole Blood 92 mg/dL (75-99)
[2016-06-25 17:22] LABS: Glucose,Whole Blood 102 mg/dL (75-99)
[2016-06-25] MEDS ORDERED: MORPHINE SULFATE 2 MG/ML SYRINGE IVP PRN (17:47)
[2016-06-25] MEDS ORDERED: ONDANSETRON 4 MG/2 ML VIAL IVP PRN (17:47)
[2016-06-25] MEDS ORDERED: BENZOCAINE/MENTHOL LOZENG 1 EACH LOZENGE MUCOUS MEM PRN (17:47)
[2016-06-25] MEDS ORDERED: Magnesium Replacement Protocol 1 EACH MISC MISCELLANE PRN (17:47)
[2016-06-25] MEDS ORDERED: METOCLOPRAMIDE 5 MG/ML 2 ML VIAL IVP PRN (17:47)
[2016-06-25] MEDS ORDERED: CALCIUM GLUCONATE 2,000 MG in SODIUM CHLORIDE 0.9% 100 ML IVPB ONE (17:47)
[2016-06-25] MEDS ORDERED: Phosphorus Replacement Protoco 1 EACH MISC MISCELLANE PRN (17:47)
[2016-06-25] MEDS ORDERED: CLEVIDIPINE BUTYRATE 25 MG in EMPTY BAG 1 BAG IV SCH (18:00)
[2016-06-25] MEDS ORDERED: PROPOFOL 500 MG in EMPTY BAG 1 BAG IV SCH (18:00)
[2016-06-25] MEDS ORDERED: DILTIAZEM 125 MG in SODIUM CHLORIDE 0.9% 100 ML IV SCH (18:00)
[2016-06-25 18:16] LABS: Glucose,Whole Blood 162 mg/dL (75-99)
[2016-06-25 18:35] LABS: Glucose,Whole Blood 186 mg/dL (75-99)
[2016-06-25 19:15] LABS: Glucose,Whole Blood 171 mg/dL (75-99)
[2016-06-25] MEDS ORDERED: ACETAMINOPHEN IV (For NPO) 1,000 MG in EMPTY BAG 1 BAG IVPB SCH (20:00)
[2016-06-25 20:38] LABS: Glucose,Whole Blood 114 mg/dL (75-99)
[2016-06-25] MEDS: LACTATED RINGERS 1,000 ML IV SCH (21:30)
[2016-06-25] MEDS: NITROGLYCERIN-D5W PMX 50 MG in DEXTROSE/WATER 1 250ML.BAG IV SCH (21:30)
[2016-06-25 21:54] LABS: Basophils % (A) 1 %; CH 33.9; CHCM 33.4; Eosinophils # (A) 0.1 k/uL (0-0.7); Eosinophils % (A) 1 %; HCT 32.6 % (39.0-53.0); HDW 2.31; Luc # (Auto) 0.02; Luc % (Auto) 0; Lymphocytes # (A) 1.1 k/uL (1.0-4.8); Lymphocytes % (A) 19 %; MCH 34.4 pg (25.0-35.0); MCHC 33.6 g/dL (31.0-37.0); MCV 102.3 fL (80.0-100.0); Macrocytosis Slight; Mean Platelet Volume 8.1; Monocytes # (A) 0.1 k/uL (0-1.0); Monocytes % (A) 1 %; Neutrophils # (A) 4.2 k/uL (1.3-7.7); Neutrophils % (A) 77 %; RBC 3.19 m/uL (4.30-5.90); RDW 13.6 % (11.5-15.5); WBC 5.4 k/uL (3.8-10.6); WBC (Perox) 5.75
[2016-06-25 22:00] LABS: Ionized Calcium 4.8 mg/dL (4.5-5.3)
[2016-06-25 22:04] LABS: INR 1.2 (<1.1); Partial Thromboplastin Time 32.6 sec (22.0-30.0); Prothrombin Time 12.1 sec (9.0-12.0)
[2016-06-25 22:05] LABS: Glucose,Whole Blood 101 mg/dL (75-99)
--- NOTE | 2016-06-25 22:06 | XR ---
EXAMINATION TYPE: XR chest 1V portable DATE OF EXAM: 06/25/2016 9:51 PM COMPARISON: 06/22/2016 HISTORY: Postop open heart surgery. TECHNIQUE: Single frontal view of the chest is obtained. FINDINGS: There is a right chest tube noted. There are sternal wires. There is a right jugular jas ter with the tip in the right pulmonary artery. There is also a left chest tube. I see no pneumothora x. There is no heart failure. Lungs are clear of consolidation. There is nasogastric tube. Endotrache al tube is in good position. IMPRESSION: Postsurgical changes. No complicating process seen. No heart failure.
[2016-06-25 22:08] LABS: ABG Base Excess -0.2 mmol/L; ABG HCO3 24 mmol/L (21-25); ABG PCO2 37 mmHg (35-45); ABG PH 7.42 (7.35-7.45); ABG PO2 108 mmHg (83-108); ABG TCO2 25 mmol/L (19-24)
[2016-06-25 22:14] LABS: ALT 30 U/L (21-72); AST 30 U/L (17-59); Alkaline Phosphatase 29 U/L (38-126); Anion Gap 6 mmol/L; Blood Urea Nitrogen 14 mg/dL (9-20); Calcium 7.7 mg/dL (8.4-10.2); Carbon Dioxide 26 mmol/L (22-30); Chloride 107 mmol/L (98-107); Glucose 96 mg/dL (74-99); Magnesium 2.4 mg/dL (1.6-2.3); Non-African American GFR(MDRD) >60 (>60 ml/min/1.73 sqM); Potassium 4.2 mmol/L (3.5-5.1); Sodium 139 mmol/L (137-145); Total Bilirubin 0.8 mg/dL (0.2-1.3)
[2016-06-25] MEDS: ACETAMINOPHEN IV (For NPO) 1,000 MG in EMPTY BAG 1 BAG IVPB SCH (22:30)
[2016-06-25] MEDS: ALBUMIN HUMAN 5% 250 ML in EMPTY BAG 1 BAG IVPB PRN ×2 (23:00→23:40)
[2016-06-25 23:18] LABS: Glucose,Whole Blood 123 mg/dL (75-99)
[2016-06-26 00:19] LABS: Glucose,Whole Blood 135 mg/dL (75-99)
[2016-06-26] MEDS: INSULIN REGULAR 100 UNIT in SODIUM CHLORIDE 0.9% 100 ML IV SCH (00:20)
[2016-06-26 00:34] LABS: Basophils % (A) 1 %; CH 34.3; CHCM 33.6; Eosinophils # (A) 0.1 k/uL (0-0.7); Eosinophils % (A) 1 %; HCT 29.6 % (39.0-53.0); HDW 2.35; HGB 9.8 gm/dL (13.0-17.5); Luc # (Auto) 0.05; Luc % (Auto) 1; Lymphocytes # (A) 0.9 k/uL (1.0-4.8); Lymphocytes % (A) 13 %; MCH 33.8 pg (25.0-35.0); MCV 102.7 fL (80.0-100.0); Macrocytosis Slight; Mean Platelet Volume 8.2; Monocytes # (A) 0.4 k/uL (0-1.0); Monocytes % (A) 6 %; Neutrophils # (A) 5.4 k/uL (1.3-7.7); Neutrophils % (A) 79 %; RBC 2.88 m/uL (4.30-5.90); RDW 13.8 % (11.5-15.5); WBC 6.8 k/uL (3.8-10.6); WBC (Perox) 7.02
[2016-06-26] MEDS: MUPIROCIN 2% OINT 22 GM TUBE NASAL SCH ×3 (00:36→20:12)
[2016-06-26 00:38] LABS: Ionized Calcium 4.6 mg/dL (4.5-5.3)
[2016-06-26 00:45] LABS: ALT 34 U/L (21-72); AST 31 U/L (17-59); Alkaline Phosphatase 29 U/L (38-126); Anion Gap 9 mmol/L; Blood Urea Nitrogen 15 mg/dL (9-20); Calcium 7.5 mg/dL (8.4-10.2); Carbon Dioxide 24 mmol/L (22-30); Chloride 105 mmol/L (98-107); Glucose 126 mg/dL (74-99); Magnesium 2.2 mg/dL (1.6-2.3); Non-African American GFR(MDRD) >60 (>60 ml/min/1.73 sqM); Potassium 3.9 mmol/L (3.5-5.1); Sodium 138 mmol/L (137-145); Total Bilirubin 0.9 mg/dL (0.2-1.3)
[2016-06-26] MEDS: ceFAZolin 2 GM in SODIUM CHLORIDE 0.9% 100 ML IVPB SCH ×3 (00:51→17:10)
[2016-06-26] MEDS ORDERED: NOREPINEPHRINE 16 MG in SODIUM CHLORIDE 0.9% 250 ML IV SCH (01:00)
[2016-06-26 01:15] LABS: Glucose,Whole Blood 133 mg/dL (75-99)
[2016-06-26] MEDS ORDERED: POTASSIUM CHLORIDE ORAL LIQUID 40 MEQ/30 ML CUP NG-TUBE SCH (02:00)
[2016-06-26 02:02] LABS: Glucose,Whole Blood 136 mg/dL (75-99)
[2016-06-26] MEDS: IPRATROPIUM-ALBUTEROL 3 ML NEB INHALATION SCH ×5 (02:44→19:02)
[2016-06-26 02:53] LABS: ABG Base Excess 1.4 mmol/L; ABG HCO3 25 mmol/L (21-25); ABG PCO2 40 mmHg (35-45); ABG PH 7.42 (7.35-7.45); ABG PO2 108 mmHg (83-108); ABG TCO2 27 mmol/L (19-24)
[2016-06-26] MEDS: HEPARIN SODIUM,PORCINE 5,000 UNIT/ML 1 ML VIAL SQ SCH ×4 (03:00→23:16)
[2016-06-26] MEDS: ACETAMINOPHEN IV (For NPO) 1,000 MG in EMPTY BAG 1 BAG IVPB SCH ×3 (03:03→17:06)
[2016-06-26 03:09] LABS: Glucose,Whole Blood 150 mg/dL (75-99)
[2016-06-26 04:14] LABS: Glucose,Whole Blood 135 mg/dL (75-99)
[2016-06-26] MEDS ORDERED: NOREPINEPHRINE 4 MG-0.9% NS PMX 250 ML IV ONE (04:32)
[2016-06-26 05:08] LABS: Basophils % (A) 0 %; CH 33.5; Eosinophils % (A) 1 %; HCT 31.3 % (39.0-53.0); HDW 2.31; HGB 10.3 gm/dL (13.0-17.5); Luc # (Auto) 0.08; Luc % (Auto) 1; Lymphocytes # (A) 0.6 k/uL (1.0-4.8); Lymphocytes % (A) 9 %; MCH 33.5 pg (25.0-35.0); MCHC 32.7 g/dL (31.0-37.0); MCV 102.2 fL (80.0-100.0); Macrocytosis Slight; Mean Platelet Volume 7.7; Monocytes # (A) 0.5 k/uL (0-1.0); Monocytes % (A) 7 %; Neutrophils # (A) 5.8 k/uL (1.3-7.7); Neutrophils % (A) 82 %; RBC 3.06 m/uL (4.30-5.90); RDW 13.7 % (11.5-15.5); WBC 7.1 k/uL (3.8-10.6); WBC (Perox) 7.59
[2016-06-26 05:09] LABS: INR 1.1 (<1.1); Partial Thromboplastin Time 29.9 sec (22.0-30.0); Prothrombin Time 10.9 sec (9.0-12.0)
[2016-06-26 05:10] LABS: Glucose,Whole Blood 135 mg/dL (75-99)
[2016-06-26] MEDS: NOREPINEPHRINE 4 MG in SODIUM CHLORIDE 0.9% 250 ML IV SCH ×4 (05:14→13:13)
[2016-06-26 05:16] LABS: Ionized Calcium 4.8 mg/dL (4.5-5.3)
[2016-06-26 05:24] LABS: ALT 31 U/L (21-72); AST 37 U/L (17-59); Alkaline Phosphatase 30 U/L (38-126); Anion Gap 8 mmol/L; Blood Urea Nitrogen 15 mg/dL (9-20); Calcium 7.7 mg/dL (8.4-10.2); Carbon Dioxide 25 mmol/L (22-30); Chloride 106 mmol/L (98-107); Glucose 118 mg/dL (74-99); Magnesium 2.1 mg/dL (1.6-2.3); Non-African American GFR(MDRD) >60 (>60 ml/min/1.73 sqM); Phosphorous 3.4 mg/dL (2.5-4.5); Potassium 4.1 mmol/L (3.5-5.1); Sodium 139 mmol/L (137-145); Total Bilirubin 0.7 mg/dL (0.2-1.3); Total Protein 5.4 g/dL (6.3-8.2)
[2016-06-26 06:19] LABS: Glucose,Whole Blood 136 mg/dL (75-99)
[2016-06-26] MEDS: ALBUMIN HUMAN 5% 250 ML in EMPTY BAG 1 BAG IVPB PRN ×6 (06:26→15:48)
[2016-06-26 07:12] LABS: Glucose,Whole Blood 136 mg/dL (75-99)
[2016-06-26] MEDS: NITROGLYCERIN-D5W PMX 50 MG in DEXTROSE/WATER 1 250ML.BAG IV SCH ×3 (07:20→20:12)
--- NOTE | 2016-06-26 07:46 | XR ---
EXAMINATION TYPE: XR chest 1V portable DATE OF EXAM: 06/26/2016 6:35 AM COMPARISON: Prior chest x-ray May HISTORY: Postop TECHNIQUE: Single frontal view of the chest is obtained. FINDINGS: Bilateral chest tubes remain in place, endotracheal tube and NG tube have been removed. Ri ght jugular central venous catheter shows the distal tip in the right pulmonary artery. No sizable pn eumothorax or pleural effusion. Basilar increased density persists. Cardiac mediastinal silhouette, p ulmonary vascularity and luna are stable. Interstitium mildly increased. IMPRESSION: Interval extubation. There may be a component of volume overload, atelectasis, follow-up suggested.
--- NOTE | 2016-06-26 07:57 | OP ---
DATE OF SERVICE: 06/25/2016 SURGEON: Sidney Zazueta MD DERRICK BUILDER: Paul SHEPHERD, Ruperto JENKINS PREOPERATIVE DIAGNOSES: Triple-vessel coronary artery disease, occluded collateralized left anterior descending artery with evidence of an old anterior wall myocardial infarction, moderate left ventricular dysfunction, tobacco abuse with chronic obstructive pulmonary disease, Strong family history of CAD. POSTOPERATIVE DIAGNOSES: Triple-vessel coronary artery disease, occluded collateralized left anterior descending artery with evidence of an old anterior wall myocardial infarction, moderate left ventricular dysfunction, tobacco abuse with chronic obstructive pulmonary disease, Strong family history of CAD. OPERATION: 1. Multiple arterial quadruple coronary artery bypass grafting using the left internal mammary artery to the left anterior descending artery, left radial artery from the aorta sequentially to the first obtuse marginal artery in a [id number] fashion, then to the second obtuse marginal artery in an end-to-side fashion, reverse saphenous vein graft from the aorta to the posterior descending artery. 2. Endoscopic harvesting of the left greater saphenous vein. 3. Endoscopic harvesting of the left radial artery. 4. Intraoperative transesophageal echocardiogram and epiaortic scanning. ANESTHESIA: ESTIMATED BLOOD LOSS: SPECIMENS REMOVED: COMPLICATIONS: OPERATIVE FINDINGS: INDICATION FOR SURGERY: Patient is a 65-year-old gentleman with extensive tobacco abuse history and EtOH abuse, admitted for 3 week history of scattering chest pain and an EKG showing fixed ST elevation in the precordial leads. He was admitted to the hospital and work-up included cardiac catheterization that showed subtotally occluded mid-left anterior descending artery, severe stenosis of the second obtuse marginal artery, and moderate to severe stenosis of the first obtuse marginal artery, and moderate stenosis of the right coronary artery. His 2-D echo showed an ejection fraction of around 35% with a distal anteroapical severe hypokinesia to akinesia. Patient was stabilized, seen by Pulmonary, given some steroids and has being taken today for urgent coronary artery revascularization. Risks, benefits, and alternatives were discussed with him. He understood them and agreed to proceed. DESCRIPTION OF THE PROCEDURE: Patient in supine position, had the right internal jugular Hinckley-Clay catheter inserted in the right radial arterial line. He had normal PA pressure and good cardiac index. Subsequently he was brought to the operating room where general endotracheal anesthesia was induced uneventfully. A Dawn catheter was inserted. Two gm of cefazolin were given intravenously. The chest, abdomen and both lower extremities and left upper extremities were prepped and draped using ChloraPrep. Ioban was used to cover the skin. HARSHA showed mid to distal anteroapical hypokinesia with no significant valvular abnormality with mild to moderate LV dysfunction. Midline sternotomy was performed and no bone wax was used. The left devendra-sternum was elevated and the left internal mammary artery was harvested in a somewhat skeletonized fashion. The left pleura was intentionally opened in this process and drained with a 28 [place] chest tube. I also opened, the right pleura and drained it with another 28 [place] chest tube. Mediastinal fat was transected between 2 ties and epiaortic scanning revealed normal ascending aorta. Pericardium was opened in an inverted T fashion and a pericardial cradle was created. Findings included an elongated soft aorta and normal-sized heart. In the same setting, the left greater saphenous vein was harvested endoscopically from groin to mid lower leg level. That vein was of fair quality with several branching, but appeared to be better than the right vein by ultrasound. It was around 4 mm in diameter and moderately thickened. The leg incisions were closed over a drain. The vein was harvested after administration of 2500 units of heparin. In the same setting, the left radial artery was harvested endoscopically after a clamping trial at the level of the wrist that revealed preserved pulsatile O2 signal in the left index finger. The RADIAL artery branches were clipped and the fascia was opened all along its volar aspect for better distention. The forearm incision was closed over a MANISHA drain. After systemic heparinization and placement of respective pursestring, aortic and venous cannulation was performed. Antegrade as well as retrograde cardioplegia catheters were placed. All the conduits were prepared and the mammary artery was double clipped distally and transected, had an excellent pulsatile flow in it and was thin-walled, spastic around 1.75 to 2 mm in diameter. Cardiopulmonary bypass was started and with the heart empty and warm, we looked at the target and appeared that the posterior descending artery, as the right coronary artery was diseased up to its bifurcation, is a good site for bypass. The LAD in its distal third, the first obtuse marginal artery, and the second obtuse marginal artery were adequate size and deemed suitable for bypass. During aortic clamping, myocardial protection was achieved with an initial dose of around 900 mL of cold blood cardioplegia with adequate arrest at around 200 mL, followed by 500 mL of retrograde cold blood cardioplegia. All subsequent doses were given retrograde at 15 minute interval. The left dose was warm blood via retrograde route. The first distal anastomosis was between a segment of vein graft that as mentioned above was of fair quality, but the best we had and the posterior descending artery which was around 1.75 mm in diameter, thin-walled, using Prolene 7-0 in continuous fashion. That anastomosis was hemostatic with good flow in it. The second distal anastomosis was between the radial artery and the second obtuse marginal artery, which was relatively small, around 1.5 mm in diameter and thin-walled using Prolene 7-0 in continuous fashion. In view of the quality of the vein which was not to good, I decided to sequential that radial artery to the first obtuse marginal artery, although the stenosis of the first obtuse marginal artery was moderate in nature, using Prolene 7-0 in continuous fashion and in a [id number] alivia-shaped anastomosis. That appeared to be also hemostatic. The fourth and last distal anastomosis was between in the left internal mammary artery and the mid to distal third of the left anterior descending artery, which was opened, was thin-walled, was around 1.5 mm in diameter, using Prolene 7-0 in continuous fashion. The mammary pedicle was affixed to the epicardium with Prolene 6-0 suture. Rewarming was started as we performed the 2 proximal anastomosis of the radial artery to the aorta using Prolene 7-0 in continuous fashion and the vein to the aorta using a Prolene 6-0 in continuous fashion. The aorta was unclamped and flow was re-established. Patient regained spontaneous sinus rhythm with normal EKG. We checked all anastomosis and they appeared to be satisfactory. Test dose and full dose protamine was given. Decannulation proceeded. The aortic cannulation site required an additional pledgeted Prolene 4-0. Two substernal chest tubes were placed. A groove was made in the left pleural pericardial fat to accommodate the mammary artery medial to the lung and away from the posterior sternal table. The mediastinal fat was loosely approximated over the aorta and there was not much fat to close and cover the heart. HARSHA showed good left ventricular function and improvement in the anterior apical motion. To mention that there was some macroscopic changes of recent OH in the apical region. After ensuring adequate hemostasis and hemodynamics and after correct sponge, instrument and needle count, the sternum was approximated using several [id number] [place] cable after interposing fibrillar between the sternal edges. Thorough irrigation with cefazolin followed. The rest of the closure proceeded in layers. Patient did not receive any blood bank product and received 500 mL of Cell Saver blood. He was transferred to the ICU with a mean pressure of 65, heart rate of 77, normal EKG. PA pressure of 20/11 on a low-dose nitroglycerin. MTDD
[2016-06-26 08:16] LABS: Glucose,Whole Blood 140 mg/dL (75-99)
[2016-06-26] MEDS ORDERED: METOPROLOL TARTRATE 12.5 MG TAB PO SCH (09:00)
[2016-06-26] MEDS ORDERED: methylPREDNISolone SOD SUCCI 40 MG/ML 1 ML VIAL IV SCH (09:00)
[2016-06-26] MEDS: VITAMIN A 10,000 UNIT CAPSULE PO SCH (09:04)
[2016-06-26] MEDS: ASPIRIN 325 MG TAB PO SCH (09:20)
[2016-06-26] MEDS: ATORVASTATIN 40 MG TAB PO SCH (09:20)
[2016-06-26] MEDS: CLOPIDOGREL 75 MG TAB PO SCH (09:21)
[2016-06-26] MEDS: PANTOPRAZOLE 40 MG/10 ML VIAL IVP SCH (09:22)
[2016-06-26] MEDS: THIAMINE 100 MG/ML 2 ML VIAL IVP SCH (09:22)
[2016-06-26 09:30] LABS: Glucose,Whole Blood 155 mg/dL (75-99)
[2016-06-26 10:07] LABS: Glucose,Whole Blood 142 mg/dL (75-99)
[2016-06-26 10:59] LABS: Glucose,Whole Blood 125 mg/dL (75-99)
[2016-06-26 12:00] LABS: Glucose,Whole Blood 124 mg/dL (75-99)
--- NOTE | 2016-06-26 12:14 | PN ---
Mr. Mccormack is a 65-year-old male who presented with myocardial infarction, was found to have severe triple vessel coronary artery disease and impaired left ventricular systolic function. Underwent coronary bypass grafting yesterday by Dr. Zazueta. He is extubated, sitting up in the chair, feeling reasonably well. He received a CAMP to the LAD, left radial to the first obtuse marginal branch and second obtuse marginal branch and then saphenous vein graft to the PDA. He is in sinus mechanism, hemodynamically stable. He is on low dose Levophed and nitrate. On his HARSHA intraoperatively there was improvement in the left ventricular systolic function in the anterior wall as reported. He continues to be at this time on aspirin, Lipitor 40 mg daily, Plavix 75 mg daily. PHYSICAL EXAMINATION: Blood pressure 130/60 with a heart rate in the 80s. PA pressure of 20/13. Lungs with mild decrease in breath sounds. HEART: Regular rate and rhythm, S1, S2, plus rub. No gallop. ABDOMEN: Soft, nontender. EXTREMITIES: Ike wrapping in place. Lab data revealed a hemoglobin of 10.3. BUN and creatinine 15 and 0.7. IMPRESSION: 1. Status post coronary artery bypass grafting. 2. Ischemic cardiomyopathy appears to be improved. 3. Prior history of smoking. RECOMMENDATION: Once the patient is off his Levothroid and if his pressure is stable, then I will reinitiate treatment with the beta linda and the IKE inhibitor. Otherwise, continue the rest of his medical regimen. Increase his activity gradually and depending on his progress, further recommendation will be made.
[2016-06-26 13:20] LABS: Glucose,Whole Blood 106 mg/dL (75-99)
[2016-06-26 14:00] LABS: ABG Base Excess 1.2 mmol/L; ABG HCO3 25 mmol/L (21-25); ABG Oxygen Saturation 99.9 % (94-97); ABG PCO2 37 mmHg (35-45); ABG PH 7.44 (7.35-7.45); ABG PO2 274 mmHg (83-108); ABG TCO2 26 mmol/L (19-24)
[2016-06-26 14:01] LABS: ABG PCO2 52 mmHg (35-45); ABG PH 7.32 (7.35-7.45)
[2016-06-26 14:02] LABS: ABG HCO3 26 mmol/L (21-25); ABG Oxygen Saturation 90.8 % (94-97); ABG PO2 66 mmHg (83-108); ABG TCO2 28 mmol/L (19-24)
[2016-06-26 14:03] LABS: ABG Base Excess 1.7 mmol/L; ABG HCO3 26 mmol/L (21-25); ABG Oxygen Saturation 99.9 % (94-97); ABG PCO2 43 mmHg (35-45); ABG PH 7.41 (7.35-7.45); ABG PO2 319 mmHg (83-108); ABG TCO2 27 mmol/L (19-24)
[2016-06-26 14:04] LABS: ABG Base Excess 1.2 mmol/L; ABG HCO3 25 mmol/L (21-25); ABG Oxygen Saturation 99.8 % (94-97); ABG PCO2 41 mmHg (35-45); ABG PH 7.41 (7.35-7.45); ABG PO2 245 mmHg (83-108); ABG TCO2 27 mmol/L (19-24)
[2016-06-26 14:05] LABS: ABG Base Excess 0.8 mmol/L; ABG HCO3 25 mmol/L (21-25); ABG Oxygen Saturation 99.9 % (94-97); ABG PCO2 42 mmHg (35-45); ABG PO2 325 mmHg (83-108); ABG TCO2 27 mmol/L (19-24)
[2016-06-26 14:10] LABS: ABG HCO3 20 mmol/L (21-25); ABG PCO2 33 mmHg (35-45); ABG PO2 185 mmHg (83-108); ABG TCO2 21 mmol/L (19-24)
[2016-06-26 14:11] LABS: ABG Oxygen Saturation 99.7 % (94-97)
[2016-06-26 14:13] LABS: ABG Base Excess -1.4 mmol/L; ABG HCO3 24 mmol/L (21-25); ABG Oxygen Saturation 80.4 % (94-97); ABG PCO2 45 mmHg (35-45); ABG PH 7.34 (7.35-7.45); ABG PO2 47 mmHg (83-108); ABG TCO2 25 mmol/L (19-24)
[2016-06-26 14:31] LABS: Glucose,Whole Blood 115 mg/dL (75-99)
[2016-06-26] MEDS: LACTATED RINGERS 1,000 ML IV SCH (14:35)
--- NOTE | 2016-06-26 14:40 | P.PN ---
Subjective Principal diagnosis: Triple vessel coronary artery disease, occluded collateralized left anterior descending artery with evidence of an old anterior wall myocardial infarction, moderate left ventricular dysfunction, tobacco abuse with chronic obstructive pulmonary disease, strong family history. POD #1 multiple arterial quadruple coronary artery bypass grafting using the left internal mammary artery to the left anterior descending artery, left radial artery from the aorta sequentially to the first obtuse marginal artery in a [id number] fashion. Then to the second obtuse marginal artery in an end- to-side fashion, reverse saphenous vein graft from the aorta to the posterior descending artery. Endoscopic harvesting of the left greater saphenous vein. Endoscopic harvesting of the left radial artery. Intraoperative transesophageal echocardiogram and epi-aortic scanning. Patient currently sitting up in the chair in no apparent distress. States his pain is controlled. Objective - Vital Signs Vital signs: Vital Signs Temp 98.2 F 06/25/16 08:00 Pulse 92 06/26/16 08:30 Resp 19 06/26/16 07:15 BP 63/44 06/25/16 23:45 Pulse Ox 97 06/26/16 08:18 Intake & Output 06/25/16 06/26/16 06/26/16 18:59 06:59 18:59 Intake Total 230.222 1311.697 313.208 Output Total 6948 49 Balance 242.255 -4090.303 264.208 Weight 86.3 kg Intake: IV 100 721 59 0.9 100 CO/CI 160 LR 475 50 PRESSURE BAGS 86 9 Intake, IV Titration 116.088 9556.697 254.208 Amount ACETAMINOPHEN IV (For NPO 200 ) 1,000 mg In Empty Bag 1 bag @ 400 mls/hr IVPB Q6H RACHEL Rx#:[id number] Albumin Human 5% 250 ml 500 In Empty Bag 1 bag @ 250 mls/hr IVPB Q1HR PRN Rx#: [id number] Albumin Human 5% 500 ml 750 250 In Empty Bag 1 bag @ 250 mls/hr IVPB ONCE PRN Rx#: [id number] Clevidipine Butyrate 25 1.5 mg In Empty Bag 1 bag @ 1 MG/HR 2 mls/hr IV .Q24H RACHEL Rx#:[id number] Heparin Sodium,Porcine/ 142.255 D5w Pmx 25,000 unit In Dextrose/Water 1 500ml. bag @ 12 UNITS/KG/HR 19. 05 mls/hr IV .Q24H RACHEL Rx #:[id number] Insulin Regular 100 unit 4.447 4.158 In Sodium Chloride 0.9% 100 ml @ Per Protocol IV .Q0M RACHEL Rx#:[id number] Nitroglycerin-D5w Pmx 50 4.5 0.05 mg In Dextrose/Water 1 250ml.bag @ 10 MCG/MIN 3 mls/hr IV .Q24H RACHEL Rx#: [id number] Norepinephrine 4 mg In 254.953 Sodium Chloride 0.9% 250 ml @ Titrate IV .Q0M RACHEL Rx#:[id number] Propofol 500 mg In Empty 21.297 Bag 1 bag @ Titrate IV . Q0M RACHEL Rx#:[id number] ceFAZolin 2 gm In Sodium 100 Chloride 0.9% 100 ml @ 100 mls/hr IVPB Q8HR RACHEL Rx#:[id number] Oral 300 Output: Chest Tube Drainage 758 24 Left Pleural 196 4 Mediastinal x 2 480 20 Right Pleural 82 0 Drainage 60 Left Upper Calf 35 Left Wrist 25 Urine 4130 25 Estimated Blood Loss 2000 Other: Voiding Method Urinal Indwelling Catheter # Voids 1 ABP, PAP, CO, CI - Last Documented Arterial Blood Pressure 130/61 Pulmonary Artery Pressure 20/13 Cardiac Output 6.7 Cardiac Index 3.3 - Constitutional General appearance: Present: cooperative, no acute distress - Respiratory Details: Lungs sounds diminished, coarse in bilateral bases. Respirations even, nonlabored. Currently on 5 L nasal cannula. Able to achieve 2000 mL on his incentive spirometry. Right, left, mediastinal chest tubes all to -20 cm wall suction, draining serosanguineous fluid. Right pleural chest tube with 80 mL output since surgery, left pleural chest tube with 200 mL output since surgery, mediastinal chest tube with 520 mL output since surgery. Positive air leak in the mediastinal chest tube. - Cardiovascular Details: S1, S2 present. Regular rate and rhythm, normal sinus rhythm on telemetry. Chest stable. Heart hugger in place with patient demonstrating appropriate use. Teds, SCDs present. Trace edema to left lower extremity. - Gastrointestinal Gastrointestinal Comment(s): Abdomen soft, nontender, nondistended. Hypoactive bowel sounds present. Denies flatus, positive belching. - Genitourinary Genitourinary Comment(s): Dawn present draining clear yellow urine. Approximately 30 to 100 mL per hour. - Integumentary Integumentary Comment(s): Anterior chest cover with dry intact silver dressing. Left radial harvest site wrapped with Ike wrap, MANISHA with serosanguineous drainage, minimal output. Left lower extremity EVH site with MANISHA draining serosanguineous drainage, minimal output. - Musculoskeletal Musculoskeletal Comment(s): Up to chair with assist 2. Equal strength bilaterally. - Psychiatric Psychiatric: Present: A&O x's 3, appropriate affect, intact judgment & insight - Allied health notes Allied health notes reviewed: nursing - Labs CBC & Chem 7: 06/26/16 04:10 06/26/16 04:10 Labs: Abnormal Lab Results - Last 24 Hours (Table) 06/24/16 06/25/16 06/25/16 Range/Units 13:10 17:08 18:03 RBC (4.30-5.90) m/uL Hgb (13.0-17.5) gm/dL Hct (39.0-53.0) % MCV (80.0-100.0) fL Plt Count (150-450) k/uL Lymphocytes # (1.0-4.8) k/uL PT (9.0-12.0) sec APTT (22.0-30.0) sec ABG Total CO2 (19-24) mmol/L ABG O2 Saturation (94-97) % Glucose (74-99) mg/dL POC Glucose (mg/dL) 102 H 162 H (75-99) mg/dL Calcium (8.4-10.2) mg/dL Magnesium (1.6-2.3) mg/dL Alkaline Phosphatase (38-126) U/L Total Protein (6.3-8.2) g/dL Albumin (3.5-5.0) g/dL Crossmatch See Detail 06/25/16 06/25/16 06/25/16 Range/Units 18:32 19:02 20:23 RBC (4.30-5.90) m/uL Hgb (13.0-17.5) gm/dL Hct (39.0-53.0) % MCV (80.0-100.0) fL Plt Count (150-450) k/uL Lymphocytes # (1.0-4.8) k/uL PT (9.0-12.0) sec APTT (22.0-30.0) sec ABG Total CO2 (19-24) mmol/L ABG O2 Saturation (94-97) % Glucose (74-99) mg/dL POC Glucose (mg/dL) 186 H 171 H 114 H (75-99) mg/dL Calcium (8.4-10.2) mg/dL Magnesium (1.6-2.3) mg/dL Alkaline Phosphatase (38-126) U/L Total Protein (6.3-8.2) g/dL Albumin (3.5-5.0) g/dL Crossmatch 06/25/16 06/25/16 06/25/16 Range/Units 21:40 21:40 21:40 RBC 3.19 L (4.30-5.90) m/uL Hgb 11.0 L (13.0-17.5) gm/dL Hct 32.6 L (39.0-53.0) % MCV 102.3 H (80.0-100.0) fL Plt Count 123 L (150-450) k/uL Lymphocytes # (1.0-4.8) k/uL PT 12.1 H (9.0-12.0) sec APTT 32.6 H (22.0-30.0) sec ABG Total CO2 (19-24) mmol/L ABG O2 Saturation (94-97) % Glucose (74-99) mg/dL POC Glucose (mg/dL) (75-99) mg/dL Calcium 7.7 L (8.4-10.2) mg/dL Magnesium 2.4 H (1.6-2.3) mg/dL Alkaline Phosphatase 29 L (38-126) U/L Total Protein 5.0 L (6.3-8.2) g/dL Albumin 3.1 L (3.5-5.0) g/dL Crossmatch 06/25/16 06/25/16 06/25/16 Range/Units 22:01 22:01 23:16 RBC (4.30-5.90) m/uL Hgb (13.0-17.5) gm/dL Hct (39.0-53.0) % MCV (80.0-100.0) fL Plt Count (150-450) k/uL Lymphocytes # (1.0-4.8) k/uL PT (9.0-12.0) sec APTT (22.0-30.0) sec ABG Total CO2 25 H (19-24) mmol/L ABG O2 Saturation 98.0 H (94-97) % Glucose (74-99) mg/dL POC Glucose (mg/dL) 101 H 123 H (75-99) mg/dL Calcium (8.4-10.2) mg/dL Magnesium (1.6-2.3) mg/dL Alkaline Phosphatase (38-126) U/L Total Protein (6.3-8.2) g/dL Albumin (3.5-5.0) g/dL Crossmatch 06/26/16 06/26/16 06/26/16 Range/Units 00:10 00:10 00:12 RBC 2.88 L (4.30-5.90) m/uL Hgb 9.8 L (13.0-17.5) gm/dL Hct 29.6 L (39.0-53.0) % MCV 102.7 H (80.0-100.0) fL Plt Count 136 L (150-450) k/uL Lymphocytes # 0.9 L (1.0-4.8) k/uL PT (9.0-12.0) sec APTT (22.0-30.0) sec ABG Total CO2 (19-24) mmol/L ABG O2 Saturation (94-97) % Glucose 126 H (74-99) mg/dL POC Glucose (mg/dL) 135 H (75-99) mg/dL Calcium 7.5 L (8.4-10.2) mg/dL Magnesium (1.6-2.3) mg/dL Alkaline Phosphatase 29 L (38-126) U/L Total Protein 5.0 L (6.3-8.2) g/dL Albumin 3.2 L (3.5-5.0) g/dL Crossmatch 06/26/16 06/26/16 06/26/16 Range/Units 01:13 02:01 02:30 RBC (4.30-5.90) m/uL Hgb (13.0-17.5) gm/dL Hct (39.0-53.0) % MCV (80.0-100.0) fL Plt Count (150-450) k/uL Lymphocytes # (1.0-4.8) k/uL PT (9.0-12.0) sec APTT (22.0-30.0) sec ABG Total CO2 27 H (19-24) mmol/L ABG O2 Saturation 98.0 H (94-97) % Glucose (74-99) mg/dL POC Glucose (mg/dL) 133 H 136 H (75-99) mg/dL Calcium (8.4-10.2) mg/dL Magnesium (1.6-2.3) mg/dL Alkaline Phosphatase (38-126) U/L Total Protein (6.3-8.2) g/dL Albumin (3.5-5.0) g/dL Crossmatch 06/26/16 06/26/16 06/26/16 Range/Units 03:07 04:10 04:10 RBC 3.06 L (4.30-5.90) m/uL Hgb 10.3 L (13.0-17.5) gm/dL Hct 31.3 L (39.0-53.0) % MCV 102.2 H (80.0-100.0) fL Plt Count (150-450) k/uL Lymphocytes # 0.6 L (1.0-4.8) k/uL PT (9.0-12.0) sec APTT (22.0-30.0) sec ABG Total CO2 (19-24) mmol/L ABG O2 Saturation (94-97) % Glucose 118 H (74-99) mg/dL POC Glucose (mg/dL) 150 H (75-99) mg/dL Calcium 7.7 L (8.4-10.2) mg/dL Magnesium (1.6-2.3) mg/dL Alkaline Phosphatase 30 L (38-126) U/L Total Protein 5.4 L (6.3-8.2) g/dL Albumin 3.4 L (3.5-5.0) g/dL Crossmatch 06/26/16 06/26/16 06/26/16 Range/Units 04:12 05:08 06:17 RBC (4.30-5.90) m/uL Hgb (13.0-17.5) gm/dL Hct (39.0-53.0) % MCV (80.0-100.0) fL Plt Count (150-450) k/uL Lymphocytes # (1.0-4.8) k/uL PT (9.0-12.0) sec APTT (22.0-30.0) sec ABG Total CO2 (19-24) mmol/L ABG O2 Saturation (94-97) % Glucose (74-99) mg/dL POC Glucose (mg/dL) 135 H 135 H 136 H (75-99) mg/dL Calcium (8.4-10.2) mg/dL Magnesium (1.6-2.3) mg/dL Alkaline Phosphatase (38-126) U/L Total Protein (6.3-8.2) g/dL Albumin (3.5-5.0) g/dL Crossmatch 06/26/16 06/26/16 Range/Units 07:10 08:15 RBC (4.30-5.90) m/uL Hgb (13.0-17.5) gm/dL Hct (39.0-53.0) % MCV (80.0-100.0) fL Plt Count (150-450) k/uL Lymphocytes # (1.0-4.8) k/uL PT (9.0-12.0) sec APTT (22.0-30.0) sec ABG Total CO2 (19-24) mmol/L ABG O2 Saturation (94-97) % Glucose (74-99) mg/dL POC Glucose (mg/dL) 136 H 140 H (75-99) mg/dL Calcium (8.4-10.2) mg/dL Magnesium (1.6-2.3) mg/dL Alkaline Phosphatase (38-126) U/L Total Protein (6.3-8.2) g/dL Albumin (3.5-5.0) g/dL Crossmatch Microbiology - Last 24 Hours (Table) 06/24/16 11:48 Urine Culture - Final Urine,Voided - Imaging and Cardiology Chest x-ray: report reviewed, image reviewed Assessment and Plan (1) Myocardial infarction Status: Acute (2) Coronary artery disease Status: Acute (3) Left ventricular dysfunction Status: Acute (4) Tobacco abuse Status: Acute (5) COPD (chronic obstructive pulmonary disease) Status: Acute Plan: 1. Continue aspirin, statin, Plavix. Will hold beta linda for now secondary to hypotension. 2. Wean from levo as tolerated. 3. When able will DC nitro drip, add calcium channel linda to prevent radial artery spasm. 4. Wean O2 as tolerated. Continue incentive spirometry use. 5. Increase activity as tolerated. PT to follow. 6. DC [place]. 7. IV steroids per pulmonology. 8. GI/DVT prophylaxis. 9. More recommendations as patient progresses. Time with Patient: Greater than 30
[2016-06-26 15:04] LABS: Glucose,Whole Blood 110 mg/dL (75-99)
--- NOTE | 2016-06-26 15:06 | P.PN ---
Subjective Principal diagnosis: Triple-vessel coronary artery disease and left ventricular dysfunction. 65-year-old male patient, a chronic smoker with a positive family history of coronary artery disease, presented with episodes of chest pain. Further investigation revealed an abnormal EKG and following that the patient came into the hospital where he had a cardiac catheterization that showed triple-vessel disease with subtotal occluded mid LAD and severely impaired LV function with an ejection fraction of 35%. The patient is being considered for coronary artery bypass surgery. Echocardiogram was also done that showed an ejection fraction of 35-40%. There was evidence of segmental wall motion abnormalities. Aortic root was dilated at 3.8 cm in size. Clinically the patient reports to be in a good state of health. He drinks alcohol every night around few glasses of liquor. No history of any delirium tremens. Denies being an alcoholic. 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 He has a chronic congested cough. No silica sputum production. No pleurisy. No hemoptysis. He reports that he was in a good state of health and he was able to walk long distances incline couple of flights of stairs prior to this event without any major difficulties. No history of any DVT or pulmonary embolism. No swelling in lower extremities. Chest x-ray from this admission showed evidence of COPD. A bedside spirometry has not been done yet. No history of any childhood asthma. No hospitalization for any respiratory difficulties. Based on room air pulse ox is ranging between 91-93%. On 06/24/2016, the patient is stable. No significant chest pain. No shortness of breath. The patient was placed on systemic steroids. The FEV1 measurement was of a 86% of predicted. The patient is scheduled to undergo his coronary bypass surgery more afternoon. Hemodynamically stable. No other significant events otherwise. On 06/25/2016, patient is doing well, patient is being considered for CABG today. Presently no cough no wheezing no shortness of breath, and the patient is hemodynamically stable. On 06/26/2016, patient is postoperative day #1, patient had a quadruple coronary artery bypass grafting postoperative course was relatively uneventful, patient was extubated last night, and he continues to do relatively well. Patient is currently sitting up in the chair, and his pain seems to be fairly well controlled. He denies any shortness of breath no cough no wheezing. Compliant to very well with incentive spirometry. Hemoglobin is 10.3. Renal profile is normal. Objective - Vital Signs Vital signs: Vital Signs Temp 98.1 F 06/26/16 12:00 Pulse 89 06/26/16 13:15 Resp 23 06/26/16 13:15 BP 85/55 06/26/16 11:15 Pulse Ox 98 06/26/16 13:15 Intake & Output 06/25/16 06/26/16 06/26/16 18:59 06:59 18:59 Intake Total 154.443 4718.697 2005.692 Output Total 6948 708 Balance 242.255 -4090.303 1297.692 Weight 86.3 kg Intake: IV 100 721 427 0.9 100 CO/CI 160 20 LR 475 350 PRESSURE BAGS 86 57 Intake, IV Titration 675.780 8898.697 1128.692 Amount ACETAMINOPHEN IV (For NPO 200 100 ) 1,000 mg In Empty Bag 1 bag @ 400 mls/hr IVPB Q6H [facility] Rx#:[id number] Albumin Human 5% 250 ml 500 In Empty Bag 1 bag @ 250 mls/hr IVPB Q1HR PRN Rx#: [id number] Albumin Human 5% 500 ml 500 In Empty Bag 1 bag @ 250 mls/hr IVPB ONCE PRN Rx#: [id number] Albumin Human 5% 500 ml 750 250 In Empty Bag 1 bag @ 250 mls/hr IVPB ONCE PRN Rx#: [id number] Clevidipine Butyrate 25 1.5 mg In Empty Bag 1 bag @ 1 MG/HR 2 mls/hr IV .Q24H [facility] Rx#:[id number] Heparin Sodium,Porcine/ 142.255 D5w Pmx 25,000 unit In Dextrose/Water 1 500ml. bag @ 12 UNITS/KG/HR 19. 05 mls/hr IV .Q24H [facility] Rx #:[id number] Insulin Regular 100 unit 4.447 9.270 In Sodium Chloride 0.9% 100 ml @ Per Protocol IV .Q0M [facility] Rx#:[id number] Nitroglycerin-D5w Pmx 50 4.5 0.50 mg In Dextrose/Water 1 250ml.bag @ 10 MCG/MIN 3 mls/hr IV .Q24H [facility] Rx#: [id number] Norepinephrine 4 mg In 254.953 268.922 Sodium Chloride 0.9% 250 ml @ Titrate IV .Q0M [facility] Rx#:[id number] Propofol 500 mg In Empty 21.297 Bag 1 bag @ Titrate IV . Q0M [facility] Rx#:[id number] ceFAZolin 2 gm In Sodium 100 Chloride 0.9% 100 ml @ 100 mls/hr IVPB Q8HR [facility] Rx#:[id number] Oral 300 450 Output: Chest Tube Drainage 758 203 Left Pleural 196 44 Mediastinal x 2 480 140 Right Pleural 82 19 Drainage 60 120 Left Upper Calf 35 70 Left Wrist 25 50 Urine 4130 385 Estimated Blood Loss 1999 Other: Voiding Method Urinal Indwelling Catheter Indwelling Catheter # Voids 1 ABP, PAP, CO, CI - Last Documented Arterial Blood Pressure 115/67 Pulmonary Artery Pressure 17/7 Cardiac Output 8.0 Cardiac Index 3.9 - Exam Physical Exam: Revealed a 65-year-old in no distress. On nasal cannula, off mechanical ventilation. HEENT:[Neck is supple.] [No neck masses.] [No thyromegaly.] [No JVD.] Chest: [Minimal crackles at the bases, no rhonchi, no wheezes..] Cardiac Exam: [Normal S1 and S2, no S3 gallop, no murmur.] Abdomen: [Soft, nontender, no megaly, no rebound, no guarding, normal bowel sounds.] Extremities: [No clubbing, no edema, no cyanosis.] Neurological Exam: [No focal neurologic deficit.] - Labs CBC & Chem 7: 06/26/16 04:10 06/26/16 04:10 Labs: Abnormal Lab Results - Last 24 Hours (Table) 06/24/16 06/25/16 06/25/16 Range/Units 13:10 15:26 17:08 RBC (4.30-5.90) m/uL Hgb (13.0-17.5) gm/dL Hct (39.0-53.0) % MCV (80.0-100.0) fL Plt Count (150-450) k/uL Lymphocytes # (1.0-4.8) k/uL PT (9.0-12.0) sec APTT (22.0-30.0) sec ABG pH (7.35-7.45) ABG pCO2 (35-45) mmHg ABG pO2 274 H (83-108) mmHg ABG HCO3 (21-25) mmol/L ABG Total CO2 26 H (19-24) mmol/L ABG O2 Saturation 99.9 H (94-97) % ABG Hematocrit (34.0-46.0) % ABG Potassium (3.4-4.5) mmol/L Glucose (74-99) mg/dL POC Glucose (mg/dL) 102 H (75-99) mg/dL Calcium (8.4-10.2) mg/dL Magnesium (1.6-2.3) mg/dL Alkaline Phosphatase (38-126) U/L Total Protein (6.3-8.2) g/dL Albumin (3.5-5.0) g/dL Arterial Blood Potassium (3.4-4.5) mmol/L Crossmatch See Detail 06/25/16 06/25/16 06/25/16 Range/Units 17:11 18:03 18:05 RBC (4.30-5.90) m/uL Hgb (13.0-17.5) gm/dL Hct (39.0-53.0) % MCV (80.0-100.0) fL Plt Count (150-450) k/uL Lymphocytes # (1.0-4.8) k/uL PT (9.0-12.0) sec APTT (22.0-30.0) sec ABG pH 7.32 L (7.35-7.45) ABG pCO2 52 H (35-45) mmHg ABG pO2 66 L 319 H (83-108) mmHg ABG HCO3 26 H 26 H (21-25) mmol/L ABG Total CO2 28 H 27 H (19-24) mmol/L ABG O2 Saturation 90.8 L 99.9 H (94-97) % ABG Hematocrit (34.0-46.0) % ABG Potassium 4.7 H (3.4-4.5) mmol/L Glucose (74-99) mg/dL POC Glucose (mg/dL) 162 H (75-99) mg/dL Calcium (8.4-10.2) mg/dL Magnesium (1.6-2.3) mg/dL Alkaline Phosphatase (38-126) U/L Total Protein (6.3-8.2) g/dL Albumin (3.5-5.0) g/dL Arterial Blood Potassium 4.7 H (3.4-4.5) mmol/L Crossmatch 06/25/16 06/25/16 06/25/16 Range/Units 18:32 18:34 19:02 RBC (4.30-5.90) m/uL Hgb (13.0-17.5) gm/dL Hct (39.0-53.0) % MCV (80.0-100.0) fL Plt Count (150-450) k/uL Lymphocytes # (1.0-4.8) k/uL PT (9.0-12.0) sec APTT (22.0-30.0) sec ABG pH (7.35-7.45) ABG pCO2 (35-45) mmHg ABG pO2 245 H (83-108) mmHg ABG HCO3 (21-25) mmol/L ABG Total CO2 27 H (19-24) mmol/L ABG O2 Saturation 99.8 H (94-97) % ABG Hematocrit (34.0-46.0) % ABG Potassium 5.2 H (3.4-4.5) mmol/L Glucose (74-99) mg/dL POC Glucose (mg/dL) 186 H 171 H (75-99) mg/dL Calcium (8.4-10.2) mg/dL Magnesium (1.6-2.3) mg/dL Alkaline Phosphatase (38-126) U/L Total Protein (6.3-8.2) g/dL Albumin (3.5-5.0) g/dL Arterial Blood Potassium 5.2 H (3.4-4.5) mmol/L Crossmatch 06/25/16 06/25/16 06/25/16 Range/Units 19:05 20:23 20:26 RBC (4.30-5.90) m/uL Hgb (13.0-17.5) gm/dL Hct (39.0-53.0) % MCV (80.0-100.0) fL Plt Count (150-450) k/uL Lymphocytes # (1.0-4.8) k/uL PT (9.0-12.0) sec APTT (22.0-30.0) sec ABG pH (7.35-7.45) ABG pCO2 33 L (35-45) mmHg ABG pO2 325 H 185 H (83-108) mmHg ABG HCO3 20 L (21-25) mmol/L ABG Total CO2 27 H (19-24) mmol/L ABG O2 Saturation 99.9 H 99.7 H (94-97) % ABG Hematocrit 30 L (34.0-46.0) % ABG Potassium 5.1 H 3.0 L* (3.4-4.5) mmol/L Glucose (74-99) mg/dL POC Glucose (mg/dL) 114 H (75-99) mg/dL Calcium (8.4-10.2) mg/dL Magnesium (1.6-2.3) mg/dL Alkaline Phosphatase (38-126) U/L Total Protein (6.3-8.2) g/dL Albumin (3.5-5.0) g/dL Arterial Blood Potassium 5.1 H 3.0 L* (3.4-4.5) mmol/L Crossmatch 06/25/16 06/25/16 06/25/16 Range/Units 20:31 21:40 21:40 RBC 3.19 L (4.30-5.90) m/uL Hgb 11.0 L (13.0-17.5) gm/dL Hct 32.6 L (39.0-53.0) % MCV 102.3 H (80.0-100.0) fL Plt Count 123 L (150-450) k/uL Lymphocytes # (1.0-4.8) k/uL PT (9.0-12.0) sec APTT (22.0-30.0) sec ABG pH 7.34 L (7.35-7.45) ABG pCO2 (35-45) mmHg ABG pO2 47 L (83-108) mmHg ABG HCO3 (21-25) mmol/L ABG Total CO2 25 H (19-24) mmol/L ABG O2 Saturation 80.4 L (94-97) % ABG Hematocrit 32 L (34.0-46.0) % ABG Potassium (3.4-4.5) mmol/L Glucose (74-99) mg/dL POC Glucose (mg/dL) (75-99) mg/dL Calcium 7.7 L (8.4-10.2) mg/dL Magnesium 2.4 H (1.6-2.3) mg/dL Alkaline Phosphatase 29 L (38-126) U/L Total Protein 5.0 L (6.3-8.2) g/dL Albumin 3.1 L (3.5-5.0) g/dL Arterial Blood Potassium (3.4-4.5) mmol/L Crossmatch 06/25/16 06/25/16 06/25/16 Range/Units 21:40 22:01 22:01 RBC (4.30-5.90) m/uL Hgb (13.0-17.5) gm/dL Hct (39.0-53.0) % MCV (80.0-100.0) fL Plt Count (150-450) k/uL Lymphocytes # (1.0-4.8) k/uL PT 12.1 H (9.0-12.0) sec APTT 32.6 H (22.0-30.0) sec ABG pH (7.35-7.45) ABG pCO2 (35-45) mmHg ABG pO2 (83-108) mmHg ABG HCO3 (21-25) mmol/L ABG Total CO2 25 H (19-24) mmol/L ABG O2 Saturation 98.0 H (94-97) % ABG Hematocrit (34.0-46.0) % ABG Potassium (3.4-4.5) mmol/L Glucose (74-99) mg/dL POC Glucose (mg/dL) 101 H (75-99) mg/dL Calcium (8.4-10.2) mg/dL Magnesium (1.6-2.3) mg/dL Alkaline Phosphatase (38-126) U/L Total Protein (6.3-8.2) g/dL Albumin (3.5-5.0) g/dL Arterial Blood Potassium (3.4-4.5) mmol/L Crossmatch 06/25/16 06/26/16 06/26/16 Range/Units 23:16 00:10 00:10 RBC 2.88 L (4.30-5.90) m/uL Hgb 9.8 L (13.0-17.5) gm/dL Hct 29.6 L (39.0-53.0) % MCV 102.7 H (80.0-100.0) fL Plt Count 136 L (150-450) k/uL Lymphocytes # 0.9 L (1.0-4.8) k/uL PT (9.0-12.0) sec APTT (22.0-30.0) sec ABG pH (7.35-7.45) ABG pCO2 (35-45) mmHg ABG pO2 (83-108) mmHg ABG HCO3 (21-25) mmol/L ABG Total CO2 (19-24) mmol/L ABG O2 Saturation (94-97) % ABG Hematocrit (34.0-46.0) % ABG Potassium (3.4-4.5) mmol/L Glucose 126 H (74-99) mg/dL POC Glucose (mg/dL) 123 H (75-99) mg/dL Calcium 7.5 L (8.4-10.2) mg/dL Magnesium (1.6-2.3) mg/dL Alkaline Phosphatase 29 L (38-126) U/L Total Protein 5.0 L (6.3-8.2) g/dL Albumin 3.2 L (3.5-5.0) g/dL Arterial Blood Potassium (3.4-4.5) mmol/L Crossmatch 06/26/16 06/26/16 06/26/16 Range/Units 00:12 01:13 02:01 RBC (4.30-5.90) m/uL Hgb (13.0-17.5) gm/dL Hct (39.0-53.0) % MCV (80.0-100.0) fL Plt Count (150-450) k/uL Lymphocytes # (1.0-4.8) k/uL PT (9.0-12.0) sec APTT (22.0-30.0) sec ABG pH (7.35-7.45) ABG pCO2 (35-45) mmHg ABG pO2 (83-108) mmHg ABG HCO3 (21-25) mmol/L ABG Total CO2 (19-24) mmol/L ABG O2 Saturation (94-97) % ABG Hematocrit (34.0-46.0) % ABG Potassium (3.4-4.5) mmol/L Glucose (74-99) mg/dL POC Glucose (mg/dL) 135 H 133 H 136 H (75-99) mg/dL Calcium (8.4-10.2) mg/dL Magnesium (1.6-2.3) mg/dL Alkaline Phosphatase (38-126) U/L Total Protein (6.3-8.2) g/dL Albumin (3.5-5.0) g/dL Arterial Blood Potassium (3.4-4.5) mmol/L Crossmatch 06/26/16 06/26/16 06/26/16 Range/Units 02:30 03:07 04:10 RBC 3.06 L (4.30-5.90) m/uL Hgb 10.3 L (13.0-17.5) gm/dL Hct 31.3 L (39.0-53.0) % MCV 102.2 H (80.0-100.0) fL Plt Count (150-450) k/uL Lymphocytes # 0.6 L (1.0-4.8) k/uL PT (9.0-12.0) sec APTT (22.0-30.0) sec ABG pH (7.35-7.45) ABG pCO2 (35-45) mmHg ABG pO2 (83-108) mmHg ABG HCO3 (21-25) mmol/L ABG Total CO2 27 H (19-24) mmol/L ABG O2 Saturation 98.0 H (94-97) % ABG Hematocrit (34.0-46.0) % ABG Potassium (3.4-4.5) mmol/L Glucose (74-99) mg/dL POC Glucose (mg/dL) 150 H (75-99) mg/dL Calcium (8.4-10.2) mg/dL Magnesium (1.6-2.3) mg/dL Alkaline Phosphatase (38-126) U/L Total Protein (6.3-8.2) g/dL Albumin (3.5-5.0) g/dL Arterial Blood Potassium (3.4-4.5) mmol/L Crossmatch 06/26/16 06/26/16 06/26/16 Range/Units 04:10 04:12 05:08 RBC (4.30-5.90) m/uL Hgb (13.0-17.5) gm/dL Hct (39.0-53.0) % MCV (80.0-100.0) fL Plt Count (150-450) k/uL Lymphocytes # (1.0-4.8) k/uL PT (9.0-12.0) sec APTT (22.0-30.0) sec ABG pH (7.35-7.45) ABG pCO2 (35-45) mmHg ABG pO2 (83-108) mmHg ABG HCO3 (21-25) mmol/L ABG Total CO2 (19-24) mmol/L ABG O2 Saturation (94-97) % ABG Hematocrit (34.0-46.0) % ABG Potassium (3.4-4.5) mmol/L Glucose 118 H (74-99) mg/dL POC Glucose (mg/dL) 135 H 135 H (75-99) mg/dL Calcium 7.7 L (8.4-10.2) mg/dL Magnesium (1.6-2.3) mg/dL Alkaline Phosphatase 30 L (38-126) U/L Total Protein 5.4 L (6.3-8.2) g/dL Albumin 3.4 L (3.5-5.0) g/dL Arterial Blood Potassium (3.4-4.5) mmol/L Crossmatch 06/26/16 06/26/16 06/26/16 Range/Units 06:17 07:10 08:15 RBC (4.30-5.90) m/uL Hgb (13.0-17.5) gm/dL Hct (39.0-53.0) % MCV (80.0-100.0) fL Plt Count (150-450) k/uL Lymphocytes # (1.0-4.8) k/uL PT (9.0-12.0) sec APTT (22.0-30.0) sec ABG pH (7.35-7.45) ABG pCO2 (35-45) mmHg ABG pO2 (83-108) mmHg ABG HCO3 (21-25) mmol/L ABG Total CO2 (19-24) mmol/L ABG O2 Saturation (94-97) % ABG Hematocrit (34.0-46.0) % ABG Potassium (3.4-4.5) mmol/L Glucose (74-99) mg/dL POC Glucose (mg/dL) 136 H 136 H 140 H (75-99) mg/dL Calcium (8.4-10.2) mg/dL Magnesium (1.6-2.3) mg/dL Alkaline Phosphatase (38-126) U/L Total Protein (6.3-8.2) g/dL Albumin (3.5-5.0) g/dL Arterial Blood Potassium (3.4-4.5) mmol/L Crossmatch 06/26/16 06/26/16 06/26/16 Range/Units 09:07 10:05 10:57 RBC (4.30-5.90) m/uL Hgb (13.0-17.5) gm/dL Hct (39.0-53.0) % MCV (80.0-100.0) fL Plt Count (150-450) k/uL Lymphocytes # (1.0-4.8) k/uL PT (9.0-12.0) sec APTT (22.0-30.0) sec ABG pH (7.35-7.45) ABG pCO2 (35-45) mmHg ABG pO2 (83-108) mmHg ABG HCO3 (21-25) mmol/L ABG Total CO2 (19-24) mmol/L ABG O2 Saturation (94-97) % ABG Hematocrit (34.0-46.0) % ABG Potassium (3.4-4.5) mmol/L Glucose (74-99) mg/dL POC Glucose (mg/dL) 155 H 142 H 125 H (75-99) mg/dL Calcium (8.4-10.2) mg/dL Magnesium (1.6-2.3) mg/dL Alkaline Phosphatase (38-126) U/L Total Protein (6.3-8.2) g/dL Albumin (3.5-5.0) g/dL Arterial Blood Potassium (3.4-4.5) mmol/L Crossmatch 06/26/16 06/26/16 06/26/16 Range/Units 11:57 13:17 14:28 RBC (4.30-5.90) m/uL Hgb (13.0-17.5) gm/dL Hct (39.0-53.0) % MCV (80.0-100.0) fL Plt Count (150-450) k/uL Lymphocytes # (1.0-4.8) k/uL PT (9.0-12.0) sec APTT (22.0-30.0) sec ABG pH (7.35-7.45) ABG pCO2 (35-45) mmHg ABG pO2 (83-108) mmHg ABG HCO3 (21-25) mmol/L ABG Total CO2 (19-24) mmol/L ABG O2 Saturation (94-97) % ABG Hematocrit (34.0-46.0) % ABG Potassium (3.4-4.5) mmol/L Glucose (74-99) mg/dL POC Glucose (mg/dL) 124 H 106 H 115 H (75-99) mg/dL Calcium (8.4-10.2) mg/dL Magnesium (1.6-2.3) mg/dL Alkaline Phosphatase (38-126) U/L Total Protein (6.3-8.2) g/dL Albumin (3.5-5.0) g/dL Arterial Blood Potassium (3.4-4.5) mmol/L Crossmatch Microbiology - Last 24 Hours (Table) 06/24/16 11:48 Urine Culture - Final Urine,Voided Assessment and Plan Plan: Impression: Status post CABG, postoperative day #1. Acute presentation of myocardial infarction initially, Acute left ventricular dysfunction and ischemic cardiomyopathy History of underlying COPD severity of which is [id number]. History of tobacco dependence syndrome. Postoperative atelectasis Recommendation: Continue present treatment plan including usual cardiac meds Plavix statin and aspirin, bronchodilators, incentive spirometry, I went ahead and discontinued his IV Solu-Medrol. We'll continue to follow. Time with Patient: Less than 30
[2016-06-26] MEDS ORDERED: DOCUSATE 100 MG CAP PO PRN (15:16)
[2016-06-26] MEDS: KETOROLAC 30 MG/ML 1 ML VIAL IVP PRN (15:47)
[2016-06-26 17:16] LABS: Glucose,Whole Blood 110 mg/dL (75-99)
[2016-06-26] MEDS ORDERED: MAGNESIUM HYDROXIDE 2,400 MG/10 ML CUP PO PRN (17:50)
[2016-06-26] MEDS ORDERED: BISACODYL 10 MG SUPP RECTAL PRN (17:50)
[2016-06-26] MEDS ORDERED: IPRATROPIUM-ALBUTEROL 3 ML NEB INHALATION PRN (17:50)
[2016-06-26 18:13] LABS: Glucose,Whole Blood 109 mg/dL (75-99)
[2016-06-26 19:01] LABS: Glucose,Whole Blood 148 mg/dL (75-99)
[2016-06-26 20:03] LABS: Glucose,Whole Blood 139 mg/dL (75-99)
[2016-06-26] MEDS: SENNOSIDES-DOCUSATE SODIUM 1 EACH TAB PO SCH (20:12)
[2016-06-26 20:58] LABS: Glucose,Whole Blood 142 mg/dL (75-99)
[2016-06-26] MEDS: HYDROcodone/APAP 5-325MG 1 EACH TAB PO PRN (22:01)
[2016-06-26 22:06] LABS: Glucose,Whole Blood 112 mg/dL (75-99)
[2016-06-26 23:15] LABS: Glucose,Whole Blood 84 mg/dL (75-99)
[2016-06-27 01:12] LABS: Glucose,Whole Blood 106 mg/dL (75-99)
[2016-06-27 02:11] LABS: Glucose,Whole Blood 106 mg/dL (75-99)
[2016-06-27 03:07] LABS: Glucose,Whole Blood 109 mg/dL (75-99)
[2016-06-27] MEDS: HYDROcodone/APAP 5-325MG 1 EACH TAB PO PRN ×4 (03:48→21:29)
[2016-06-27] MEDS: NOREPINEPHRINE 4 MG in SODIUM CHLORIDE 0.9% 250 ML IV SCH (03:48)
[2016-06-27 03:58] LABS: Glucose,Whole Blood 118 mg/dL (75-99)
[2016-06-27 04:08] LABS: Basophils % (A) 0 %; CH 33.8; CHCM 33.5; Eosinophils # (A) 0.2 k/uL (0-0.7); Eosinophils % (A) 3 %; HCT 24.3 % (39.0-53.0); HDW 2.33; Luc # (Auto) 0.12; Luc % (Auto) 2; Lymphocytes # (A) 1.3 k/uL (1.0-4.8); Lymphocytes % (A) 21 %; MCH 33.5 pg (25.0-35.0); MCHC 33.1 g/dL (31.0-37.0); MCV 101.3 fL (80.0-100.0); Macrocytosis Slight; Mean Platelet Volume 8.3; Monocytes # (A) 0.5 k/uL (0-1.0); Monocytes % (A) 7 %; Neutrophils # (A) 4.2 k/uL (1.3-7.7); Neutrophils % (A) 67 %; RDW 13.4 % (11.5-15.5); WBC 6.3 k/uL (3.8-10.6)
[2016-06-27 04:14] LABS: INR 1.1 (<1.1); Prothrombin Time 10.7 sec (9.0-12.0)
[2016-06-27] MEDS ORDERED: DEXTROSE 5% IN WATER 100 ML with AMIODARONE 150 MG IV ONE ×2 (04:21→08:40)
[2016-06-27] MEDS ORDERED: FUROSEMIDE 10 MG/ML 2 ML VIAL IV ONE (04:22)
[2016-06-27 04:23] LABS: ALT 30 U/L (21-72); AST 40 U/L (17-59); Alkaline Phosphatase 32 U/L (38-126); Anion Gap 9 mmol/L; Blood Urea Nitrogen 14 mg/dL (9-20); Calcium 8.1 mg/dL (8.4-10.2); Carbon Dioxide 23 mmol/L (22-30); Chloride 104 mmol/L (98-107); Glucose 104 mg/dL (74-99); Ionized Calcium 4.7 mg/dL (4.5-5.3); Magnesium 2.1 mg/dL (1.6-2.3); Non-African American GFR(MDRD) >60 (>60 ml/min/1.73 sqM); Sodium 136 mmol/L (137-145); Total Bilirubin 0.6 mg/dL (0.2-1.3); Total Protein 5.3 g/dL (6.3-8.2)
[2016-06-27 06:01] LABS: Glucose,Whole Blood 114 mg/dL (75-99)
[2016-06-27] MEDS: AMIODARONE 450 MG in DEXTROSE 5% IN WATER 250 ML IV SCH ×6 (06:21→17:21)
--- NOTE | 2016-06-27 07:22 | XR ---
EXAMINATION TYPE: XR chest 1V portable DATE OF EXAM: 06/27/2016 6:49 AM Comparison: 06/26/2016 Clinical History: 65-year-old male Operative Cardiac Surgery Findings: Median sternotomy wires are present with post-CABG clips in the mediastinum. Mediastinal drains are p resent. [place] catheter removed with right IJ sheath remaining in place. Bilateral pleural drains are present. Heart remains mildly enlarged. Overall stable appearance to the pulmonary vasculature wh ich is mildly prominent. Some patchy bibasilar opacities persist. No appreciable pneumothorax. No sig nificant pleural effusion. Healed fracture deformity left clavicle. Impression: 1. Similar mild pulmonary vascular congestion. 2. Some patchy bibasilar areas of atelectasis persist. No appreciable pneumothorax.
[2016-06-27] MEDS: IPRATROPIUM-ALBUTEROL 3 ML NEB INHALATION SCH (07:46)
[2016-06-27 08:00] LABS: Glucose,Whole Blood 132 mg/dL (75-99)
[2016-06-27] MEDS: INSULIN REGULAR 100 UNIT in SODIUM CHLORIDE 0.9% 100 ML IV SCH (08:27)
[2016-06-27] MEDS: VITAMIN A 10,000 UNIT CAPSULE PO SCH (08:31)
[2016-06-27] MEDS: HEPARIN SODIUM,PORCINE 5,000 UNIT/ML 1 ML VIAL SQ SCH ×2 (08:31→17:11)
[2016-06-27] MEDS: THIAMINE 100 MG/ML 2 ML VIAL IVP SCH (08:31)
[2016-06-27] MEDS: ASPIRIN 325 MG TAB PO SCH (08:31)
[2016-06-27] MEDS: CLOPIDOGREL 75 MG TAB PO SCH (08:31)
[2016-06-27] MEDS: PANTOPRAZOLE 40 MG/10 ML VIAL IVP SCH (08:31)
[2016-06-27] MEDS: ATORVASTATIN 40 MG TAB PO SCH (08:32)
[2016-06-27] MEDS: MUPIROCIN 2% OINT 22 GM TUBE NASAL SCH ×2 (08:32→20:43)
[2016-06-27 08:56] LABS: Glucose,Whole Blood 111 mg/dL (75-99)
[2016-06-27] MEDS ORDERED: METOPROLOL TARTRATE 25 MG TAB PO SCH (09:00)
--- NOTE | 2016-06-27 09:09 | PN ---
Mr. Mccormack is a 65-year-old male who presented with myocardial infarction, underwent cardiac catheterization, was found to have severe triple vessel coronary artery disease, underwent coronary artery bypass grafting. He has been having episode of paroxysmal atrial fibrillation. He feels the palpitations. His breathing is stable. He is denying any symptoms of anginal symptoms. He has soreness in the chest. His breathing is unchanged. He denies any dizziness. He has been started on the IV amiodarone drip. Otherwise, he is on aspirin, Lipitor 40 mg daily, Plavix 75 mg daily. PHYSICAL EXAMINATION: Blood pressure running in the 130s with the heart in the 120s. LUNGS: With a few crackles at the bases. HEART: Irregular, irregular. S1, S2, no S3, with no rub. ABDOMEN: Soft, nontender. EXTREMITIES: No edema. IMPRESSION: 1. Status post coronary artery bypass grafting. 2. Paroxysmal atrial fibrillation. 3. Prior history of cardiomyopathy. 4. Hyperlipidemia. 5. Prior history of smoking. RECOMMENDATION: I will add to his regimen beta linda, continue on the amiodarone. If he has persistent atrial fibrillation in the next 24 hours, the patient needs to be started on anticoagulation.
[2016-06-27 10:06] LABS: Glucose,Whole Blood 139 mg/dL (75-99)
[2016-06-27] MEDS: methylPREDNISolone SOD SUCCI 40 MG/ML 1 ML VIAL IV SCH ×2 (10:12→17:11)
[2016-06-27] MEDS: LACTATED RINGERS 1,000 ML IV SCH ×3 (10:12→20:32)
--- NOTE | 2016-06-27 10:30 | P.PN ---
Subjective Principal diagnosis: Triple vessel coronary artery disease, occluded collateralized left anterior descending artery with evidence of an old anterior wall myocardial infarction, moderate left ventricular dysfunction, tobacco abuse with chronic obstructive pulmonary disease, strong family history. POD #2 multiple arterial quadruple coronary artery bypass grafting using the left internal mammary artery to the left anterior descending artery, left radial artery from the aorta sequentially to the first obtuse marginal artery in a [id number] fashion. Then to the second obtuse marginal artery in an end- to-side fashion, reverse saphenous vein graft from the aorta to the posterior descending artery. Endoscopic harvesting of the left greater saphenous vein. Endoscopic harvesting of the left radial artery. Intraoperative transesophageal echocardiogram and epi-aortic scanning. Patient currently sitting up in the chair in no apparent distress. States he feels his heart palpating when he is in atrial fibrillation. Objective - Vital Signs Vital signs: Vital Signs Temp 98.2 F 06/27/16 04:00 Pulse 87 06/27/16 06:00 Resp 20 06/27/16 06:00 BP 108/60 06/27/16 01:00 Pulse Ox 96 06/27/16 06:00 Intake & Output 06/26/16 06/27/16 06/27/16 18:59 06:59 18:59 Intake Total 2986.649 876.358 56 Output Total 1390 1181 85 Balance 1596.649 -304.642 -29 Weight 85 kg Intake: IV 707 672 56 CO/CI 20 LR 600 600 50 PRESSURE BAGS 87 72 6 Intake, IV Titration 1529.649 204.358 Amount ACETAMINOPHEN IV (For NPO 100 ) 1,000 mg In Empty Bag 1 bag @ 400 mls/hr IVPB Q6H RACHEL Rx#:[id number] Albumin Human 5% 500 ml 750 In Empty Bag 1 bag @ 250 mls/hr IVPB ONCE PRN Rx#: [id number] Albumin Human 5% 500 ml 250 In Empty Bag 1 bag @ 250 mls/hr IVPB ONCE PRN Rx#: [id number] Insulin Regular 100 unit 9.270 5.569 In Sodium Chloride 0.9% 100 ml @ Per Protocol IV .Q0M RACHEL Rx#:[id number] Nitroglycerin-D5w Pmx 50 17.675 1.875 mg In Dextrose/Water 1 250ml.bag @ 10 MCG/MIN 3 mls/hr IV .Q24H RACHEL Rx#: [id number] Norepinephrine 4 mg In 302.704 196.914 Sodium Chloride 0.9% 250 ml @ Titrate IV .Q0M RACHEL Rx#:[id number] ceFAZolin 2 gm In Sodium 100 Chloride 0.9% 100 ml @ 100 mls/hr IVPB Q8HR RACHEL Rx#:[id number] Oral 750 Output: Chest Tube Drainage 370 336 35 Left Pleural 84 120 20 Mediastinal x 2 215 115 5 Right Pleural 71 101 10 Drainage 120 Left Upper Calf 70 Left Wrist 50 Urine 900 845 50 Other: Voiding Method Indwelling Catheter Indwelling Catheter # Voids 1 ABP, PAP, CO, CI - Last Documented Arterial Blood Pressure 111/43 Pulmonary Artery Pressure 17/7 Cardiac Output 8.0 Cardiac Index 3.9 - Constitutional General appearance: Present: cooperative, no acute distress - Respiratory Details: Lungs sounds diminished bilaterally. Respirations even, nonlabored. Able to achieve 1500 mL on his incentive spirometry. Left pleural chest tube to -20 cm wall suction, draining serosanguineous fluid, 140 mL in the last 12 hours 200 mL the last 24 hours. Mediastinal chest tube to -20 cm wall suction, draining serosanguineous fluid, 120 mL last 12 hours, 330 mL last 24 hours. Right pleural chest tube to -20 cm wall suction, draining serous and was fluid, 114 mL in the last 12 hours, 200 mL last 24 hours. No air leak present this morning - Cardiovascular Details: S1, S2. Tachycardia, irregular rhythm, atrial fibrillation with rapid ventricular response. Chest stable. Heart hugger in place with patient demonstrating appropriate use. Teds, SCDs present. Left lower extremity edema present. - Gastrointestinal Gastrointestinal Comment(s): Abdomen soft, nontender, nondistended. Hypoactive bowel sounds present. Positive flatus, no BM since surgery. Tolerating diet. - Genitourinary Genitourinary Comment(s): Dawn present draining clear, yellow urine. Approximately 60 mL/h. - Integumentary Integumentary Comment(s): Anterior chest incision covered with dry intact silver dressing. Left radial graft site well approximated. Left lower extremity EVH site well approximated. - Musculoskeletal Musculoskeletal: Present: gait normal - Psychiatric Psychiatric: Present: A&O x's 3, appropriate affect, intact judgment & insight - Allied health notes Allied health notes reviewed: nursing - Labs CBC & Chem 7: 06/27/16 04:00 06/27/16 04:00 Labs: Abnormal Lab Results - Last 24 Hours (Table) 06/25/16 06/25/16 06/25/16 Range/Units 15:26 17:11 18:05 RBC (4.30-5.90) m/uL Hgb (13.0-17.5) gm/dL Hct (39.0-53.0) % MCV (80.0-100.0) fL Plt Count (150-450) k/uL ABG pH 7.32 L (7.35-7.45) ABG pCO2 52 H (35-45) mmHg ABG pO2 274 H 66 L 319 H (83-108) mmHg ABG HCO3 26 H 26 H (21-25) mmol/L ABG Total CO2 26 H 28 H 27 H (19-24) mmol/L ABG O2 Saturation 99.9 H 90.8 L 99.9 H (94-97) % ABG Hematocrit (34.0-46.0) % ABG Potassium 4.7 H (3.4-4.5) mmol/L Sodium (137-145) mmol/L Creatinine (0.66-1.25) mg/dL Glucose (74-99) mg/dL POC Glucose (mg/dL) (75-99) mg/dL Calcium (8.4-10.2) mg/dL Alkaline Phosphatase (38-126) U/L Total Protein (6.3-8.2) g/dL Albumin (3.5-5.0) g/dL Arterial Blood Potassium 4.7 H (3.4-4.5) mmol/L 06/25/16 06/25/16 06/25/16 Range/Units 18:34 19:05 20:26 RBC (4.30-5.90) m/uL Hgb (13.0-17.5) gm/dL Hct (39.0-53.0) % MCV (80.0-100.0) fL Plt Count (150-450) k/uL ABG pH (7.35-7.45) ABG pCO2 33 L (35-45) mmHg ABG pO2 245 H 325 H 185 H (83-108) mmHg ABG HCO3 20 L (21-25) mmol/L ABG Total CO2 27 H 27 H (19-24) mmol/L ABG O2 Saturation 99.8 H 99.9 H 99.7 H (94-97) % ABG Hematocrit 30 L (34.0-46.0) % ABG Potassium 5.2 H 5.1 H 3.0 L* (3.4-4.5) mmol/L Sodium (137-145) mmol/L Creatinine (0.66-1.25) mg/dL Glucose (74-99) mg/dL POC Glucose (mg/dL) (75-99) mg/dL Calcium (8.4-10.2) mg/dL Alkaline Phosphatase (38-126) U/L Total Protein (6.3-8.2) g/dL Albumin (3.5-5.0) g/dL Arterial Blood Potassium 5.2 H 5.1 H 3.0 L* (3.4-4.5) mmol/L 06/25/16 06/26/16 06/26/16 Range/Units 20:31 08:15 09:07 RBC (4.30-5.90) m/uL Hgb (13.0-17.5) gm/dL Hct (39.0-53.0) % MCV (80.0-100.0) fL Plt Count (150-450) k/uL ABG pH 7.34 L (7.35-7.45) ABG pCO2 (35-45) mmHg ABG pO2 47 L (83-108) mmHg ABG HCO3 (21-25) mmol/L ABG Total CO2 25 H (19-24) mmol/L ABG O2 Saturation 80.4 L (94-97) % ABG Hematocrit 32 L (34.0-46.0) % ABG Potassium (3.4-4.5) mmol/L Sodium (137-145) mmol/L Creatinine (0.66-1.25) mg/dL Glucose (74-99) mg/dL POC Glucose (mg/dL) 140 H 155 H (75-99) mg/dL Calcium (8.4-10.2) mg/dL Alkaline Phosphatase (38-126) U/L Total Protein (6.3-8.2) g/dL Albumin (3.5-5.0) g/dL Arterial Blood Potassium (3.4-4.5) mmol/L 06/26/16 06/26/16 06/26/16 Range/Units 10:05 10:57 11:57 RBC (4.30-5.90) m/uL Hgb (13.0-17.5) gm/dL Hct (39.0-53.0) % MCV (80.0-100.0) fL Plt Count (150-450) k/uL ABG pH (7.35-7.45) ABG pCO2 (35-45) mmHg ABG pO2 (83-108) mmHg ABG HCO3 (21-25) mmol/L ABG Total CO2 (19-24) mmol/L ABG O2 Saturation (94-97) % ABG Hematocrit (34.0-46.0) % ABG Potassium (3.4-4.5) mmol/L Sodium (137-145) mmol/L Creatinine (0.66-1.25) mg/dL Glucose (74-99) mg/dL POC Glucose (mg/dL) 142 H 125 H 124 H (75-99) mg/dL Calcium (8.4-10.2) mg/dL Alkaline Phosphatase (38-126) U/L Total Protein (6.3-8.2) g/dL Albumin (3.5-5.0) g/dL Arterial Blood Potassium (3.4-4.5) mmol/L 06/26/16 06/26/16 06/26/16 Range/Units 13:17 14:28 15:01 RBC (4.30-5.90) m/uL Hgb (13.0-17.5) gm/dL Hct (39.0-53.0) % MCV (80.0-100.0) fL Plt Count (150-450) k/uL ABG pH (7.35-7.45) ABG pCO2 (35-45) mmHg ABG pO2 (83-108) mmHg ABG HCO3 (21-25) mmol/L ABG Total CO2 (19-24) mmol/L ABG O2 Saturation (94-97) % ABG Hematocrit (34.0-46.0) % ABG Potassium (3.4-4.5) mmol/L Sodium (137-145) mmol/L Creatinine (0.66-1.25) mg/dL Glucose (74-99) mg/dL POC Glucose (mg/dL) 106 H 115 H 110 H (75-99) mg/dL Calcium (8.4-10.2) mg/dL Alkaline Phosphatase (38-126) U/L Total Protein (6.3-8.2) g/dL Albumin (3.5-5.0) g/dL Arterial Blood Potassium (3.4-4.5) mmol/L 06/26/16 06/26/16 06/26/16 Range/Units 17:15 18:12 18:59 RBC (4.30-5.90) m/uL Hgb (13.0-17.5) gm/dL Hct (39.0-53.0) % MCV (80.0-100.0) fL Plt Count (150-450) k/uL ABG pH (7.35-7.45) ABG pCO2 (35-45) mmHg ABG pO2 (83-108) mmHg ABG HCO3 (21-25) mmol/L ABG Total CO2 (19-24) mmol/L ABG O2 Saturation (94-97) % ABG Hematocrit (34.0-46.0) % ABG Potassium (3.4-4.5) mmol/L Sodium (137-145) mmol/L Creatinine (0.66-1.25) mg/dL Glucose (74-99) mg/dL POC Glucose (mg/dL) 110 H 109 H 148 H (75-99) mg/dL Calcium (8.4-10.2) mg/dL Alkaline Phosphatase (38-126) U/L Total Protein (6.3-8.2) g/dL Albumin (3.5-5.0) g/dL Arterial Blood Potassium (3.4-4.5) mmol/L 06/26/16 06/26/16 06/26/16 Range/Units 20:02 20:57 22:04 RBC (4.30-5.90) m/uL Hgb (13.0-17.5) gm/dL Hct (39.0-53.0) % MCV (80.0-100.0) fL Plt Count (150-450) k/uL ABG pH (7.35-7.45) ABG pCO2 (35-45) mmHg ABG pO2 (83-108) mmHg ABG HCO3 (21-25) mmol/L ABG Total CO2 (19-24) mmol/L ABG O2 Saturation (94-97) % ABG Hematocrit (34.0-46.0) % ABG Potassium (3.4-4.5) mmol/L Sodium (137-145) mmol/L Creatinine (0.66-1.25) mg/dL Glucose (74-99) mg/dL POC Glucose (mg/dL) 139 H 142 H 112 H (75-99) mg/dL Calcium (8.4-10.2) mg/dL Alkaline Phosphatase (38-126) U/L Total Protein (6.3-8.2) g/dL Albumin (3.5-5.0) g/dL Arterial Blood Potassium (3.4-4.5) mmol/L 06/27/16 06/27/16 06/27/16 Range/Units 01:10 02:10 03:06 RBC (4.30-5.90) m/uL Hgb (13.0-17.5) gm/dL Hct (39.0-53.0) % MCV (80.0-100.0) fL Plt Count (150-450) k/uL ABG pH (7.35-7.45) ABG pCO2 (35-45) mmHg ABG pO2 (83-108) mmHg ABG HCO3 (21-25) mmol/L ABG Total CO2 (19-24) mmol/L ABG O2 Saturation (94-97) % ABG Hematocrit (34.0-46.0) % ABG Potassium (3.4-4.5) mmol/L Sodium (137-145) mmol/L Creatinine (0.66-1.25) mg/dL Glucose (74-99) mg/dL POC Glucose (mg/dL) 106 H 106 H 109 H (75-99) mg/dL Calcium (8.4-10.2) mg/dL Alkaline Phosphatase (38-126) U/L Total Protein (6.3-8.2) g/dL Albumin (3.5-5.0) g/dL Arterial Blood Potassium (3.4-4.5) mmol/L 06/27/16 06/27/16 06/27/16 Range/Units 03:55 04:00 04:00 RBC 2.40 L (4.30-5.90) m/uL Hgb 8.0 L D (13.0-17.5) gm/dL Hct 24.3 L (39.0-53.0) % MCV 101.3 H (80.0-100.0) fL Plt Count 120 L (150-450) k/uL ABG pH (7.35-7.45) ABG pCO2 (35-45) mmHg ABG pO2 (83-108) mmHg ABG HCO3 (21-25) mmol/L ABG Total CO2 (19-24) mmol/L ABG O2 Saturation (94-97) % ABG Hematocrit (34.0-46.0) % ABG Potassium (3.4-4.5) mmol/L Sodium 136 L (137-145) mmol/L Creatinine 0.60 L (0.66-1.25) mg/dL Glucose 104 H (74-99) mg/dL POC Glucose (mg/dL) 118 H (75-99) mg/dL Calcium 8.1 L (8.4-10.2) mg/dL Alkaline Phosphatase 32 L (38-126) U/L Total Protein 5.3 L (6.3-8.2) g/dL Albumin 3.3 L (3.5-5.0) g/dL Arterial Blood Potassium (3.4-4.5) mmol/L 06/27/16 06/27/16 Range/Units 05:56 07:58 RBC (4.30-5.90) m/uL Hgb (13.0-17.5) gm/dL Hct (39.0-53.0) % MCV (80.0-100.0) fL Plt Count (150-450) k/uL ABG pH (7.35-7.45) ABG pCO2 (35-45) mmHg ABG pO2 (83-108) mmHg ABG HCO3 (21-25) mmol/L ABG Total CO2 (19-24) mmol/L ABG O2 Saturation (94-97) % ABG Hematocrit (34.0-46.0) % ABG Potassium (3.4-4.5) mmol/L Sodium (137-145) mmol/L Creatinine (0.66-1.25) mg/dL Glucose (74-99) mg/dL POC Glucose (mg/dL) 114 H 132 H (75-99) mg/dL Calcium (8.4-10.2) mg/dL Alkaline Phosphatase (38-126) U/L Total Protein (6.3-8.2) g/dL Albumin (3.5-5.0) g/dL Arterial Blood Potassium (3.4-4.5) mmol/L - Imaging and Cardiology Chest x-ray: report reviewed, image reviewed Assessment and Plan (1) Myocardial infarction Status: Acute (2) Coronary artery disease Status: Acute (3) Left ventricular dysfunction Status: Acute (4) Tobacco abuse Status: Acute (5) COPD (chronic obstructive pulmonary disease) Status: Acute Plan: 1. Continue aspirin, statin, Plavix. Will start low-dose beta linda this morning as patient is off levo. 2. Amiodarone drip started this morning. Continue for 24 hours, then will transition to oral amiodarone. 3. Will DC nitro drip, add Norvasc to prevent radial artery spasm. 4. Wean O2 as tolerated. Continue incentive spirometry use. 5. Increase activity as tolerated. PT to follow. 6. DC Dawn today. 7. Will DC mediastinal CT but will leave pleural chest tubes for 1 more day. 8. GI/DVT prophylaxis. 9. More recommendations as patient progresses. Time with Patient: Greater than 30
[2016-06-27] MEDS ORDERED: amLODIPine 10 MG TAB PO SCH (11:00)
[2016-06-27] MEDS: KETOROLAC 30 MG/ML 1 ML VIAL IVP PRN (11:11)
[2016-06-27 11:19] LABS: Glucose,Whole Blood 132 mg/dL (75-99)
--- NOTE | 2016-06-27 11:31 | P.VSCSTY ---
Greater Saphenous Vein Mapping This is bilateral lower extremity greater saphenous vein mapping. Date of service 06/23/2016 Vein quality and ultrasound appearance normal. Vein size groin right 10.7 x 10.8 groin left 10 x 9.7 High thigh right 8 x 7 high thigh left 5.8 x 5.9 Mid thigh right 6.0 x 5.1 mid thigh left 5.0 x 4.9 Above-knee right 5.6 x 5.0 above- knee left 3.8 x 3.7 Below knee right 4.0 x 4.2 below-knee left 3.6 x 3.5 Mid calf right 3.2 x 2.6 mid calf left 2.7 x 2.0 Ankle right 4.4 x 3.4 ankle left 4.1 x 3.0 Impression use will bilateral greater saphenous veins.
--- NOTE | 2016-06-27 11:32 | P.ARTDOP ---
Arterial Doppler LOWER EXTREMITY ARTERIAL DOPPLER: DATE OF SERVICE: 06/24/2016 Reason for study: Pre-CABG. Doppler waveforms: Multiphasic bilaterally throughout. Pulse volume recording: Normal configuration. Pressure gradients: None. Ankle-brachial indices: Greater than 1 bilaterally. Toe pressures: 105 on the right, 111 on the left Impression: Normal study.
--- NOTE | 2016-06-27 11:40 | P.PN ---
Subjective Date of service 06/26/2016. Progress note being dictated for Dr. Raymond. Interval history: This is a 65-year-old gentleman admitted with multivessel disease, status post CABG, postop day #1. Extubated early this morning. Currently on Levophed insulin and nitroglycerin drips. Recent cardiac output 7.9/cardiac index 3.3.Received 1500 MLS of albumin with another 500 MLS of albumin scheduled. Hemoglobin 10.3. Telemetry sinus rhythm. Chest x-ray reporting atelectasis. Objective - Vital Signs Vital signs: Vital Signs Temp 98.0 F 06/26/16 16:00 Pulse 88 06/26/16 16:30 Resp 17 06/26/16 16:30 BP 85/55 06/26/16 11:15 Pulse Ox 96 06/26/16 16:30 Intake & Output 06/25/16 06/26/16 06/26/16 18:59 06:59 18:59 Intake Total 387.538 4908.697 2521.045 Output Total 6948 1043 Balance 242.255 -4090.303 1478.045 Weight 86.3 kg Intake: IV 100 721 539 0.9 100 CO/CI 160 20 LR 475 450 PRESSURE BAGS 86 69 Intake, IV Titration 699.138 4500.697 1412.045 Amount ACETAMINOPHEN IV (For NPO 200 100 ) 1,000 mg In Empty Bag 1 bag @ 400 mls/hr IVPB Q6H [facility] Rx#:[id number] Albumin Human 5% 250 ml 500 In Empty Bag 1 bag @ 250 mls/hr IVPB Q1HR PRN Rx#: [id number] Albumin Human 5% 500 ml 750 In Empty Bag 1 bag @ 250 mls/hr IVPB ONCE PRN Rx#: [id number] Albumin Human 5% 500 ml 750 250 In Empty Bag 1 bag @ 250 mls/hr IVPB ONCE PRN Rx#: [id number] Clevidipine Butyrate 25 1.5 mg In Empty Bag 1 bag @ 1 MG/HR 2 mls/hr IV .Q24H [facility] Rx#:[id number] Heparin Sodium,Porcine/ 142.255 D5w Pmx 25,000 unit In Dextrose/Water 1 500ml. bag @ 12 UNITS/KG/HR 19. 05 mls/hr IV .Q24H [facility] Rx #:[id number] Insulin Regular 100 unit 4.447 9.270 In Sodium Chloride 0.9% 100 ml @ Per Protocol IV .Q0M [facility] Rx#:[id number] Nitroglycerin-D5w Pmx 50 4.5 13.025 mg In Dextrose/Water 1 250ml.bag @ 10 MCG/MIN 3 mls/hr IV .Q24H [facility] Rx#: [id number] Norepinephrine 4 mg In 254.953 289.750 Sodium Chloride 0.9% 250 ml @ Titrate IV .Q0M [facility] Rx#:[id number] Propofol 500 mg In Empty 21.297 Bag 1 bag @ Titrate IV . Q0M [facility] Rx#:[id number] ceFAZolin 2 gm In Sodium 100 Chloride 0.9% 100 ml @ 100 mls/hr IVPB Q8HR [facility] Rx#:[id number] Oral 300 570 Output: Chest Tube Drainage 758 288 Left Pleural 196 64 Mediastinal x 2 480 180 Right Pleural 82 44 Drainage 60 120 Left Upper Calf 35 70 Left Wrist 25 50 Urine 4130 635 Estimated Blood Loss 1999 Other: Voiding Method Urinal Indwelling Catheter Indwelling Catheter # Voids 1 ABP, PAP, CO, CI - Last Documented Arterial Blood Pressure 118/50 Pulmonary Artery Pressure 17/7 Cardiac Output 8.0 Cardiac Index 3.9 - Exam PHYSICAL EXAM: VITAL SIGNS: As above GENERAL: [Sitting up in bed, no acute distress] HEENT: [Pupils equal conjunctiva normal.] NECK: [Supple, no JVD, [place] present] RESPIRATORY EFFORT:[Normal] LUNGS: [Diminished, fine bibasilar crackles, no crackles, no wheezes, chest tubes present] CARDIOVASCULAR[regular S1 and S2, no murmurs rubs or gallops. Trace edema] GI: [Abdomen soft, nontender, nondistended, hypoactive bowel sounds.] PSYCH: [Alert and oriented -3, mood and affect normal.] NEURO: No focal deficits - Labs CBC & Chem 7: 06/27/16 04:00 06/27/16 04:00 Labs: Abnormal Lab Results - Last 24 Hours (Table) 06/24/16 06/25/16 06/25/16 Range/Units 13:10 15:26 17:11 RBC (4.30-5.90) m/uL Hgb (13.0-17.5) gm/dL Hct (39.0-53.0) % MCV (80.0-100.0) fL Plt Count (150-450) k/uL Lymphocytes # (1.0-4.8) k/uL PT (9.0-12.0) sec APTT (22.0-30.0) sec ABG pH 7.32 L (7.35-7.45) ABG pCO2 52 H (35-45) mmHg ABG pO2 274 H 66 L (83-108) mmHg ABG HCO3 26 H (21-25) mmol/L ABG Total CO2 26 H 28 H (19-24) mmol/L ABG O2 Saturation 99.9 H 90.8 L (94-97) % ABG Hematocrit (34.0-46.0) % ABG Potassium (3.4-4.5) mmol/L Glucose (74-99) mg/dL POC Glucose (mg/dL) (75-99) mg/dL Calcium (8.4-10.2) mg/dL Magnesium (1.6-2.3) mg/dL Alkaline Phosphatase (38-126) U/L Total Protein (6.3-8.2) g/dL Albumin (3.5-5.0) g/dL Arterial Blood Potassium (3.4-4.5) mmol/L Crossmatch See Detail 06/25/16 06/25/16 06/25/16 Range/Units 18:05 18:32 18:34 RBC (4.30-5.90) m/uL Hgb (13.0-17.5) gm/dL Hct (39.0-53.0) % MCV (80.0-100.0) fL Plt Count (150-450) k/uL Lymphocytes # (1.0-4.8) k/uL PT (9.0-12.0) sec APTT (22.0-30.0) sec ABG pH (7.35-7.45) ABG pCO2 (35-45) mmHg ABG pO2 319 H 245 H (83-108) mmHg ABG HCO3 26 H (21-25) mmol/L ABG Total CO2 27 H 27 H (19-24) mmol/L ABG O2 Saturation 99.9 H 99.8 H (94-97) % ABG Hematocrit (34.0-46.0) % ABG Potassium 4.7 H 5.2 H (3.4-4.5) mmol/L Glucose (74-99) mg/dL POC Glucose (mg/dL) 186 H (75-99) mg/dL Calcium (8.4-10.2) mg/dL Magnesium (1.6-2.3) mg/dL Alkaline Phosphatase (38-126) U/L Total Protein (6.3-8.2) g/dL Albumin (3.5-5.0) g/dL Arterial Blood Potassium 4.7 H 5.2 H (3.4-4.5) mmol/L Crossmatch 06/25/16 06/25/16 06/25/16 Range/Units 19:02 19:05 20:23 RBC (4.30-5.90) m/uL Hgb (13.0-17.5) gm/dL Hct (39.0-53.0) % MCV (80.0-100.0) fL Plt Count (150-450) k/uL Lymphocytes # (1.0-4.8) k/uL PT (9.0-12.0) sec APTT (22.0-30.0) sec ABG pH (7.35-7.45) ABG pCO2 (35-45) mmHg ABG pO2 325 H (83-108) mmHg ABG HCO3 (21-25) mmol/L ABG Total CO2 27 H (19-24) mmol/L ABG O2 Saturation 99.9 H (94-97) % ABG Hematocrit (34.0-46.0) % ABG Potassium 5.1 H (3.4-4.5) mmol/L Glucose (74-99) mg/dL POC Glucose (mg/dL) 171 H 114 H (75-99) mg/dL Calcium (8.4-10.2) mg/dL Magnesium (1.6-2.3) mg/dL Alkaline Phosphatase (38-126) U/L Total Protein (6.3-8.2) g/dL Albumin (3.5-5.0) g/dL Arterial Blood Potassium 5.1 H (3.4-4.5) mmol/L Crossmatch 06/25/16 06/25/16 06/25/16 Range/Units 20:26 20:31 21:40 RBC 3.19 L (4.30-5.90) m/uL Hgb 11.0 L (13.0-17.5) gm/dL Hct 32.6 L (39.0-53.0) % MCV 102.3 H (80.0-100.0) fL Plt Count 123 L (150-450) k/uL Lymphocytes # (1.0-4.8) k/uL PT (9.0-12.0) sec APTT (22.0-30.0) sec ABG pH 7.34 L (7.35-7.45) ABG pCO2 33 L (35-45) mmHg ABG pO2 185 H 47 L (83-108) mmHg ABG HCO3 20 L (21-25) mmol/L ABG Total CO2 25 H (19-24) mmol/L ABG O2 Saturation 99.7 H 80.4 L (94-97) % ABG Hematocrit 30 L 32 L (34.0-46.0) % ABG Potassium 3.0 L* (3.4-4.5) mmol/L Glucose (74-99) mg/dL POC Glucose (mg/dL) (75-99) mg/dL Calcium (8.4-10.2) mg/dL Magnesium (1.6-2.3) mg/dL Alkaline Phosphatase (38-126) U/L Total Protein (6.3-8.2) g/dL Albumin (3.5-5.0) g/dL Arterial Blood Potassium 3.0 L* (3.4-4.5) mmol/L Crossmatch 06/25/16 06/25/16 06/25/16 Range/Units 21:40 21:40 22:01 RBC (4.30-5.90) m/uL Hgb (13.0-17.5) gm/dL Hct (39.0-53.0) % MCV (80.0-100.0) fL Plt Count (150-450) k/uL Lymphocytes # (1.0-4.8) k/uL PT 12.1 H (9.0-12.0) sec APTT 32.6 H (22.0-30.0) sec ABG pH (7.35-7.45) ABG pCO2 (35-45) mmHg ABG pO2 (83-108) mmHg ABG HCO3 (21-25) mmol/L ABG Total CO2 25 H (19-24) mmol/L ABG O2 Saturation 98.0 H (94-97) % ABG Hematocrit (34.0-46.0) % ABG Potassium (3.4-4.5) mmol/L Glucose (74-99) mg/dL POC Glucose (mg/dL) (75-99) mg/dL Calcium 7.7 L (8.4-10.2) mg/dL Magnesium 2.4 H (1.6-2.3) mg/dL Alkaline Phosphatase 29 L (38-126) U/L Total Protein 5.0 L (6.3-8.2) g/dL Albumin 3.1 L (3.5-5.0) g/dL Arterial Blood Potassium (3.4-4.5) mmol/L Crossmatch 06/25/16 06/25/16 06/26/16 Range/Units 22:01 23:16 00:10 RBC 2.88 L (4.30-5.90) m/uL Hgb 9.8 L (13.0-17.5) gm/dL Hct 29.6 L (39.0-53.0) % MCV 102.7 H (80.0-100.0) fL Plt Count 136 L (150-450) k/uL Lymphocytes # 0.9 L (1.0-4.8) k/uL PT (9.0-12.0) sec APTT (22.0-30.0) sec ABG pH (7.35-7.45) ABG pCO2 (35-45) mmHg ABG pO2 (83-108) mmHg ABG HCO3 (21-25) mmol/L ABG Total CO2 (19-24) mmol/L ABG O2 Saturation (94-97) % ABG Hematocrit (34.0-46.0) % ABG Potassium (3.4-4.5) mmol/L Glucose (74-99) mg/dL POC Glucose (mg/dL) 101 H 123 H (75-99) mg/dL Calcium (8.4-10.2) mg/dL Magnesium (1.6-2.3) mg/dL Alkaline Phosphatase (38-126) U/L Total Protein (6.3-8.2) g/dL Albumin (3.5-5.0) g/dL Arterial Blood Potassium (3.4-4.5) mmol/L Crossmatch 06/26/16 06/26/16 06/26/16 Range/Units 00:10 00:12 01:13 RBC (4.30-5.90) m/uL Hgb (13.0-17.5) gm/dL Hct (39.0-53.0) % MCV (80.0-100.0) fL Plt Count (150-450) k/uL Lymphocytes # (1.0-4.8) k/uL PT (9.0-12.0) sec APTT (22.0-30.0) sec ABG pH (7.35-7.45) ABG pCO2 (35-45) mmHg ABG pO2 (83-108) mmHg ABG HCO3 (21-25) mmol/L ABG Total CO2 (19-24) mmol/L ABG O2 Saturation (94-97) % ABG Hematocrit (34.0-46.0) % ABG Potassium (3.4-4.5) mmol/L Glucose 126 H (74-99) mg/dL POC Glucose (mg/dL) 135 H 133 H (75-99) mg/dL Calcium 7.5 L (8.4-10.2) mg/dL Magnesium (1.6-2.3) mg/dL Alkaline Phosphatase 29 L (38-126) U/L Total Protein 5.0 L (6.3-8.2) g/dL Albumin 3.2 L (3.5-5.0) g/dL Arterial Blood Potassium (3.4-4.5) mmol/L Crossmatch 06/26/16 06/26/16 06/26/16 Range/Units 02:01 02:30 03:07 RBC (4.30-5.90) m/uL Hgb (13.0-17.5) gm/dL Hct (39.0-53.0) % MCV (80.0-100.0) fL Plt Count (150-450) k/uL Lymphocytes # (1.0-4.8) k/uL PT (9.0-12.0) sec APTT (22.0-30.0) sec ABG pH (7.35-7.45) ABG pCO2 (35-45) mmHg ABG pO2 (83-108) mmHg ABG HCO3 (21-25) mmol/L ABG Total CO2 27 H (19-24) mmol/L ABG O2 Saturation 98.0 H (94-97) % ABG Hematocrit (34.0-46.0) % ABG Potassium (3.4-4.5) mmol/L Glucose (74-99) mg/dL POC Glucose (mg/dL) 136 H 150 H (75-99) mg/dL Calcium (8.4-10.2) mg/dL Magnesium (1.6-2.3) mg/dL Alkaline Phosphatase (38-126) U/L Total Protein (6.3-8.2) g/dL Albumin (3.5-5.0) g/dL Arterial Blood Potassium (3.4-4.5) mmol/L Crossmatch 06/26/16 06/26/16 06/26/16 Range/Units 04:10 04:10 04:12 RBC 3.06 L (4.30-5.90) m/uL Hgb 10.3 L (13.0-17.5) gm/dL Hct 31.3 L (39.0-53.0) % MCV 102.2 H (80.0-100.0) fL Plt Count (150-450) k/uL Lymphocytes # 0.6 L (1.0-4.8) k/uL PT (9.0-12.0) sec APTT (22.0-30.0) sec ABG pH (7.35-7.45) ABG pCO2 (35-45) mmHg ABG pO2 (83-108) mmHg ABG HCO3 (21-25) mmol/L ABG Total CO2 (19-24) mmol/L ABG O2 Saturation (94-97) % ABG Hematocrit (34.0-46.0) % ABG Potassium (3.4-4.5) mmol/L Glucose 118 H (74-99) mg/dL POC Glucose (mg/dL) 135 H (75-99) mg/dL Calcium 7.7 L (8.4-10.2) mg/dL Magnesium (1.6-2.3) mg/dL Alkaline Phosphatase 30 L (38-126) U/L Total Protein 5.4 L (6.3-8.2) g/dL Albumin 3.4 L (3.5-5.0) g/dL Arterial Blood Potassium (3.4-4.5) mmol/L Crossmatch 06/26/16 06/26/16 06/26/16 Range/Units 05:08 06:17 07:10 RBC (4.30-5.90) m/uL Hgb (13.0-17.5) gm/dL Hct (39.0-53.0) % MCV (80.0-100.0) fL Plt Count (150-450) k/uL Lymphocytes # (1.0-4.8) k/uL PT (9.0-12.0) sec APTT (22.0-30.0) sec ABG pH (7.35-7.45) ABG pCO2 (35-45) mmHg ABG pO2 (83-108) mmHg ABG HCO3 (21-25) mmol/L ABG Total CO2 (19-24) mmol/L ABG O2 Saturation (94-97) % ABG Hematocrit (34.0-46.0) % ABG Potassium (3.4-4.5) mmol/L Glucose (74-99) mg/dL POC Glucose (mg/dL) 135 H 136 H 136 H (75-99) mg/dL Calcium (8.4-10.2) mg/dL Magnesium (1.6-2.3) mg/dL Alkaline Phosphatase (38-126) U/L Total Protein (6.3-8.2) g/dL Albumin (3.5-5.0) g/dL Arterial Blood Potassium (3.4-4.5) mmol/L Crossmatch 06/26/16 06/26/16 06/26/16 Range/Units 08:15 09:07 10:05 RBC (4.30-5.90) m/uL Hgb (13.0-17.5) gm/dL Hct (39.0-53.0) % MCV (80.0-100.0) fL Plt Count (150-450) k/uL Lymphocytes # (1.0-4.8) k/uL PT (9.0-12.0) sec APTT (22.0-30.0) sec ABG pH (7.35-7.45) ABG pCO2 (35-45) mmHg ABG pO2 (83-108) mmHg ABG HCO3 (21-25) mmol/L ABG Total CO2 (19-24) mmol/L ABG O2 Saturation (94-97) % ABG Hematocrit (34.0-46.0) % ABG Potassium (3.4-4.5) mmol/L Glucose (74-99) mg/dL POC Glucose (mg/dL) 140 H 155 H 142 H (75-99) mg/dL Calcium (8.4-10.2) mg/dL Magnesium (1.6-2.3) mg/dL Alkaline Phosphatase (38-126) U/L Total Protein (6.3-8.2) g/dL Albumin (3.5-5.0) g/dL Arterial Blood Potassium (3.4-4.5) mmol/L Crossmatch 06/26/16 06/26/16 06/26/16 Range/Units 10:57 11:57 13:17 RBC (4.30-5.90) m/uL Hgb (13.0-17.5) gm/dL Hct (39.0-53.0) % MCV (80.0-100.0) fL Plt Count (150-450) k/uL Lymphocytes # (1.0-4.8) k/uL PT (9.0-12.0) sec APTT (22.0-30.0) sec ABG pH (7.35-7.45) ABG pCO2 (35-45) mmHg ABG pO2 (83-108) mmHg ABG HCO3 (21-25) mmol/L ABG Total CO2 (19-24) mmol/L ABG O2 Saturation (94-97) % ABG Hematocrit (34.0-46.0) % ABG Potassium (3.4-4.5) mmol/L Glucose (74-99) mg/dL POC Glucose (mg/dL) 125 H 124 H 106 H (75-99) mg/dL Calcium (8.4-10.2) mg/dL Magnesium (1.6-2.3) mg/dL Alkaline Phosphatase (38-126) U/L Total Protein (6.3-8.2) g/dL Albumin (3.5-5.0) g/dL Arterial Blood Potassium (3.4-4.5) mmol/L Crossmatch 06/26/16 06/26/16 06/26/16 Range/Units 14:28 15:01 17:15 RBC (4.30-5.90) m/uL Hgb (13.0-17.5) gm/dL Hct (39.0-53.0) % MCV (80.0-100.0) fL Plt Count (150-450) k/uL Lymphocytes # (1.0-4.8) k/uL PT (9.0-12.0) sec APTT (22.0-30.0) sec ABG pH (7.35-7.45) ABG pCO2 (35-45) mmHg ABG pO2 (83-108) mmHg ABG HCO3 (21-25) mmol/L ABG Total CO2 (19-24) mmol/L ABG O2 Saturation (94-97) % ABG Hematocrit (34.0-46.0) % ABG Potassium (3.4-4.5) mmol/L Glucose (74-99) mg/dL POC Glucose (mg/dL) 115 H 110 H 110 H (75-99) mg/dL Calcium (8.4-10.2) mg/dL Magnesium (1.6-2.3) mg/dL Alkaline Phosphatase (38-126) U/L Total Protein (6.3-8.2) g/dL Albumin (3.5-5.0) g/dL Arterial Blood Potassium (3.4-4.5) mmol/L Crossmatch 06/26/16 Range/Units 18:12 RBC (4.30-5.90) m/uL Hgb (13.0-17.5) gm/dL Hct (39.0-53.0) % MCV (80.0-100.0) fL Plt Count (150-450) k/uL Lymphocytes # (1.0-4.8) k/uL PT (9.0-12.0) sec APTT (22.0-30.0) sec ABG pH (7.35-7.45) ABG pCO2 (35-45) mmHg ABG pO2 (83-108) mmHg ABG HCO3 (21-25) mmol/L ABG Total CO2 (19-24) mmol/L ABG O2 Saturation (94-97) % ABG Hematocrit (34.0-46.0) % ABG Potassium (3.4-4.5) mmol/L Glucose (74-99) mg/dL POC Glucose (mg/dL) 109 H (75-99) mg/dL Calcium (8.4-10.2) mg/dL Magnesium (1.6-2.3) mg/dL Alkaline Phosphatase (38-126) U/L Total Protein (6.3-8.2) g/dL Albumin (3.5-5.0) g/dL Arterial Blood Potassium (3.4-4.5) mmol/L Crossmatch Assessment and Plan Plan: 1. [Multivessel CAD, non-STEMI, status post CABG]. 2. [Chronic CHF, systolic dysfunction, with no acute exacerbation, Ischemic cardiomyopathy. 3. COPD with minimal exacerbation]. 4. [History of nicotine abuse]. 5. [Postoperative Atelectasis]. 6. [Postoperative anemia, to be expected]. Plan: Continue on current medication regime ,monitoring, and symptomatic treatment. As mentioned above Levophed weaning in progress with additional albumin scheduled. Aggressive pulmonary toileting, reinstructed on incentive spirometer. GI, DVT prophylaxis in place. Further recommendations to follow. The impression and plan of care has been dictated as directed. : I performed a H&P examination of this patient and discussed the same with the dictator. I agree with the dictator's note. Any additional findings/opinions/ etc. will be noted.
[2016-06-27 12:16] LABS: Glucose,Whole Blood 128 mg/dL (75-99)
[2016-06-27] MEDS: LEVALBUTEROL NEB 1.25 MG/3 ML AMP INHALATION SCH ×2 (12:56→19:33)
[2016-06-27 13:17] LABS: Glucose,Whole Blood 135 mg/dL (75-99)
[2016-06-27] MEDS: CHOLECALCIFEROL 1,000 UNIT TAB PO SCH (13:39)
[2016-06-27] MEDS: MULTIVITAMINS, THERA 1 EACH TAB PO SCH (13:39)
[2016-06-27 14:10] LABS: Glucose,Whole Blood 179 mg/dL (75-99)
--- NOTE | 2016-06-27 14:33 | P.PN ---
Subjective Date of service 06/27/2016. Progress note being dictated for Dr. Raymond. Interval history: This is a 65-year-old gentleman admitted with multivessel disease, status post CABG, postop day #2. Developed proximal atrial fibrillation with RVR during the night, now on amiodarone drip. Currently afebrile with controlled ventricular rate. Levophed has remained off since early a.m. and low-dose beta linda initiated. Continues on insulin and nitroglycerin drips. Incentive spirometer [id number]. Positive diet intake, denies nausea or vomiting. States did not sleep well last night. Mediastinal chest tubes are scheduled to be DC'd, MANISHA was discontinued yesterday. Hemoglobin 10.3. Telemetry sinus rhythm. Chest x-ray reporting mild pulmonary vascular congestion, atelectasis. Hemoglobin 8.0. Objective - Vital Signs Vital signs: Vital Signs Temp 98.1 F 06/27/16 12:00 Pulse 72 06/27/16 14:00 Resp 14 06/27/16 14:00 BP 108/60 06/27/16 01:00 Pulse Ox 95 06/27/16 14:00 Intake & Output 06/26/16 06/27/16 06/27/16 18:59 06:59 18:59 Intake Total 2986.649 876.358 635.223 Output Total 1390 1181 442 Balance 1596.649 -304.642 193.223 Weight 85 kg Intake: IV 707 672 242 CO/CI 20 LR 600 600 200 PRESSURE BAGS 87 72 42 Intake, IV Titration 1529.649 204.358 393.223 Amount ACETAMINOPHEN IV (For NPO 100 ) 1,000 mg In Empty Bag 1 bag @ 400 mls/hr IVPB Q6H RAC[facility] Rx#:[id number] Albumin Human 5% 500 ml 750 In Empty Bag 1 bag @ 250 mls/hr IVPB ONCE PRN Rx#: [id number] Albumin Human 5% 500 ml 250 In Empty Bag 1 bag @ 250 mls/hr IVPB ONCE PRN Rx#: [id number] Amiodarone 450 mg In 193.2 Dextrose 5% in Water 250 ml @ 1 MG/MIN 34.53 mls/ hr IV .Q7H31M [facility] Rx#: [id number] Dextrose 5% in Water 100 100 ml @ 618 mls/hr IV .Q10M ONE with Amiodarone 150 mg Rx#:[id number] Dextrose 5% in Water 100 100 ml @ 618 mls/hr IV .Q10M ONE with Amiodarone 150 mg Rx#:[id number] Insulin Regular 100 unit 9.270 5.569 0.023 In Sodium Chloride 0.9% 100 ml @ Per Protocol IV .Q0M [facility] Rx#:[id number] Nitroglycerin-D5w Pmx 50 17.675 1.875 mg In Dextrose/Water 1 250ml.bag @ 10 MCG/MIN 3 mls/hr IV .Q24H [facility] Rx#: [id number] Norepinephrine 4 mg In 302.704 196.914 Sodium Chloride 0.9% 250 ml @ Titrate IV .Q0M [facility] Rx#:[id number] ceFAZolin 2 gm In Sodium 100 Chloride 0.9% 100 ml @ 100 mls/hr IVPB Q8HR [facility] Rx#:[id number] Oral 750 Output: Chest Tube Drainage 370 336 160 Left Pleural 84 120 65 Mediastinal x 2 215 115 35 Right Pleural 71 101 60 Drainage 120 Left Upper Calf 70 Left Wrist 50 Urine 900 845 282 Other: Voiding Method Indwelling Catheter Indwelling Catheter Indwelling Catheter # Voids 1 ABP, PAP, CO, CI - Last Documented Arterial Blood Pressure 100/53 Pulmonary Artery Pressure 17/7 Cardiac Output 8.0 Cardiac Index 3.9 - Exam PHYSICAL EXAM: VITAL SIGNS: As above GENERAL: [Sitting up in chair, no acute distress] HEENT: [Pupils equal conjunctiva normal.] NECK: [Supple, no JVD, [place] present] RESPIRATORY EFFORT:[Normal] LUNGS: [Diminished, fine bibasilar crackles, no crackles, no wheezes, chest tubes present] CARDIOVASCULAR[regular S1 and S2, no murmurs rubs or gallops. Trace edema] GI: [Abdomen soft, nontender, nondistended, hypoactive bowel sounds.] PSYCH: [Alert and oriented -3, mood and affect normal.] NEURO: No focal deficits - Labs CBC & Chem 7: 06/27/16 04:00 06/27/16 04:00 Labs: Abnormal Lab Results - Last 24 Hours (Table) 06/26/16 06/26/16 06/26/16 Range/Units 14:28 15:01 17:15 RBC (4.30-5.90) m/uL Hgb (13.0-17.5) gm/dL Hct (39.0-53.0) % MCV (80.0-100.0) fL Plt Count (150-450) k/uL Sodium (137-145) mmol/L Creatinine (0.66-1.25) mg/dL Glucose (74-99) mg/dL POC Glucose (mg/dL) 115 H 110 H 110 H (75-99) mg/dL Calcium (8.4-10.2) mg/dL Alkaline Phosphatase (38-126) U/L Total Protein (6.3-8.2) g/dL Albumin (3.5-5.0) g/dL 06/26/16 06/26/16 06/26/16 Range/Units 18:12 18:59 20:02 RBC (4.30-5.90) m/uL Hgb (13.0-17.5) gm/dL Hct (39.0-53.0) % MCV (80.0-100.0) fL Plt Count (150-450) k/uL Sodium (137-145) mmol/L Creatinine (0.66-1.25) mg/dL Glucose (74-99) mg/dL POC Glucose (mg/dL) 109 H 148 H 139 H (75-99) mg/dL Calcium (8.4-10.2) mg/dL Alkaline Phosphatase (38-126) U/L Total Protein (6.3-8.2) g/dL Albumin (3.5-5.0) g/dL 06/26/16 06/26/16 06/27/16 Range/Units 20:57 22:04 01:10 RBC (4.30-5.90) m/uL Hgb (13.0-17.5) gm/dL Hct (39.0-53.0) % MCV (80.0-100.0) fL Plt Count (150-450) k/uL Sodium (137-145) mmol/L Creatinine (0.66-1.25) mg/dL Glucose (74-99) mg/dL POC Glucose (mg/dL) 142 H 112 H 106 H (75-99) mg/dL Calcium (8.4-10.2) mg/dL Alkaline Phosphatase (38-126) U/L Total Protein (6.3-8.2) g/dL Albumin (3.5-5.0) g/dL 06/27/16 06/27/16 06/27/16 Range/Units 02:10 03:06 03:55 RBC (4.30-5.90) m/uL Hgb (13.0-17.5) gm/dL Hct (39.0-53.0) % MCV (80.0-100.0) fL Plt Count (150-450) k/uL Sodium (137-145) mmol/L Creatinine (0.66-1.25) mg/dL Glucose (74-99) mg/dL POC Glucose (mg/dL) 106 H 109 H 118 H (75-99) mg/dL Calcium (8.4-10.2) mg/dL Alkaline Phosphatase (38-126) U/L Total Protein (6.3-8.2) g/dL Albumin (3.5-5.0) g/dL 06/27/16 06/27/16 06/27/16 Range/Units 04:00 04:00 05:56 RBC 2.40 L (4.30-5.90) m/uL Hgb 8.0 L D (13.0-17.5) gm/dL Hct 24.3 L (39.0-53.0) % MCV 101.3 H (80.0-100.0) fL Plt Count 120 L (150-450) k/uL Sodium 136 L (137-145) mmol/L Creatinine 0.60 L (0.66-1.25) mg/dL Glucose 104 H (74-99) mg/dL POC Glucose (mg/dL) 114 H (75-99) mg/dL Calcium 8.1 L (8.4-10.2) mg/dL Alkaline Phosphatase 32 L (38-126) U/L Total Protein 5.3 L (6.3-8.2) g/dL Albumin 3.3 L (3.5-5.0) g/dL 06/27/16 06/27/16 06/27/16 Range/Units 07:58 08:55 10:05 RBC (4.30-5.90) m/uL Hgb (13.0-17.5) gm/dL Hct (39.0-53.0) % MCV (80.0-100.0) fL Plt Count (150-450) k/uL Sodium (137-145) mmol/L Creatinine (0.66-1.25) mg/dL Glucose (74-99) mg/dL POC Glucose (mg/dL) 132 H 111 H 139 H (75-99) mg/dL Calcium (8.4-10.2) mg/dL Alkaline Phosphatase (38-126) U/L Total Protein (6.3-8.2) g/dL Albumin (3.5-5.0) g/dL 06/27/16 06/27/16 06/27/16 Range/Units 11:16 12:14 13:15 RBC (4.30-5.90) m/uL Hgb (13.0-17.5) gm/dL Hct (39.0-53.0) % MCV (80.0-100.0) fL Plt Count (150-450) k/uL Sodium (137-145) mmol/L Creatinine (0.66-1.25) mg/dL Glucose (74-99) mg/dL POC Glucose (mg/dL) 132 H 128 H 135 H (75-99) mg/dL Calcium (8.4-10.2) mg/dL Alkaline Phosphatase (38-126) U/L Total Protein (6.3-8.2) g/dL Albumin (3.5-5.0) g/dL 06/27/16 Range/Units 14:08 RBC (4.30-5.90) m/uL Hgb (13.0-17.5) gm/dL Hct (39.0-53.0) % MCV (80.0-100.0) fL Plt Count (150-450) k/uL Sodium (137-145) mmol/L Creatinine (0.66-1.25) mg/dL Glucose (74-99) mg/dL POC Glucose (mg/dL) 179 H (75-99) mg/dL Calcium (8.4-10.2) mg/dL Alkaline Phosphatase (38-126) U/L Total Protein (6.3-8.2) g/dL Albumin (3.5-5.0) g/dL Assessment and Plan Plan: 1. [Multivessel CAD, non-STEMI, status post CABG]. 2. [Chronic CHF, systolic dysfunction, with no acute exacerbation, history of Ischemic cardiomyopathy. 3. COPD with minimal exacerbation]. 4. [History of nicotine abuse]. 5. [Postoperative Atelectasis]. 6. [Postoperative anemia, to be expected]. 7. Proximal atrial fibrillation with RVR Plan: Continue on current medication regime , aspirin, Plavix, statin, beta linda ,monitoring, and symptomatic treatment. Aggressive pulmonary toileting, reinstructed on incentive spirometer. Further recommendations to follow. The impression and plan of care has been dictated as directed. : I performed a H&P examination of this patient and discussed the same with the dictator. I agree with the dictator's note. Any additional findings/opinions/ etc. will be noted.
--- NOTE | 2016-06-27 14:34 | P.PN ---
Subjective Principal diagnosis: Triple-vessel coronary artery disease and left ventricular dysfunction. 65-year-old male patient, a chronic smoker with a positive family history of coronary artery disease, presented with episodes of chest pain. Further investigation revealed an abnormal EKG and following that the patient came into the hospital where he had a cardiac catheterization that showed triple-vessel disease with subtotal occluded mid LAD and severely impaired LV function with an ejection fraction of 35%. The patient is being considered for coronary artery bypass surgery. Echocardiogram was also done that showed an ejection fraction of 35-40%. There was evidence of segmental wall motion abnormalities. Aortic root was dilated at 3.8 cm in size. Clinically the patient reports to be in a good state of health. He drinks alcohol every night around few glasses of liquor. No history of any delirium tremens. Denies being an alcoholic. 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 He has a chronic congested cough. No silica sputum production. No pleurisy. No hemoptysis. He reports that he was in a good state of health and he was able to walk long distances incline couple of flights of stairs prior to this event without any major difficulties. No history of any DVT or pulmonary embolism. No swelling in lower extremities. Chest x-ray from this admission showed evidence of COPD. A bedside spirometry has not been done yet. No history of any childhood asthma. No hospitalization for any respiratory difficulties. Based on room air pulse ox is ranging between 91-93%. On 06/24/2016, the patient is stable. No significant chest pain. No shortness of breath. The patient was placed on systemic steroids. The FEV1 measurement was of a 86% of predicted. The patient is scheduled to undergo his coronary bypass surgery more afternoon. Hemodynamically stable. No other significant events otherwise. On 06/25/2016, patient is doing well, patient is being considered for CABG today. Presently no cough no wheezing no shortness of breath, and the patient is hemodynamically stable. On 06/26/2016, patient is postoperative day #1, patient had a quadruple coronary artery bypass grafting postoperative course was relatively uneventful, patient was extubated last night, and he continues to do relatively well. Patient is currently sitting up in the chair, and his pain seems to be fairly well controlled. He denies any shortness of breath no cough no wheezing. Compliant to very well with incentive spirometry. Hemoglobin is 10.3. Renal profile is normal. On 06/27/2016 patient is postoperative day #2, had a quadruple coronary artery bypass grafting continues to do relatively well. On examination today, patient was noted to have diffuse rhonchi and wheezes. Hence I recommended starting him back on Solu-Medrol. We will address the Solu-Medrol on a daily basis, and in the meantime we'll continue his updrafts. I have placed him on Xopenex. Since the patient had episodes of tachycardia earlier today. CBC showed hemoglobin of 8.0 WBC count of 6.3 rest of the labs are unremarkable. Objective - Vital Signs Vital signs: Vital Signs Temp 98.1 F 06/27/16 12:00 Pulse 72 06/27/16 14:00 Resp 14 06/27/16 14:00 BP 108/60 06/27/16 01:00 Pulse Ox 95 06/27/16 14:00 Intake & Output 06/26/16 06/27/16 06/27/16 18:59 06:59 18:59 Intake Total 2986.649 876.358 635.223 Output Total 1390 1181 442 Balance 1596.649 -304.642 193.223 Weight 85 kg Intake: IV 707 672 242 CO/CI 20 LR 600 600 200 PRESSURE BAGS 87 72 42 Intake, IV Titration 1529.649 204.358 393.223 Amount ACETAMINOPHEN IV (For NPO 100 ) 1,000 mg In Empty Bag 1 bag @ 400 mls/hr IVPB Q6H [facility] Rx#:[id number] Albumin Human 5% 500 ml 750 In Empty Bag 1 bag @ 250 mls/hr IVPB ONCE PRN Rx#: [id number] Albumin Human 5% 500 ml 250 In Empty Bag 1 bag @ 250 mls/hr IVPB ONCE PRN Rx#: [id number] Amiodarone 450 mg In 193.2 Dextrose 5% in Water 250 ml @ 1 MG/MIN 34.53 mls/ hr IV .Q7H31M [facility] Rx#: [id number] Dextrose 5% in Water 100 100 ml @ 618 mls/hr IV .Q10M ONE with Amiodarone 150 mg Rx#:[id number] Dextrose 5% in Water 100 100 ml @ 618 mls/hr IV .Q10M ONE with Amiodarone 150 mg Rx#:[id number] Insulin Regular 100 unit 9.270 5.569 0.023 In Sodium Chloride 0.9% 100 ml @ Per Protocol IV .Q0M [facility] Rx#:[id number] Nitroglycerin-D5w Pmx 50 17.675 1.875 mg In Dextrose/Water 1 250ml.bag @ 10 MCG/MIN 3 mls/hr IV .Q24H [facility] Rx#: [id number] Norepinephrine 4 mg In 302.704 196.914 Sodium Chloride 0.9% 250 ml @ Titrate IV .Q0M [facility] Rx#:[id number] ceFAZolin 2 gm In Sodium 100 Chloride 0.9% 100 ml @ 100 mls/hr IVPB Q8HR [facility] Rx#:[id number] Oral 750 Output: Chest Tube Drainage 370 336 160 Left Pleural 84 120 65 Mediastinal x 2 215 115 35 Right Pleural 71 101 60 Drainage 120 Left Upper Calf 70 Left Wrist 50 Urine 900 845 282 Other: Voiding Method Indwelling Catheter Indwelling Catheter Indwelling Catheter # Voids 1 ABP, PAP, CO, CI - Last Documented Arterial Blood Pressure 100/53 Pulmonary Artery Pressure 17/7 Cardiac Output 8.0 Cardiac Index 3.9 - Exam Physical Exam: Revealed a 65-year-old in no distress. On nasal cannula, off mechanical ventilation. HEENT:[Neck is supple.] [No neck masses.] [No thyromegaly.] [No JVD.] Chest: [Rhonchi and wheezes noted bilaterally more so on forced expiratory maneuver..] Cardiac Exam: [Normal S1 and S2, no S3 gallop, no murmur.] Abdomen: [Soft, nontender, no megaly, no rebound, no guarding, normal bowel sounds.] Extremities: [No clubbing, no edema, no cyanosis.] Neurological Exam: [No focal neurologic deficit.] - Labs CBC & Chem 7: 06/27/16 04:00 06/27/16 04:00 Labs: Abnormal Lab Results - Last 24 Hours (Table) 06/26/16 06/26/16 06/26/16 Range/Units 15:01 17:15 18:12 RBC (4.30-5.90) m/uL Hgb (13.0-17.5) gm/dL Hct (39.0-53.0) % MCV (80.0-100.0) fL Plt Count (150-450) k/uL Sodium (137-145) mmol/L Creatinine (0.66-1.25) mg/dL Glucose (74-99) mg/dL POC Glucose (mg/dL) 110 H 110 H 109 H (75-99) mg/dL Calcium (8.4-10.2) mg/dL Alkaline Phosphatase (38-126) U/L Total Protein (6.3-8.2) g/dL Albumin (3.5-5.0) g/dL 06/26/16 06/26/16 06/26/16 Range/Units 18:59 20:02 20:57 RBC (4.30-5.90) m/uL Hgb (13.0-17.5) gm/dL Hct (39.0-53.0) % MCV (80.0-100.0) fL Plt Count (150-450) k/uL Sodium (137-145) mmol/L Creatinine (0.66-1.25) mg/dL Glucose (74-99) mg/dL POC Glucose (mg/dL) 148 H 139 H 142 H (75-99) mg/dL Calcium (8.4-10.2) mg/dL Alkaline Phosphatase (38-126) U/L Total Protein (6.3-8.2) g/dL Albumin (3.5-5.0) g/dL 06/26/16 06/27/16 06/27/16 Range/Units 22:04 01:10 02:10 RBC (4.30-5.90) m/uL Hgb (13.0-17.5) gm/dL Hct (39.0-53.0) % MCV (80.0-100.0) fL Plt Count (150-450) k/uL Sodium (137-145) mmol/L Creatinine (0.66-1.25) mg/dL Glucose (74-99) mg/dL POC Glucose (mg/dL) 112 H 106 H 106 H (75-99) mg/dL Calcium (8.4-10.2) mg/dL Alkaline Phosphatase (38-126) U/L Total Protein (6.3-8.2) g/dL Albumin (3.5-5.0) g/dL 06/27/16 06/27/16 06/27/16 Range/Units 03:06 03:55 04:00 RBC (4.30-5.90) m/uL Hgb (13.0-17.5) gm/dL Hct (39.0-53.0) % MCV (80.0-100.0) fL Plt Count (150-450) k/uL Sodium 136 L (137-145) mmol/L Creatinine 0.60 L (0.66-1.25) mg/dL Glucose 104 H (74-99) mg/dL POC Glucose (mg/dL) 109 H 118 H (75-99) mg/dL Calcium 8.1 L (8.4-10.2) mg/dL Alkaline Phosphatase 32 L (38-126) U/L Total Protein 5.3 L (6.3-8.2) g/dL Albumin 3.3 L (3.5-5.0) g/dL 06/27/16 06/27/16 06/27/16 Range/Units 04:00 05:56 07:58 RBC 2.40 L (4.30-5.90) m/uL Hgb 8.0 L D (13.0-17.5) gm/dL Hct 24.3 L (39.0-53.0) % MCV 101.3 H (80.0-100.0) fL Plt Count 120 L (150-450) k/uL Sodium (137-145) mmol/L Creatinine (0.66-1.25) mg/dL Glucose (74-99) mg/dL POC Glucose (mg/dL) 114 H 132 H (75-99) mg/dL Calcium (8.4-10.2) mg/dL Alkaline Phosphatase (38-126) U/L Total Protein (6.3-8.2) g/dL Albumin (3.5-5.0) g/dL 06/27/16 06/27/16 06/27/16 Range/Units 08:55 10:05 11:16 RBC (4.30-5.90) m/uL Hgb (13.0-17.5) gm/dL Hct (39.0-53.0) % MCV (80.0-100.0) fL Plt Count (150-450) k/uL Sodium (137-145) mmol/L Creatinine (0.66-1.25) mg/dL Glucose (74-99) mg/dL POC Glucose (mg/dL) 111 H 139 H 132 H (75-99) mg/dL Calcium (8.4-10.2) mg/dL Alkaline Phosphatase (38-126) U/L Total Protein (6.3-8.2) g/dL Albumin (3.5-5.0) g/dL 06/27/16 06/27/16 06/27/16 Range/Units 12:14 13:15 14:08 RBC (4.30-5.90) m/uL Hgb (13.0-17.5) gm/dL Hct (39.0-53.0) % MCV (80.0-100.0) fL Plt Count (150-450) k/uL Sodium (137-145) mmol/L Creatinine (0.66-1.25) mg/dL Glucose (74-99) mg/dL POC Glucose (mg/dL) 128 H 135 H 179 H (75-99) mg/dL Calcium (8.4-10.2) mg/dL Alkaline Phosphatase (38-126) U/L Total Protein (6.3-8.2) g/dL Albumin (3.5-5.0) g/dL Assessment and Plan Plan: Impression: Status post CABG, postoperative day #2 Acute presentation of myocardial infarction initially, Acute left ventricular dysfunction and ischemic cardiomyopathy History of underlying COPD severity of which is [id number]. History of tobacco dependence syndrome. Postoperative atelectasis Recommendation: Continue present treatment plan including usual cardiac meds Plavix statin and aspirin, bronchodilators, incentive spirometry, today I placed him back on Xopenex and on Solu-Medrol. We'll continue to follow. Time with Patient: Less than 30
[2016-06-27 15:07] LABS: Glucose,Whole Blood 182 mg/dL (75-99)
[2016-06-27 15:55] LABS: Glucose,Whole Blood 186 mg/dL (75-99)
[2016-06-27 17:19] LABS: Glucose,Whole Blood 158 mg/dL (75-99)
[2016-06-27 18:19] LABS: Glucose,Whole Blood 149 mg/dL (75-99)
[2016-06-27 19:15] LABS: Glucose,Whole Blood 149 mg/dL (75-99)
[2016-06-27 20:10] LABS: Glucose,Whole Blood 168 mg/dL (75-99)
[2016-06-27] MEDS: SENNOSIDES-DOCUSATE SODIUM 1 EACH TAB PO SCH (20:42)
[2016-06-27 21:38] LABS: Glucose,Whole Blood 171 mg/dL (75-99)
[2016-06-27] MEDS: METOPROLOL TARTRATE 12.5 MG TAB PO SCH (21:54)
[2016-06-27 22:11] LABS: Glucose,Whole Blood 157 mg/dL (75-99)
[2016-06-27 23:08] LABS: Glucose,Whole Blood 123 mg/dL (75-99)
[2016-06-28] MEDS: HEPARIN SODIUM,PORCINE 5,000 UNIT/ML 1 ML VIAL SQ SCH ×4 (00:19→23:30)
[2016-06-28] MEDS: methylPREDNISolone SOD SUCCI 40 MG/ML 1 ML VIAL IV SCH ×4 (00:19→23:30)
[2016-06-28 00:30] LABS: Glucose,Whole Blood 101 mg/dL (75-99)
[2016-06-28 01:24] LABS: Glucose,Whole Blood 131 mg/dL (75-99)
[2016-06-28] MEDS: HYDROcodone/APAP 5-325MG 1 EACH TAB PO PRN ×3 (01:25→16:08)
[2016-06-28 02:04] LABS: Glucose,Whole Blood 132 mg/dL (75-99)
[2016-06-28 03:14] LABS: Glucose,Whole Blood 112 mg/dL (75-99)
[2016-06-28] MEDS: AMIODARONE 450 MG in DEXTROSE 5% IN WATER 250 ML IV SCH ×2 (03:25)
[2016-06-28 04:06] LABS: Glucose,Whole Blood 138 mg/dL (75-99)
[2016-06-28 05:08] LABS: Glucose,Whole Blood 128 mg/dL (75-99)
[2016-06-28 05:23] LABS: Ionized Calcium 5.1 mg/dL (4.5-5.3)
[2016-06-28 05:26] LABS: Basophils % (A) 0 %; CH 33.7; CHCM 33.4; Eosinophils % (A) 0 %; HCT 23.1 % (39.0-53.0); HDW 2.34; HGB 7.5 gm/dL (13.0-17.5); Luc # (Auto) 0.09; Luc % (Auto) 1; Lymphocytes # (A) 0.5 k/uL (1.0-4.8); Lymphocytes % (A) 6 %; MCH 33.1 pg (25.0-35.0); MCHC 32.6 g/dL (31.0-37.0); MCV 101.5 fL (80.0-100.0); Macrocytosis Slight; Mean Platelet Volume 7.7; Monocytes # (A) 0.4 k/uL (0-1.0); Monocytes % (A) 5 %; Neutrophils % (A) 89 %; RBC 2.27 m/uL (4.30-5.90); RDW 13.2 % (11.5-15.5); WBC 9.1 k/uL (3.8-10.6); WBC (Perox) 9.33
[2016-06-28 05:33] LABS: ALT 29 U/L (21-72); AST 27 U/L (17-59); Alkaline Phosphatase 35 U/L (38-126); Anion Gap 8 mmol/L; Blood Urea Nitrogen 20 mg/dL (9-20); Calcium 8.7 mg/dL (8.4-10.2); Carbon Dioxide 25 mmol/L (22-30); Chloride 105 mmol/L (98-107); Glucose 115 mg/dL (74-99); Magnesium 2.2 mg/dL (1.6-2.3); Non-African American GFR(MDRD) >60 (>60 ml/min/1.73 sqM); Potassium 4.3 mmol/L (3.5-5.1); Sodium 138 mmol/L (137-145); Total Bilirubin 0.5 mg/dL (0.2-1.3); Total Protein 5.5 g/dL (6.3-8.2)
[2016-06-28 05:38] LABS: INR 0.9 (<1.1); Prothrombin Time 9.4 sec (9.0-12.0)
[2016-06-28 06:15] LABS: Glucose,Whole Blood 102 mg/dL (75-99)
--- NOTE | 2016-06-28 07:28 | XR ---
EXAMINATION TYPE: XR chest 1V portable DATE OF EXAM: 06/28/2016 6:40 AM HISTORY: Shortness of breath. COMPARISON: 06/27/2016 TECHNIQUE: Single view of the chest is submitted. FINDINGS: Right-sided chest tube is unchanged in position as is left basilar chest tube. No evidence for pneumo thorax. Right IJ sheath is in place. Demonstrated are scattered senescent parenchymal change. Scattered pleural parenchymal opacities are unchanged. The heart is stable. Hilar and mediastinal structures are within normal limits. Degenerative changes are seen of the dorsal spine. IMPRESSION: 1. Stable postoperative chest.
[2016-06-28 07:29] LABS: Glucose,Whole Blood 126 mg/dL (75-99)
[2016-06-28] MEDS: LEVALBUTEROL NEB 1.25 MG/3 ML AMP INHALATION SCH ×3 (07:31→18:51)
[2016-06-28 07:59] LABS: Glucose,Whole Blood 139 mg/dL (75-99)
[2016-06-28] MEDS: VITAMIN A 10,000 UNIT CAPSULE PO SCH (08:05)
[2016-06-28] MEDS: MUPIROCIN 2% OINT 22 GM TUBE NASAL SCH ×2 (08:06→21:23)
[2016-06-28] MEDS: FERROUS SULFATE 325 MG TAB PO SCH ×2 (08:11→16:18)
[2016-06-28] MEDS: METOPROLOL TARTRATE 12.5 MG TAB PO SCH ×2 (08:11→21:22)
[2016-06-28] MEDS: ASCORBIC ACID 500 MG TAB PO SCH ×2 (08:11→21:22)
[2016-06-28] MEDS: ASPIRIN 325 MG TAB PO SCH (08:11)
[2016-06-28] MEDS: THIAMINE 100 MG/ML 2 ML VIAL IVP SCH (08:12)
[2016-06-28] MEDS: CLOPIDOGREL 75 MG TAB PO SCH (08:12)
[2016-06-28] MEDS: PANTOPRAZOLE 40 MG/10 ML VIAL IVP SCH (08:12)
[2016-06-28] MEDS: ATORVASTATIN 40 MG TAB PO SCH (08:12)
[2016-06-28] MEDS ORDERED: amLODIPine 5 MG TAB PO SCH ×2 (09:00→12:00)
[2016-06-28 09:15] LABS: Glucose,Whole Blood 147 mg/dL (75-99)
--- NOTE | 2016-06-28 09:21 | P.PN ---
Subjective Principal diagnosis: Triple vessel coronary artery disease, occluded collateralized left anterior descending artery with evidence of an old anterior wall myocardial infarction, moderate left ventricular dysfunction, tobacco abuse with chronic obstructive pulmonary disease, strong family history. POD #3 multiple arterial quadruple coronary artery bypass grafting using the left internal mammary artery to the left anterior descending artery, left radial artery from the aorta sequentially to the first obtuse marginal artery in a [id number] fashion. Then to the second obtuse marginal artery in an end- to-side fashion, reverse saphenous vein graft from the aorta to the posterior descending artery. Endoscopic harvesting of the left greater saphenous vein. Endoscopic harvesting of the left radial artery. Intraoperative transesophageal echocardiogram and epi-aortic scanning. Patient currently sitting up in the chair in no apparent distress. States he' s feeling better but is frustrated because he hasn't had a bowel movement yet. Objective - Vital Signs Vital signs: Vital Signs Temp 98.6 F 06/28/16 08:00 Pulse 95 06/28/16 08:00 Resp 20 06/28/16 08:00 BP 108/60 06/27/16 01:00 Pulse Ox 93 L 06/28/16 08:00 Intake & Output 06/27/16 06/28/16 06/28/16 18:59 06:59 18:59 Intake Total 1398.066 443.984 2.353 Output Total 667 875 Balance 731.066 -431.016 2.353 Weight 89.5 kg Intake: IV 372 279 LR 300 240 PRESSURE BAGS 72 39 Intake, IV Titration 726.066 44.984 2.353 Amount Amiodarone 450 mg In 518.800 Dextrose 5% in Water 250 ml @ 1 MG/MIN 34.53 mls/ hr IV .Q7H31M [facility] Rx#: [id number] Dextrose 5% in Water 100 100 ml @ 618 mls/hr IV .Q10M ONE with Amiodarone 150 mg Rx#:[id number] Dextrose 5% in Water 100 100 ml @ 618 mls/hr IV .Q10M [facility] with Amiodarone 150 mg Rx#:[id number] Insulin Regular 100 unit 7.266 44.984 2.353 In Sodium Chloride 0.9% 100 ml @ Per Protocol IV .Q0M [facility] Rx#:[id number] Oral 300 120 Output: Chest Tube Drainage 160 90 Left Pleural 65 40 Mediastinal x 2 35 Right Pleural 60 50 Urine 507 785 Other: Voiding Method Indwelling Catheter Indwelling Catheter ABP, PAP, CO, CI - Last Documented Arterial Blood Pressure 113/54 Pulmonary Artery Pressure 17/7 Cardiac Output 8.0 Cardiac Index 3.9 - Constitutional General appearance: Present: cooperative, no acute distress - Respiratory Details: Lungs sounds diminished with wheezing throughout. Respirations even, nonlabored. Currently on 3 L nasal cannula. Able to achieve 2000 mL on incentive spirometry. Left pleural chest tube to -20 cm wall suction, draining serous fluid, 40 mL the last 12 hours, 105 mL last 24 hours. Right pleural chest tube to -20 cm wall suction, draining serous fluid, 50 mL in the last 12 hours, 120 mL in the last 24 hours. - Cardiovascular Details: S1, S2 present. Regular rate and rhythm, normal sinus rhythm on telemetry. No more episodes of atrial fibrillation. Chest stable. Heart hugger in place with patient demonstrating appropriate use. Teds, SCDs present. - Gastrointestinal Gastrointestinal Comment(s): abdomen soft, nontender, nondistended. Active bowel sounds 4 quadrants. Positive flatus, negative BM since surgery. Tolerating diet. - Genitourinary Genitourinary Comment(s): Patient voiding clear, yellow urine. - Integumentary Integumentary Comment(s): Anterior chest incision covered with dry intact silver dressing. Left radial graft site well approximated. Left lower extremity EVH site well approximated. - Musculoskeletal Musculoskeletal: Present: gait normal - Psychiatric Psychiatric: Present: A&O x's 3, appropriate affect, intact judgment & insight - Allied health notes Allied health notes reviewed: nursing - Labs CBC & Chem 7: 06/28/16 05:10 06/28/16 05:10 Labs: Abnormal Lab Results - Last 24 Hours (Table) 06/27/16 06/27/16 06/27/16 Range/Units 10:05 11:16 12:14 RBC (4.30-5.90) m/uL Hgb (13.0-17.5) gm/dL Hct (39.0-53.0) % MCV (80.0-100.0) fL Plt Count (150-450) k/uL Neutrophils # (1.3-7.7) k/uL Lymphocytes # (1.0-4.8) k/uL Glucose (74-99) mg/dL POC Glucose (mg/dL) 139 H 132 H 128 H (75-99) mg/dL Alkaline Phosphatase (38-126) U/L Total Protein (6.3-8.2) g/dL Albumin (3.5-5.0) g/dL 06/27/16 06/27/16 06/27/16 Range/Units 13:15 14:08 15:00 RBC (4.30-5.90) m/uL Hgb (13.0-17.5) gm/dL Hct (39.0-53.0) % MCV (80.0-100.0) fL Plt Count (150-450) k/uL Neutrophils # (1.3-7.7) k/uL Lymphocytes # (1.0-4.8) k/uL Glucose (74-99) mg/dL POC Glucose (mg/dL) 135 H 179 H 182 H (75-99) mg/dL Alkaline Phosphatase (38-126) U/L Total Protein (6.3-8.2) g/dL Albumin (3.5-5.0) g/dL 06/27/16 06/27/16 06/27/16 Range/Units 15:54 17:17 18:16 RBC (4.30-5.90) m/uL Hgb (13.0-17.5) gm/dL Hct (39.0-53.0) % MCV (80.0-100.0) fL Plt Count (150-450) k/uL Neutrophils # (1.3-7.7) k/uL Lymphocytes # (1.0-4.8) k/uL Glucose (74-99) mg/dL POC Glucose (mg/dL) 186 H 158 H 149 H (75-99) mg/dL Alkaline Phosphatase (38-126) U/L Total Protein (6.3-8.2) g/dL Albumin (3.5-5.0) g/dL 06/27/16 06/27/16 06/27/16 Range/Units 19:12 20:08 21:35 RBC (4.30-5.90) m/uL Hgb (13.0-17.5) gm/dL Hct (39.0-53.0) % MCV (80.0-100.0) fL Plt Count (150-450) k/uL Neutrophils # (1.3-7.7) k/uL Lymphocytes # (1.0-4.8) k/uL Glucose (74-99) mg/dL POC Glucose (mg/dL) 149 H 168 H 171 H (75-99) mg/dL Alkaline Phosphatase (38-126) U/L Total Protein (6.3-8.2) g/dL Albumin (3.5-5.0) g/dL 06/27/16 06/27/16 06/28/16 Range/Units 22:10 23:06 00:22 RBC (4.30-5.90) m/uL Hgb (13.0-17.5) gm/dL Hct (39.0-53.0) % MCV (80.0-100.0) fL Plt Count (150-450) k/uL Neutrophils # (1.3-7.7) k/uL Lymphocytes # (1.0-4.8) k/uL Glucose (74-99) mg/dL POC Glucose (mg/dL) 157 H 123 H 101 H (75-99) mg/dL Alkaline Phosphatase (38-126) U/L Total Protein (6.3-8.2) g/dL Albumin (3.5-5.0) g/dL 06/28/16 06/28/16 06/28/16 Range/Units 01:22 02:04 03:12 RBC (4.30-5.90) m/uL Hgb (13.0-17.5) gm/dL Hct (39.0-53.0) % MCV (80.0-100.0) fL Plt Count (150-450) k/uL Neutrophils # (1.3-7.7) k/uL Lymphocytes # (1.0-4.8) k/uL Glucose (74-99) mg/dL POC Glucose (mg/dL) 131 H 132 H 112 H (75-99) mg/dL Alkaline Phosphatase (38-126) U/L Total Protein (6.3-8.2) g/dL Albumin (3.5-5.0) g/dL 06/28/16 06/28/16 06/28/16 Range/Units 04:05 05:04 05:10 RBC 2.27 L (4.30-5.90) m/uL Hgb 7.5 L (13.0-17.5) gm/dL Hct 23.1 L (39.0-53.0) % MCV 101.5 H (80.0-100.0) fL Plt Count 147 L (150-450) k/uL Neutrophils # 8.0 H (1.3-7.7) k/uL Lymphocytes # 0.5 L (1.0-4.8) k/uL Glucose (74-99) mg/dL POC Glucose (mg/dL) 138 H 128 H (75-99) mg/dL Alkaline Phosphatase (38-126) U/L Total Protein (6.3-8.2) g/dL Albumin (3.5-5.0) g/dL 06/28/16 06/28/16 06/28/16 Range/Units 05:10 06:13 07:28 RBC (4.30-5.90) m/uL Hgb (13.0-17.5) gm/dL Hct (39.0-53.0) % MCV (80.0-100.0) fL Plt Count (150-450) k/uL Neutrophils # (1.3-7.7) k/uL Lymphocytes # (1.0-4.8) k/uL Glucose 115 H (74-99) mg/dL POC Glucose (mg/dL) 102 H 126 H (75-99) mg/dL Alkaline Phosphatase 35 L (38-126) U/L Total Protein 5.5 L (6.3-8.2) g/dL Albumin 3.1 L (3.5-5.0) g/dL 06/28/16 Range/Units 07:57 RBC (4.30-5.90) m/uL Hgb (13.0-17.5) gm/dL Hct (39.0-53.0) % MCV (80.0-100.0) fL Plt Count (150-450) k/uL Neutrophils # (1.3-7.7) k/uL Lymphocytes # (1.0-4.8) k/uL Glucose (74-99) mg/dL POC Glucose (mg/dL) 139 H (75-99) mg/dL Alkaline Phosphatase (38-126) U/L Total Protein (6.3-8.2) g/dL Albumin (3.5-5.0) g/dL - Imaging and Cardiology Chest x-ray: report reviewed, image reviewed Assessment and Plan (1) Myocardial infarction Status: Acute (2) Coronary artery disease Status: Acute (3) Left ventricular dysfunction Status: Acute (4) Tobacco abuse Status: Acute (5) COPD (chronic obstructive pulmonary disease) Status: Acute Plan: 1. Continue aspirin, statin, Plavix, beta linda. 2. Continue amiodarone oral for atrial fibrillation prophylaxis. 3. Continue Norvasc for radial artery spasm 4. Wean O2 as tolerated. Continue incentive spirometry use. 5. Increase activity as tolerated. PT to follow. 6. Will DC pleural chest tubes 7. Hemoglobin 7.5 this morning, trending downward. Will add oral iron and vitamin C and continue to monitor. 8. GI/DVT prophylaxis. 9. Transfer out of ICU later today versus tomorrow depending on status. Time with Patient: Greater than 30
[2016-06-28] MEDS: AMIODARONE 200 MG TAB PO SCH ×2 (10:32→22:21)
[2016-06-28 10:40] LABS: Glucose,Whole Blood 140 mg/dL (75-99)
[2016-06-28 11:52] LABS: Glucose,Whole Blood 120 mg/dL (75-99)
--- NOTE | 2016-06-28 12:20 | P.PN ---
Subjective Date of service 06/28/2016. Progress note being dictated for Dr. Raymond. Interval history: This is a 65-year-old gentleman admitted with multivessel disease, status post CABG. Maintained on amiodarone drip, sinus rhythm. Stable CXR. Incentive spirometer 1999. Positive diet intake, denies nausea or vomiting. Complains of constipation, passing flatus. Hemoglobin 7.5. Chest tubes, art line, being discontinued. Current MAPs ranging 68-78. Objective - Vital Signs Vital signs: Vital Signs Temp 98.6 F 06/28/16 08:00 Pulse 77 06/28/16 11:00 Resp 17 06/28/16 11:00 BP 98/68 06/28/16 11:00 Pulse Ox 96 06/28/16 11:00 Intake & Output 06/27/16 06/28/16 06/28/16 18:59 06:59 18:59 Intake Total 1398.066 443.984 355.237 Output Total 667 875 20 Balance 731.066 -431.016 335.237 Weight 89.5 kg Intake: IV 372 279 104 LR 300 240 80 PRESSURE BAGS 72 39 24 Intake, IV Titration 726.066 44.984 11.237 Amount Amiodarone 450 mg In 518.800 Dextrose 5% in Water 250 ml @ 1 MG/MIN 34.53 mls/ hr IV .Q7H31M [facility] Rx#: [id number] Dextrose 5% in Water 100 100 ml @ 618 mls/hr IV .Q10M ONE with Amiodarone 150 mg Rx#:[id number] Dextrose 5% in Water 100 100 ml @ 618 mls/hr IV .Q10M ONE with Amiodarone 150 mg Rx#:[id number] Insulin Regular 100 unit 7.266 44.984 11.237 In Sodium Chloride 0.9% 100 ml @ Per Protocol IV .Q0M [facility] Rx#:[id number] Oral 300 120 240 Output: Chest Tube Drainage 160 90 20 Left Pleural 65 40 10 Mediastinal x 2 35 Right Pleural 60 50 10 Urine 507 785 Other: Voiding Method Indwelling Catheter Indwelling Catheter Indwelling Catheter # Voids 1 ABP, PAP, CO, CI - Last Documented Arterial Blood Pressure 91/45 Pulmonary Artery Pressure 17/7 Cardiac Output 8.0 Cardiac Index 3.9 - Exam PHYSICAL EXAM: VITAL SIGNS: As above GENERAL: [Sitting up in bed, no acute distress] HEENT: [Pupils equal conjunctiva normal.] NECK: [Supple, no JVD, RESPIRATORY EFFORT:[Normal] LUNGS: [Diminished, fine bibasilar crackles, no crackles, no wheezes,] CARDIOVASCULAR[regular S1 and S2, no murmurs rubs or gallops. Trace edema] GI: [Abdomen soft, nontender, nondistended, positive bowel sounds.] PSYCH: [Alert and oriented -3, mood and affect normal.] NEURO: No focal deficits - Labs CBC & Chem 7: 06/28/16 05:10 06/28/16 05:10 Labs: Abnormal Lab Results - Last 24 Hours (Table) 06/27/16 06/27/16 06/27/16 Range/Units 12:14 13:15 14:08 RBC (4.30-5.90) m/uL Hgb (13.0-17.5) gm/dL Hct (39.0-53.0) % MCV (80.0-100.0) fL Plt Count (150-450) k/uL Neutrophils # (1.3-7.7) k/uL Lymphocytes # (1.0-4.8) k/uL Glucose (74-99) mg/dL POC Glucose (mg/dL) 128 H 135 H 179 H (75-99) mg/dL Alkaline Phosphatase (38-126) U/L Total Protein (6.3-8.2) g/dL Albumin (3.5-5.0) g/dL 06/27/16 06/27/16 06/27/16 Range/Units 15:00 15:54 17:17 RBC (4.30-5.90) m/uL Hgb (13.0-17.5) gm/dL Hct (39.0-53.0) % MCV (80.0-100.0) fL Plt Count (150-450) k/uL Neutrophils # (1.3-7.7) k/uL Lymphocytes # (1.0-4.8) k/uL Glucose (74-99) mg/dL POC Glucose (mg/dL) 182 H 186 H 158 H (75-99) mg/dL Alkaline Phosphatase (38-126) U/L Total Protein (6.3-8.2) g/dL Albumin (3.5-5.0) g/dL 06/27/16 06/27/16 06/27/16 Range/Units 18:16 19:12 20:08 RBC (4.30-5.90) m/uL Hgb (13.0-17.5) gm/dL Hct (39.0-53.0) % MCV (80.0-100.0) fL Plt Count (150-450) k/uL Neutrophils # (1.3-7.7) k/uL Lymphocytes # (1.0-4.8) k/uL Glucose (74-99) mg/dL POC Glucose (mg/dL) 149 H 149 H 168 H (75-99) mg/dL Alkaline Phosphatase (38-126) U/L Total Protein (6.3-8.2) g/dL Albumin (3.5-5.0) g/dL 06/27/16 06/27/16 06/27/16 Range/Units 21:35 22:10 23:06 RBC (4.30-5.90) m/uL Hgb (13.0-17.5) gm/dL Hct (39.0-53.0) % MCV (80.0-100.0) fL Plt Count (150-450) k/uL Neutrophils # (1.3-7.7) k/uL Lymphocytes # (1.0-4.8) k/uL Glucose (74-99) mg/dL POC Glucose (mg/dL) 171 H 157 H 123 H (75-99) mg/dL Alkaline Phosphatase (38-126) U/L Total Protein (6.3-8.2) g/dL Albumin (3.5-5.0) g/dL 06/28/16 06/28/16 06/28/16 Range/Units 00:22 01:22 02:04 RBC (4.30-5.90) m/uL Hgb (13.0-17.5) gm/dL Hct (39.0-53.0) % MCV (80.0-100.0) fL Plt Count (150-450) k/uL Neutrophils # (1.3-7.7) k/uL Lymphocytes # (1.0-4.8) k/uL Glucose (74-99) mg/dL POC Glucose (mg/dL) 101 H 131 H 132 H (75-99) mg/dL Alkaline Phosphatase (38-126) U/L Total Protein (6.3-8.2) g/dL Albumin (3.5-5.0) g/dL 06/28/16 06/28/16 06/28/16 Range/Units 03:12 04:05 05:04 RBC (4.30-5.90) m/uL Hgb (13.0-17.5) gm/dL Hct (39.0-53.0) % MCV (80.0-100.0) fL Plt Count (150-450) k/uL Neutrophils # (1.3-7.7) k/uL Lymphocytes # (1.0-4.8) k/uL Glucose (74-99) mg/dL POC Glucose (mg/dL) 112 H 138 H 128 H (75-99) mg/dL Alkaline Phosphatase (38-126) U/L Total Protein (6.3-8.2) g/dL Albumin (3.5-5.0) g/dL 06/28/16 06/28/16 06/28/16 Range/Units 05:10 05:10 06:13 RBC 2.27 L (4.30-5.90) m/uL Hgb 7.5 L (13.0-17.5) gm/dL Hct 23.1 L (39.0-53.0) % MCV 101.5 H (80.0-100.0) fL Plt Count 147 L (150-450) k/uL Neutrophils # 8.0 H (1.3-7.7) k/uL Lymphocytes # 0.5 L (1.0-4.8) k/uL Glucose 115 H (74-99) mg/dL POC Glucose (mg/dL) 102 H (75-99) mg/dL Alkaline Phosphatase 35 L (38-126) U/L Total Protein 5.5 L (6.3-8.2) g/dL Albumin 3.1 L (3.5-5.0) g/dL 06/28/16 06/28/16 06/28/16 Range/Units 07:28 07:57 09:13 RBC (4.30-5.90) m/uL Hgb (13.0-17.5) gm/dL Hct (39.0-53.0) % MCV (80.0-100.0) fL Plt Count (150-450) k/uL Neutrophils # (1.3-7.7) k/uL Lymphocytes # (1.0-4.8) k/uL Glucose (74-99) mg/dL POC Glucose (mg/dL) 126 H 139 H 147 H (75-99) mg/dL Alkaline Phosphatase (38-126) U/L Total Protein (6.3-8.2) g/dL Albumin (3.5-5.0) g/dL 06/28/16 06/28/16 Range/Units 10:36 11:50 RBC (4.30-5.90) m/uL Hgb (13.0-17.5) gm/dL Hct (39.0-53.0) % MCV (80.0-100.0) fL Plt Count (150-450) k/uL Neutrophils # (1.3-7.7) k/uL Lymphocytes # (1.0-4.8) k/uL Glucose (74-99) mg/dL POC Glucose (mg/dL) 140 H 120 H (75-99) mg/dL Alkaline Phosphatase (38-126) U/L Total Protein (6.3-8.2) g/dL Albumin (3.5-5.0) g/dL Assessment and Plan Plan: 1. [Multivessel CAD, non-STEMI, status post CABG]. 2. [Chronic CHF, systolic dysfunction, with no acute exacerbation, history of Ischemic cardiomyopathy. 3. COPD with minimal exacerbation]. 4. [History of nicotine abuse]. 5. [Postoperative Atelectasis]. 6. [Postoperative anemia, to be expected]. 7. Proximal atrial fibrillation with RVR Plan: Continue on current medication regime , aspirin, Plavix, statin, beta linda , amiodarone , Colace, monitoring, and symptomatic treatment. Aggressive pulmonary toileting. Further recommendations to follow. The impression and plan of care has been dictated as directed. : I performed a H&P examination of this patient and discussed the same with the dictator. I agree with the dictator's note. Any additional findings/opinions/ etc. will be noted.
[2016-06-28 13:04] LABS: Glucose,Whole Blood 104 mg/dL (75-99)
--- NOTE | 2016-06-28 15:09 | PN ---
Mr. Mccormack is a 65-year-old male who presented with a myocardial infarction. His cardiac catheterization revealed triple-vessel disease coronary artery disease and he underwent coronary artery bypass grafting. He is doing quite well this morning. He continued to be in sinus mechanism with no evidence of recurrent atrial fibrillation. He has been ambulating without difficulty. Hemodynamically stable. He has no dizziness. No palpitation. No nausea. He continues to be on IV amiodarone and he has been switched to oral amiodarone. He is on aspirin, Lipitor 40 mg daily, Plavix 75 mg daily, metoprolol tartrate 12.5 mg twice a day, amlodipine 5 mg daily. PHYSICAL EXAMINATION: Blood pressure running in the 90s to 100 with a heart rate in the 70s. LUNGS: Clear. HEART: Regular rate and rhythm. S1, S2, no S3, no rub. Abdomen is soft, nontender. EXTREMITIES: Mild edema. Lab data revealed BUN and creatinine 20 and 0.6, potassium 4.3, hemoglobin of 7.3. IMPRESSION: 1. Status post coronary artery bypass grafting. 2. Paroxysmal atrial fibrillation, remains in sinus mechanism. 3. Prior history of smoking. 4. Ischemic cardiomyopathy. RECOMMENDATION: I will stop the amlodipine. I will initiate treatment with low-dose BROOKLYNN inhibitor because of the cardiomyopathy. Continue the rest of his medical regimen. He will be switched to oral amiodarone. If he has recurrent episode of atrial fibrillation, then anticoagulation will be needed.
--- NOTE | 2016-06-28 15:32 | P.PN ---
Subjective Principal diagnosis: Triple-vessel coronary artery disease and left ventricular dysfunction. 65-year-old male patient, a chronic smoker with a positive family history of coronary artery disease, presented with episodes of chest pain. Further investigation revealed an abnormal EKG and following that the patient came into the hospital where he had a cardiac catheterization that showed triple-vessel disease with subtotal occluded mid LAD and severely impaired LV function with an ejection fraction of 35%. The patient is being considered for coronary artery bypass surgery. Echocardiogram was also done that showed an ejection fraction of 35-40%. There was evidence of segmental wall motion abnormalities. Aortic root was dilated at 3.8 cm in size. Clinically the patient reports to be in a good state of health. He drinks alcohol every night around few glasses of liquor. No history of any delirium tremens. Denies being an alcoholic. The patient woke cigarettes since early childhood associate. He has a chronic congested cough. No silica sputum production. No pleurisy. No hemoptysis. He reports that he was in a good state of health and he was able to walk long distances incline couple of flights of stairs prior to this event without any major difficulties. No history of any DVT or pulmonary embolism. No swelling in lower extremities. Chest x-ray from this admission showed evidence of COPD. A bedside spirometry has not been done yet. No history of any childhood asthma. No hospitalization for any respiratory difficulties. Based on room air pulse ox is ranging between 91-93%. On 06/24/2016, the patient is stable. No significant chest pain. No shortness of breath. The patient was placed on systemic steroids. The FEV1 measurement was of a 86% of predicted. The patient is scheduled to undergo his coronary bypass surgery more afternoon. Hemodynamically stable. No other significant events otherwise. On 06/25/2016, patient is doing well, patient is being considered for CABG today. Presently no cough no wheezing no shortness of breath, and the patient is hemodynamically stable. On 06/26/2016, patient is postoperative day #1, patient had a quadruple coronary artery bypass grafting postoperative course was relatively uneventful, patient was extubated last night, and he continues to do relatively well. Patient is currently sitting up in the chair, and his pain seems to be fairly well controlled. He denies any shortness of breath no cough no wheezing. Compliant to very well with incentive spirometry. Hemoglobin is 10.3. Renal profile is normal. On 06/27/2016 patient is postoperative day #2, had a quadruple coronary artery bypass grafting continues to do relatively well. On examination today, patient was noted to have diffuse rhonchi and wheezes. Hence I recommended starting him back on Solu-Medrol. We will address the Solu-Medrol on a daily basis, and in the meantime we'll continue his updrafts. I have placed him on Xopenex. Since the patient had episodes of tachycardia earlier today. CBC showed hemoglobin of 8.0 WBC count of 6.3 rest of the labs are unremarkable. Reevaluated today on 06/28/2016, postoperative day #3, continues to do well, has some cough and wheezing, remains on bronchodilators. Objective - Vital Signs Vital signs: Vital Signs Temp 98.6 F 06/28/16 08:00 Pulse 80 06/28/16 13:41 Resp 17 06/28/16 11:00 BP 98/68 06/28/16 11:00 Pulse Ox 96 06/28/16 11:00 Intake & Output 06/27/16 06/28/16 06/28/16 18:59 06:59 18:59 Intake Total 1398.066 443.984 366.663 Output Total 667 875 20 Balance 731.066 -431.016 346.663 Weight 89.5 kg Intake: IV 372 279 104 LR 300 240 80 PRESSURE BAGS 72 39 24 Intake, IV Titration 726.066 44.984 22.663 Amount Amiodarone 450 mg In 518.800 Dextrose 5% in Water 250 ml @ 1 MG/MIN 34.53 mls/ hr IV .Q7H31M [facility] Rx#: [id number] Dextrose 5% in Water 100 100 ml @ 618 mls/hr IV .Q10M ONE with Amiodarone 150 mg Rx#:[id number] Dextrose 5% in Water 100 100 ml @ 618 mls/hr IV .Q10M ONE with Amiodarone 150 mg Rx#:[id number] Insulin Regular 100 unit 7.266 44.984 22.663 In Sodium Chloride 0.9% 100 ml @ Per Protocol IV .Q0M [facility] Rx#:[id number] Oral 300 120 240 Output: Chest Tube Drainage 160 90 20 Left Pleural 65 40 10 Mediastinal x 2 35 Right Pleural 60 50 10 Urine 507 785 Other: Voiding Method Indwelling Catheter Indwelling Catheter Indwelling Catheter # Voids 1 ABP, PAP, CO, CI - Last Documented Arterial Blood Pressure 91/45 Pulmonary Artery Pressure 17/7 Cardiac Output 8.0 Cardiac Index 3.9 - Exam Physical Exam: Revealed a 65-year-old in no distress. On nasal cannula, off mechanical ventilation. HEENT:[Neck is supple.] [No neck masses.] [No thyromegaly.] [No JVD.] Chest: [Rhonchi and wheezes noted bilaterally more so on forced expiratory maneuver..] Cardiac Exam: [Normal S1 and S2, no S3 gallop, no murmur.] Abdomen: [Soft, nontender, no megaly, no rebound, no guarding, normal bowel sounds.] Extremities: [No clubbing, no edema, no cyanosis.] Neurological Exam: [No focal neurologic deficit.] - Labs CBC & Chem 7: 06/28/16 05:10 06/28/16 05:10 Labs: Abnormal Lab Results - Last 24 Hours (Table) 06/27/16 06/27/16 06/27/16 Range/Units 15:54 17:17 18:16 RBC (4.30-5.90) m/uL Hgb (13.0-17.5) gm/dL Hct (39.0-53.0) % MCV (80.0-100.0) fL Plt Count (150-450) k/uL Neutrophils # (1.3-7.7) k/uL Lymphocytes # (1.0-4.8) k/uL Glucose (74-99) mg/dL POC Glucose (mg/dL) 186 H 158 H 149 H (75-99) mg/dL Alkaline Phosphatase (38-126) U/L Total Protein (6.3-8.2) g/dL Albumin (3.5-5.0) g/dL 06/27/16 06/27/16 06/27/16 Range/Units 19:12 20:08 21:35 RBC (4.30-5.90) m/uL Hgb (13.0-17.5) gm/dL Hct (39.0-53.0) % MCV (80.0-100.0) fL Plt Count (150-450) k/uL Neutrophils # (1.3-7.7) k/uL Lymphocytes # (1.0-4.8) k/uL Glucose (74-99) mg/dL POC Glucose (mg/dL) 149 H 168 H 171 H (75-99) mg/dL Alkaline Phosphatase (38-126) U/L Total Protein (6.3-8.2) g/dL Albumin (3.5-5.0) g/dL 06/27/16 06/27/16 06/28/16 Range/Units 22:10 23:06 00:22 RBC (4.30-5.90) m/uL Hgb (13.0-17.5) gm/dL Hct (39.0-53.0) % MCV (80.0-100.0) fL Plt Count (150-450) k/uL Neutrophils # (1.3-7.7) k/uL Lymphocytes # (1.0-4.8) k/uL Glucose (74-99) mg/dL POC Glucose (mg/dL) 157 H 123 H 101 H (75-99) mg/dL Alkaline Phosphatase (38-126) U/L Total Protein (6.3-8.2) g/dL Albumin (3.5-5.0) g/dL 06/28/16 06/28/16 06/28/16 Range/Units 01:22 02:04 03:12 RBC (4.30-5.90) m/uL Hgb (13.0-17.5) gm/dL Hct (39.0-53.0) % MCV (80.0-100.0) fL Plt Count (150-450) k/uL Neutrophils # (1.3-7.7) k/uL Lymphocytes # (1.0-4.8) k/uL Glucose (74-99) mg/dL POC Glucose (mg/dL) 131 H 132 H 112 H (75-99) mg/dL Alkaline Phosphatase (38-126) U/L Total Protein (6.3-8.2) g/dL Albumin (3.5-5.0) g/dL 06/28/16 06/28/16 06/28/16 Range/Units 04:05 05:04 05:10 RBC 2.27 L (4.30-5.90) m/uL Hgb 7.5 L (13.0-17.5) gm/dL Hct 23.1 L (39.0-53.0) % MCV 101.5 H (80.0-100.0) fL Plt Count 147 L (150-450) k/uL Neutrophils # 8.0 H (1.3-7.7) k/uL Lymphocytes # 0.5 L (1.0-4.8) k/uL Glucose (74-99) mg/dL POC Glucose (mg/dL) 138 H 128 H (75-99) mg/dL Alkaline Phosphatase (38-126) U/L Total Protein (6.3-8.2) g/dL Albumin (3.5-5.0) g/dL 06/28/16 06/28/16 06/28/16 Range/Units 05:10 06:13 07:28 RBC (4.30-5.90) m/uL Hgb (13.0-17.5) gm/dL Hct (39.0-53.0) % MCV (80.0-100.0) fL Plt Count (150-450) k/uL Neutrophils # (1.3-7.7) k/uL Lymphocytes # (1.0-4.8) k/uL Glucose 115 H (74-99) mg/dL POC Glucose (mg/dL) 102 H 126 H (75-99) mg/dL Alkaline Phosphatase 35 L (38-126) U/L Total Protein 5.5 L (6.3-8.2) g/dL Albumin 3.1 L (3.5-5.0) g/dL 06/28/16 06/28/16 06/28/16 Range/Units 07:57 09:13 10:36 RBC (4.30-5.90) m/uL Hgb (13.0-17.5) gm/dL Hct (39.0-53.0) % MCV (80.0-100.0) fL Plt Count (150-450) k/uL Neutrophils # (1.3-7.7) k/uL Lymphocytes # (1.0-4.8) k/uL Glucose (74-99) mg/dL POC Glucose (mg/dL) 139 H 147 H 140 H (75-99) mg/dL Alkaline Phosphatase (38-126) U/L Total Protein (6.3-8.2) g/dL Albumin (3.5-5.0) g/dL 06/28/16 06/28/16 Range/Units 11:50 13:01 RBC (4.30-5.90) m/uL Hgb (13.0-17.5) gm/dL Hct (39.0-53.0) % MCV (80.0-100.0) fL Plt Count (150-450) k/uL Neutrophils # (1.3-7.7) k/uL Lymphocytes # (1.0-4.8) k/uL Glucose (74-99) mg/dL POC Glucose (mg/dL) 120 H 104 H (75-99) mg/dL Alkaline Phosphatase (38-126) U/L Total Protein (6.3-8.2) g/dL Albumin (3.5-5.0) g/dL Assessment and Plan Plan: Impression: Status post CABG, postoperative day # 3 Acute presentation of myocardial infarction initially, Acute left ventricular dysfunction and ischemic cardiomyopathy History of underlying COPD severity of which is [id number]. History of tobacco dependence syndrome. Postoperative atelectasis Recommendation: Continue present treatment plan including usual cardiac meds Plavix statin and aspirin, bronchodilators, incentive spirometry, continue Solu- Medrol and Xopenex. We will continue to follow Time with Patient: Less than 30
[2016-06-28] MEDS: amLODIPine 2.5 MG TAB PO SCH (16:10)
[2016-06-28] MEDS: MULTIVITAMINS, THERA 1 EACH TAB PO SCH (16:16)
[2016-06-28] MEDS: CHOLECALCIFEROL 1,000 UNIT TAB PO SCH (16:16)
[2016-06-28 16:25] LABS: Hemoglobin A1C 5.3 % (4.2-6.1)
[2016-06-28 17:13] LABS: Glucose,Whole Blood 212 mg/dL (75-99)
[2016-06-28 17:15] LABS: Glucose,Whole Blood 161 mg/dL (75-99)
[2016-06-28] MEDS: INSULIN LISPRO (humaLOG) 300 UNIT/3 ML VIAL SQ SCH ×2 (18:35→21:29)
[2016-06-28] MEDS: SENNOSIDES-DOCUSATE SODIUM 1 EACH TAB PO SCH (21:22)
[2016-06-28 21:28] LABS: Glucose,Whole Blood 153 mg/dL (75-99)
[2016-06-28] MEDS: NICOTINE 14MG/24HR PATCH TRANSDERM SCH (21:28)
[2016-06-28] MEDS: INSULIN GLARGINE 100 UNIT/ML 10 ML VIAL SQ SCH (21:29)
[2016-06-29] MEDS: HYDROcodone/APAP 5-325MG 1 EACH TAB PO PRN ×3 (02:31→21:51)
[2016-06-29] MEDS: THIAMINE 100 MG TAB PO SCH (03:18)
[2016-06-29] MEDS: NITROGLYCERIN OINT 1 INCH/GM PACKET TOPICAL SCH (03:19)
[2016-06-29 05:29] LABS: Glucose,Whole Blood 164 mg/dL (75-99)
[2016-06-29 06:14] LABS: Basophils % (A) 0 %; CH 33.6; CHCM 33.2; Eosinophils % (A) 0 %; HCT 22.6 % (39.0-53.0); HDW 2.62; HGB 7.4 gm/dL (13.0-17.5); Luc % (Auto) 2; Lymphocytes # (A) 0.7 k/uL (1.0-4.8); Lymphocytes % (A) 6 %; MCH 33.5 pg (25.0-35.0); MCHC 32.9 g/dL (31.0-37.0); MCV 101.9 fL (80.0-100.0); Macrocytosis Slight; Mean Platelet Volume 8.4; Monocytes # (A) 0.6 k/uL (0-1.0); Monocytes % (A) 6 %; Neutrophils # (A) 9.6 k/uL (1.3-7.7); Neutrophils % (A) 86 %; RBC 2.22 m/uL (4.30-5.90); RDW 13.7 % (11.5-15.5); WBC 11.1 k/uL (3.8-10.6); WBC (Perox) 11.91
[2016-06-29 06:27] LABS: Anion Gap 8 mmol/L; Blood Urea Nitrogen 25 mg/dL (9-20); Calcium 8.6 mg/dL (8.4-10.2); Carbon Dioxide 25 mmol/L (22-30); Chloride 103 mmol/L (98-107); Glucose 145 mg/dL (74-99); Magnesium 2.4 mg/dL (1.6-2.3); Non-African American GFR(MDRD) >60 (>60 ml/min/1.73 sqM); Phosphorous 3.8 mg/dL (2.5-4.5); Potassium 4.6 mmol/L (3.5-5.1); Sodium 136 mmol/L (137-145)
[2016-06-29] MEDS: FERROUS SULFATE 325 MG TAB PO SCH (06:33)
[2016-06-29] MEDS: INSULIN LISPRO (humaLOG) 300 UNIT/3 ML VIAL SQ SCH ×4 (06:33→21:49)
--- NOTE | 2016-06-29 07:24 | XR ---
EXAMINATION TYPE: XR chest 2V DATE OF EXAM: 06/29/2016 6:55 AM COMPARISON: June 28, 2016 HISTORY: Shortness of breath TECHNIQUE: Frontal and lateral views of the chest are obtained. FINDINGS: Basilar chest tubes have been removed. There is no evidence for residual or pneumothorax. Scattered senescent parenchymal changes noted. Hyperinflation compatible with COPD. No evidence for infiltrate. No evidence for atelectasis. Heart size is stable. Mediastinal structures are stable and grossly unremarkable. No evidence for hilar prominence. Degenerative changes dorsal spine. IMPRESSION: 1. Removal of chest tubes without evidence for a pneumothorax or infiltrate.
[2016-06-29] MEDS: LEVALBUTEROL NEB 1.25 MG/3 ML AMP INHALATION SCH ×3 (08:42→20:08)
[2016-06-29] MEDS: VITAMIN A 10,000 UNIT CAPSULE PO SCH (09:08)
[2016-06-29] MEDS: AMIODARONE 200 MG TAB PO SCH ×2 (09:08→21:48)
[2016-06-29] MEDS: METOPROLOL TARTRATE 12.5 MG TAB PO SCH ×2 (09:09→21:50)
[2016-06-29] MEDS: PANTOPRAZOLE 40 MG TABLET PO SCH (09:09)
[2016-06-29] MEDS: CLOPIDOGREL 75 MG TAB PO SCH (09:09)
[2016-06-29] MEDS: ASCORBIC ACID 500 MG TAB PO SCH ×2 (09:09→21:48)
[2016-06-29] MEDS: NICOTINE 14MG/24HR PATCH TRANSDERM SCH (09:09)
[2016-06-29] MEDS: LISINOPRIL 2.5 MG TAB PO SCH (09:09)
[2016-06-29] MEDS: ASPIRIN 325 MG TAB PO SCH (09:09)
[2016-06-29] MEDS: ATORVASTATIN 40 MG TAB PO SCH (09:09)
[2016-06-29] MEDS: THIAMINE 100 MG/ML 2 ML VIAL IVP SCH (09:10)
[2016-06-29] MEDS: HEPARIN SODIUM,PORCINE 5,000 UNIT/ML 1 ML VIAL SQ SCH ×2 (09:10→16:59)
[2016-06-29] MEDS: methylPREDNISolone SOD SUCCI 40 MG/ML 1 ML VIAL IV SCH (09:11)
--- NOTE | 2016-06-29 11:41 | P.PN ---
Subjective Principal diagnosis: CABG This is a 65-year-old gentleman who presented to the hospital with a myocardial infarction. Cardiac catheterization revealed triple vessel coronary artery disease and patient underwent coronary artery bypass grafting surgery. He was seen and examined this morning, doing well overall. Denies any chest pain, breathing is stable. Remaining in normal sinus rhythm. No further episodes of atrial fibrillation have been noted. Reaching up to 3000 on his incentive spirometry. Hemoglobin 7.4 today. Objective - Vital Signs Vital signs: Vital Signs Temp 96.0 F L 06/29/16 08:00 Pulse 72 06/29/16 08:52 Resp 18 06/29/16 08:00 BP 132/65 06/29/16 08:00 Pulse Ox 94 L 06/29/16 04:00 Intake & Output 06/28/16 06/29/16 06/29/16 18:59 06:59 18:59 Intake Total 366.663 240 Output Total 565 0 Balance -198.337 0 240 Weight 88.9 kg Intake: IV 104 LR 80 PRESSURE BAGS 24 Intake, IV Titration 22.663 Amount Insulin Regular 100 unit 22.663 In Sodium Chloride 0.9% 100 ml @ Per Protocol IV .Q0M [facility] Rx#:[id number] Oral 240 240 Output: Chest Tube Drainage 20 Left Pleural 10 Right Pleural 10 Urine 545 0 Other: Voiding Method Indwelling Catheter Toilet Toilet # Voids 1 1 1 ABP, PAP, CO, CI - Last Documented Arterial Blood Pressure 91/45 Pulmonary Artery Pressure 17/7 Cardiac Output 8.0 Cardiac Index 3.9 - Exam PHYSICAL EXAMINATION: HEENT: Head is atraumatic, normocephalic. Pupils equal, round. Neck is supple. There is no elevated jugular venous pressure. HEART EXAMINATION: Heart S1, S2 normal. No murmur or gallop heard. CHEST EXAMINATION: Lungs are clear to auscultation and precussion. No chest wall tenderness is noted on palpation or with deep breathing. ABDOMEN: Soft, nontender. Bowel sounds are heard. No organomegaly noted. EXTREMITIES: 2+ peripheral pulses with trace evidence of peripheral edema and no calf tenderness noted. NEUROLOGIC patient is awake, alert and oriented -3. . - Labs CBC & Chem 7: 06/29/16 05:34 06/29/16 05:34 Labs: Abnormal Lab Results - Last 24 Hours (Table) 06/28/16 06/28/16 06/28/16 Range/Units 11:50 13:01 17:11 WBC (3.8-10.6) k/uL RBC (4.30-5.90) m/uL Hgb (13.0-17.5) gm/dL Hct (39.0-53.0) % MCV (80.0-100.0) fL Neutrophils # (1.3-7.7) k/uL Lymphocytes # (1.0-4.8) k/uL Sodium (137-145) mmol/L BUN (9-20) mg/dL Glucose (74-99) mg/dL POC Glucose (mg/dL) 120 H 104 H 212 H (75-99) mg/dL Magnesium (1.6-2.3) mg/dL 06/28/16 06/28/16 06/29/16 Range/Units 17:13 21:26 05:27 WBC (3.8-10.6) k/uL RBC (4.30-5.90) m/uL Hgb (13.0-17.5) gm/dL Hct (39.0-53.0) % MCV (80.0-100.0) fL Neutrophils # (1.3-7.7) k/uL Lymphocytes # (1.0-4.8) k/uL Sodium (137-145) mmol/L BUN (9-20) mg/dL Glucose (74-99) mg/dL POC Glucose (mg/dL) 161 H 153 H 164 H (75-99) mg/dL Magnesium (1.6-2.3) mg/dL 06/29/16 06/29/16 Range/Units 05:34 05:34 WBC 11.1 H (3.8-10.6) k/uL RBC 2.22 L (4.30-5.90) m/uL Hgb 7.4 L (13.0-17.5) gm/dL Hct 22.6 L (39.0-53.0) % MCV 101.9 H (80.0-100.0) fL Neutrophils # 9.6 H (1.3-7.7) k/uL Lymphocytes # 0.7 L (1.0-4.8) k/uL Sodium 136 L (137-145) mmol/L BUN 25 H (9-20) mg/dL Glucose 145 H (74-99) mg/dL POC Glucose (mg/dL) (75-99) mg/dL Magnesium 2.4 H (1.6-2.3) mg/dL Assessment and Plan (1) S/P CABG (coronary artery bypass graft) Status: Acute (2) Paroxysmal a-fib Status: Acute (3) Hx of nicotine dependence Status: Acute (4) Ischemic cardiomyopathy Status: Acute Plan: Cardiology's perspective, we'll continue patient on his current medications. He 's doing very well overall. Once he is discharged home from the hospital, a follow-up appointment will be made with Dr. Carbajal in the office post discharge. DNP note has been reviewed, I agree with a documented findings and plan of care. Patient was seen and examined.
[2016-06-29 12:06] LABS: Glucose,Whole Blood 127 mg/dL (75-99)
--- NOTE | 2016-06-29 12:16 | P.PN ---
Subjective This is a very pleasant 65-year-old male patient, a chronic smoker with a positive family history of coronary artery disease, presented with episodes of chest pain. Further investigation revealed an abnormal EKG and following that the patient came into the hospital where he had a cardiac catheterization that showed triple-vessel disease with subtotal occluded mid LAD and severely impaired LV function with an ejection fraction of 35%. The patient is being considered for coronary artery bypass surgery. Echocardiogram was also done that showed an ejection fraction of 35-40%. There was evidence of segmental wall motion abnormalities. Aortic root was dilated at 3.8 cm in size. Clinically the patient reports to be in a good state of health. He drinks alcohol every night around few glasses of liquor. No history of any delirium tremens. Denies being an alcoholic. 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 He has a chronic congested cough. No silica sputum production. No pleurisy. No hemoptysis. He reports that he was in a good state of health and he was able to walk long distances incline couple of flights of stairs prior to this event without any major difficulties. No history of any DVT or pulmonary embolism. No swelling in lower extremities. Chest x-ray from this admission showed evidence of COPD. A bedside spirometry has not been done yet. No history of any childhood asthma. No hospitalization for any respiratory difficulties. Based on room air pulse ox is ranging between 91-93%. On 06/24/2016, the patient is stable. No significant chest pain. No shortness of breath. The patient was placed on systemic steroids. The FEV1 measurement was of a 86% of predicted. The patient is scheduled to undergo his coronary bypass surgery more afternoon. Hemodynamically stable. No other significant events otherwise. On 06/25/2016, patient is doing well, patient is being considered for CABG today. Presently no cough no wheezing no shortness of breath, and the patient is hemodynamically stable. On 06/26/2016, patient is postoperative day #1, patient had a quadruple coronary artery bypass grafting postoperative course was relatively uneventful, patient was extubated last night, and he continues to do relatively well. Patient is currently sitting up in the chair, and his pain seems to be fairly well controlled. He denies any shortness of breath no cough no wheezing. Compliant to very well with incentive spirometry. Hemoglobin is 10.3. Renal profile is normal. On 06/27/2016 patient is postoperative day #2, had a quadruple coronary artery bypass grafting continues to do relatively well. On examination today, patient was noted to have diffuse rhonchi and wheezes. Hence I recommended starting him back on Solu-Medrol. We will address the Solu-Medrol on a daily basis, and in the meantime we'll continue his updrafts. I have placed him on Xopenex. Since the patient had episodes of tachycardia earlier today. CBC showed hemoglobin of 8.0 WBC count of 6.3 rest of the labs are unremarkable. Reevaluated today on 06/28/2016, postoperative day #3, continues to do well, has some cough and wheezing, remains on bronchodilators. The patient is seen again today 06/29/2016 out on the selective care unit. This is postoperative day #4. He is awake and alert in no acute distress. He denies any worsening shortness of breath, cough or congestion. He is doing excellent with his incentive spirometer and cough and deep breathing exercises. No significant wheezing noted. Today's chest x-ray is stable. His chest tubes have been removed. There is no evidence of pneumothorax or infiltrate. His hemoglobin is trending down currently at 7.4. No dizziness or lightheadedness. Objective - Vital Signs Vital signs: Vital Signs Temp 96.0 F L 06/29/16 08:00 Pulse 72 06/29/16 08:52 Resp 18 06/29/16 08:00 BP 132/65 06/29/16 08:00 Pulse Ox 94 L 06/29/16 04:00 Intake & Output 06/28/16 06/29/16 06/29/16 18:59 06:59 18:59 Intake Total 366.663 240 Output Total 565 0 Balance -198.337 0 240 Weight 88.9 kg Intake: IV 104 LR 80 PRESSURE BAGS 24 Intake, IV Titration 22.663 Amount Insulin Regular 100 unit 22.663 In Sodium Chloride 0.9% 100 ml @ Per Protocol IV .Q0M RACHEL Rx#:[id number] Oral 240 240 Output: Chest Tube Drainage 20 Left Pleural 10 Right Pleural 10 Urine 545 0 Other: Voiding Method Indwelling Catheter Toilet Toilet # Voids 1 1 1 ABP, PAP, CO, CI - Last Documented Arterial Blood Pressure 91/45 Pulmonary Artery Pressure 17/7 Cardiac Output 8.0 Cardiac Index 3.9 - Exam GENERAL EXAM: Alert, active, comfortable in no apparent distress. HEAD: Normocephalic. EYES: Normal reaction of pupils, equal size. NOSE: Clear with pink turbinates. THROAT: No erythema or exudates. NECK: No masses, no JVD. CHEST: Sternal dressing remains dry and intact. LUNGS: Equal air entry with faint end expiratory wheeze, crackles in the posterior bases. CVS: S1 and S2 normal with no audible murmurs, regular rhythm. ABDOMEN: No hepatosplenomegaly, normal bowel sounds, no guarding or rigidity. Extremities: There is no significant peripheral edema. No clubbing, no cyanosis. Peripheral pulses are intact. - Labs CBC & Chem 7: 06/29/16 05:34 06/29/16 05:34 Labs: Abnormal Lab Results - Last 24 Hours (Table) 06/28/16 06/28/16 06/28/16 Range/Units 13:01 17:11 17:13 WBC (3.8-10.6) k/uL RBC (4.30-5.90) m/uL Hgb (13.0-17.5) gm/dL Hct (39.0-53.0) % MCV (80.0-100.0) fL Neutrophils # (1.3-7.7) k/uL Lymphocytes # (1.0-4.8) k/uL Sodium (137-145) mmol/L BUN (9-20) mg/dL Glucose (74-99) mg/dL POC Glucose (mg/dL) 104 H 212 H 161 H (75-99) mg/dL Magnesium (1.6-2.3) mg/dL 06/28/16 06/29/16 06/29/16 Range/Units 21:26 05:27 05:34 WBC 11.1 H (3.8-10.6) k/uL RBC 2.22 L (4.30-5.90) m/uL Hgb 7.4 L (13.0-17.5) gm/dL Hct 22.6 L (39.0-53.0) % MCV 101.9 H (80.0-100.0) fL Neutrophils # 9.6 H (1.3-7.7) k/uL Lymphocytes # 0.7 L (1.0-4.8) k/uL Sodium (137-145) mmol/L BUN (9-20) mg/dL Glucose (74-99) mg/dL POC Glucose (mg/dL) 153 H 164 H (75-99) mg/dL Magnesium (1.6-2.3) mg/dL 06/29/16 Range/Units 05:34 WBC (3.8-10.6) k/uL RBC (4.30-5.90) m/uL Hgb (13.0-17.5) gm/dL Hct (39.0-53.0) % MCV (80.0-100.0) fL Neutrophils # (1.3-7.7) k/uL Lymphocytes # (1.0-4.8) k/uL Sodium 136 L (137-145) mmol/L BUN 25 H (9-20) mg/dL Glucose 145 H (74-99) mg/dL POC Glucose (mg/dL) (75-99) mg/dL Magnesium 2.4 H (1.6-2.3) mg/dL Assessment and Plan Plan: Impression: Status post CABG, postoperative day # 4 Acute presentation of myocardial infarction initially, Acute left ventricular dysfunction and ischemic cardiomyopathy History of underlying COPD severity of which is [id number]. History of tobacco dependence syndrome. Postoperative atelectasis Plan: The patient was seen and evaluated by Dr. Sepulveda. His chest x-ray and labs were reviewed. The patient is doing well from the pulmonary and critical care standpoint. We will continue to decrease his IV Solu-Medrol. We'll continue to increase his activity as tolerated. We will continue with the incentive spirometer and cough and deep breathing exercises. We will continue to follow and make further recommendations based on his clinical status.
--- NOTE | 2016-06-29 12:22 | P.PN ---
Progress Note - Text CV Surgery Nursing Principal diagnosis: Triple vessel coronary artery disease, occluded collateralized left anterior descending artery with evidence of an old anterior wall myocardial infarction, moderate left ventricular dysfunction, tobacco abuse with chronic obstructive pulmonary disease, strong family history. POD #4 multiple arterial quadruple coronary artery bypass grafting using the left internal mammary artery to the left anterior descending artery, left radial artery from the aorta sequentially to the first obtuse marginal artery in a [id number] fashion. Then to the second obtuse marginal artery in an end- to-side fashion, reverse saphenous vein graft from the aorta to the posterior descending artery. Endoscopic harvesting of the left greater saphenous vein. Endoscopic harvesting of the left radial artery. Intraoperative transesophageal echocardiogram and epi-aortic scanning. Patient awake and alert, no distress noted, no specific complaints. The patient is currently sitting up to bedside chair. The patient remains feeling somewhat frustrated due to no bowel movement since surgery. Vital Signs: Afebrile Vital Signs - 24 hr 06/28/16 06/28/16 06/28/16 09:00 10:00 11:00 Temperature Pulse Rate 75 76 77 Pulse Rate [ Roof Promenade Tile Setter ] Respiratory 19 17 17 Rate Blood Pressure 88/60 98/68 Blood Pressure [Left Arm] O2 Sat by Pulse 95 95 96 Oximetry 06/28/16 06/28/16 06/28/16 12:00 13:00 13:31 Temperature Pulse Rate 92 74 79 Pulse Rate [ Roof Promenade Tile Setter ] Respiratory 23 15 Rate Blood Pressure 91/61 97/57 Blood Pressure [Left Arm] O2 Sat by Pulse 96 97 Oximetry 06/28/16 06/28/16 06/28/16 13:41 14:00 15:00 Temperature Pulse Rate 80 81 76 Pulse Rate [ Roof Promenade Tile Setter ] Respiratory 17 25 H Rate Blood Pressure 103/72 109/65 Blood Pressure [Left Arm] O2 Sat by Pulse 95 98 Oximetry 06/28/16 06/28/16 06/28/16 15:40 16:00 18:00 Temperature 97.8 F Pulse Rate 79 75 Pulse Rate [ Roof Promenade Tile Setter ] Respiratory 15 18 Rate Blood Pressure 110/68 93/58 Blood Pressure [Left Arm] O2 Sat by Pulse 97 98 98 Oximetry 06/28/16 06/28/16 06/28/16 18:53 19:00 19:10 Temperature Pulse Rate 71 70 76 Pulse Rate [ Roof Promenade Tile Setter ] Respiratory 13 Rate Blood Pressure 103/67 Blood Pressure [Left Arm] O2 Sat by Pulse 98 Oximetry 06/28/16 06/28/16 06/29/16 20:00 21:00 00:00 Temperature 98.1 F 97.5 F L Pulse Rate 73 72 Pulse Rate [ 63 Roof Promenade Tile Setter ] Respiratory 19 75 H 16 Rate Blood Pressure 96/61 104/63 Blood Pressure 110/72 [Left Arm] O2 Sat by Pulse 95 Oximetry 06/29/16 04:00 Temperature 97.8 F Pulse Rate Pulse Rate [ 70 Roof Promenade Tile Setter ] Respiratory 16 Rate Blood Pressure Blood Pressure 96/61 [Left Arm] O2 Sat by Pulse 94 L Oximetry Labs: Short CBC 06/29/16 Range/Units 05:34 WBC 11.1 H (3.8-10.6) k/uL Hgb 7.4 L (13.0-17.5) gm/dL Hct 22.6 L (39.0-53.0) % Plt Count 213 (150-450) k/uL Neutrophils # 9.6 H (1.3-7.7) k/uL BMP 06/29/16 05:34 Sodium 136 L Potassium 4.6 Chloride 103 Carbon Dioxide 25 BUN 25 H Creatinine 0.70 Glucose 145 H Calcium 8.6 Microbiology 06/24/16 11:48 Urine,Voided Urine Culture - Final Lungs: Essentially clear throughout, diminished bilateral bases. Respirations are unlabored. O2 sat: 94% on room air. I/S: 2500 mL, reviewed with the patient the importance of using his incentive spirometry every hour while awake. The patient did give a good return demonstration on his incentive spirometry. Heart: S1S2, regular rhythm and rate, negative for S3, gallop or murmur. Remote telemetry showing normal sinus rhythm heart rate 71. Sternum stable, chest incision clean with silverlon dressing clean and dry. Heart hugger in place, the patient is demonstrating appropriate use of his heart hugger. Left arm incisions clean dry and well approximated, positive palpable ulnar pulse. Left leg incisions clean and dry and well approximated. No drainage noted. Knee-high ALLISON hose and sequential compression devices in place to bilateral lower extremity Ike. Abdomen: Soft, Positive bowel sounds present in all 4 quadrants, patient is complaining of constipation. CBGs: 104-164 mg/dL in the last 24 hours. U/O: Adequate, clear urine output. 24 hr Total: Intake & Output 06/27/16 06/28/16 06/29/16 06/30/16 06:59 06:59 06:59 06:59 Intake Total 3863.007 1842.050 366.663 Output Total 2571 1542 565 Balance 1292.007 300.050 -198.337 Weight 85 kg 89.5 kg 88.9 kg Active Medications Hydrocodone Bitart/Acetaminophen ([place] 5-325) 2 each PO Q4HR PRN PRN Reason: Severe Pain Last Admin: 06/29/16 02:31 Dose: 2 each Hydrocodone Bitart/Acetaminophen ([place] 5-325) 1 each PO Q4HR PRN PRN Reason: Moderate Pain Last Admin: 06/27/16 21:29 Dose: 1 each Albuterol/Ipratropium (Duoneb 0.5 Mg-3 Mg/3 Ml Soln) 3 ml INHALATION RT-Q2H PRN PRN Reason: Shortness Of Breath Or Wheezing Amiodarone HCl (Cordarone) 400 mg PO BID REPLACED BY [facility] Last Admin: 06/28/16 22:21 Dose: 400 mg Amlodipine Besylate (Norvasc) 2.5 mg PO 1600 REPLACED BY [facility] Last Admin: 06/28/16 16:10 Dose: 2.5 mg Ascorbic Acid (Vitamin C) 500 mg PO BID REPLACED BY [facility] Last Admin: 06/28/16 21:22 Dose: 500 mg Aspirin (Aspirin) 325 mg PO DAILY REPLACED BY [facility] Last Admin: 06/28/16 08:11 Dose: 325 mg Atorvastatin Calcium (Lipitor) 40 mg PO DAILY REPLACED BY [facility] Last Admin: 06/28/16 08:12 Dose: 40 mg Bisacodyl (Dulcolax) 10 mg RECTAL DAILY PRN PRN Reason: Constipation Cholecalciferol (Vitamin D3) 1,000 unit PO DAILY@1200 REPLACED BY [facility] Last Admin: 06/28/16 16:16 Dose: 1,000 unit Clopidogrel Bisulfate (Plavix) 75 mg PO DAILY REPLACED BY [facility] Last Admin: 06/28/16 08:12 Dose: 75 mg Docusate Sodium (Colace) 100 mg PO DAILY PRN PRN Reason: Constipation Last Admin: 06/26/16 15:48 Dose: 100 mg Ferrous Sulfate (Feosol) 325 mg PO BID-W/MEALS REPLACED BY [facility] Last Admin: 06/29/16 06:33 Dose: 325 mg Heparin Sodium (Porcine) (Heparin) 5,000 unit SQ Q8HR REPLACED BY [facility] Last Admin: 06/28/16 23:30 Dose: 5,000 unit Insulin Glargine (Lantus) 15 unit SQ HS REPLACED BY [facility] Last Admin: 06/28/16 21:29 Dose: 15 unit Insulin Human Lispro (Humalog) 0 unit SQ ACHS REPLACED BY [facility] PRN Reason: Protocol Last Admin: 06/29/16 06:33 Dose: 3 unit Levalbuterol HCl (Xopenex Nebulized) 1.25 mg INHALATION RT-TID REPLACED BY [facility] Last Admin: 06/28/16 18:51 Dose: 1.25 mg Lisinopril (Zestril) 2.5 mg PO DAILY REPLACED BY [facility] Magnesium Hydroxide (Milk Of Magnesia) 2,400 mg PO BID PRN PRN Reason: Constipation Last Admin: 06/28/16 13:09 Dose: 2,400 mg Methylprednisolone Sodium Succinate (Solu-Medrol) 40 mg IV Q8HR REPLACED BY [facility] Last Admin: 06/28/16 23:30 Dose: 40 mg Metoprolol Tartrate (Lopressor) 12.5 mg PO BID REPLACED BY [facility] Last Admin: 06/28/16 21:22 Dose: 12.5 mg Miscellaneous Information (Magnesium Per Protocol) 1 each MISCELLANE DAILY PRN ; Protocol PRN Reason: Per Protocol Miscellaneous Information (Potassium Per Protocol) 1 each MISCELLANE DAILY PRN ; Protocol PRN Reason: Per Protocol Multivitamins (Theragran) 1 each PO DAILY@1200 REPLACED BY [facility] Last Admin: 06/28/16 16:16 Dose: 1 each Nicotine (Habitrol 14mg/24hr Patch) 1 patch TRANSDERM DAILY REPLACED BY [facility] Last Admin: 06/28/16 21:28 Dose: 1 patch Ondansetron HCl (Zofran) 4 mg IVP Q6HR PRN PRN Reason: Nausea And Vomiting Pantoprazole Sodium (Protonix) 40 mg PO DAILY REPLACED BY [facility] Senna/Docusate Sodium (Senokot-S) 2 each PO HS REPLACED BY [facility] Last Admin: 06/28/16 21:22 Dose: 2 each Sodium Chloride (Saline Flush) 10 ml IV BID REPLACED BY [facility] Last Admin: 06/28/16 21:23 Dose: 10 ml Thiamine HCl (Vitamin B-1) 100 mg IVP DAILY REPLACED BY [facility] Last Admin: 06/28/16 08:12 Dose: 100 mg Vitamin A (Vitamin A) 50,000 unit PO DAILY RACHEL Last Admin: 06/28/16 08:05 Dose: 50,000 unit Plan: 1. Continue aspirin, statin, Plavix, beta linda. 2. Continue amiodarone oral for atrial fibrillation prophylaxis. 3. Continue Norvasc for radial artery spasm prevention 4. Continue incentive spirometry use every hour while awake. 5. Increase activity as tolerated. PT to follow. 6. GI/DVT prophylaxis continue knee-high ALLISON hose and sequential compression devices. 7. Discharge planning in place possible discharge over the weekend to [facility]. 8. Patient will be given a Dulcolax suppository today for his complaints of constipation. 9. Discontinue Solu-Medrol.
[2016-06-29] MEDS: CHOLECALCIFEROL 1,000 UNIT TAB PO SCH (12:56)
[2016-06-29] MEDS: MULTIVITAMINS, THERA 1 EACH TAB PO SCH (12:56)
[2016-06-29 14:24] VITALS: BMI 27.3
--- NOTE | 2016-06-29 14:50 | P.DS ---
Providers Date of admission: 06/22/16 13:31 Attending physician: Sidney Zazueta Consults: 06/22/16 16:43 Consult Physician Routine Consulting Provider: Shaggy Mcpherson Consult Reason/Comments: cabg Do you want consulting provider notified?: Yes, Notify in am 06/23/16 08:01 Consult Physician Routine Consulting Provider: Mar Martinez Consult Reason/Comments: cabg Do you want consulting provider notified?: Yes, Notify in am 06/24/16 11:06 Consult Anesthesia Routine Consulting Provider: Anesthesia,Services Consult Reason/Comments: Cardiac Surgery Pre-Op 06/25/16 17:47 Consult Physician Routine Consulting Provider: Preston Lazar Consult Reason/Comments: medical management Do you want consulting provider notified?: Already Contacted Primary care physician: Ayush Mauro [facility] Course: FINAL DIAGNOSIS: 1.[Triple vessel coronary artery disease, occluded collateralized left anterior descending coronary artery.] 2.[Anterior wall myocardial infarction, non-STEMI this admission] 3.[Moderate left ventricular dysfunction, with an ejection fraction of 35-40%] 4.[Tobacco abuse] 5.[Chronic obstructive pulmonary disease] 6.[Postoperative paroxysmal atrial fibrillation] PRINCIPAL PROCEDURE: 1.[Selective right and left coronary artery angiographically.] 3.[Multiple arterial quadruple coronary artery bypass grafting using the left internal mammary artery to the left anterior descending coronary artery, left radial artery from the aorta sequentially to the first obtuse marginal coronary artery in a [id number] fashion, then placed to the second obtuse marginal coronary artery in an end-to-side fashion, and a reverse greater saphenous vein graft placed to the posterior descending coronary artery.] 2.[Endoscopic harvesting of the left greater saphenous vein.] 4.[Endoscopic harvesting of the left radial artery.] 5.[Intraoperative transesophageal echocardiogram and epi-aortic scanning.] HISTORY OF PRESENT ILLNESS: [This is a 65-year-old gentleman who is followed by Dr. Ayush Mauro on an outpatient basis. On 06/21/2016 the patient presented to Dr. Mauro's office with complaints of chest pain which she has been having off-and-on for the past 2 or 3 weeks. A 12-lead EKG was completed and troponins were drawn in the office. Dr. Mauro's office called the patient on 06/22/2016 and the patient was told to present to the emergency department. The patient presented to the emergency department here at [facility] complaints of with mild chest pressure. He did have positive troponins as high as 0.155 ng/mL, and his 12-lead EKG demonstrated elevation of the ST segment in V2 and V3 with T-wave inversion in aVL and V3 through V6. Due to his presenting symptoms, positive troponins and EKG changes he was evaluated by Dr. Carbajal from cardiology. The patient was subsequently admitted to the hospital for further evaluation and workup.] HOSPITAL COURSE:[On 06/22/2016 the patient was admitted to the hospital and after obtaining consent the patient underwent an urgent right and left coronary artery angiographically which showed a 99% stenosis to his diagonal coronary artery, a 99% stenosis to his circumflex coronary artery, a 60% to 70% stenosis to his mid segment of his right coronary artery, and an 80% stenosis to his distal right coronary artery. The patient also underwent a 2-D echocardiogram which demonstrated mild mitral valve regurgitation, mild tricuspid valve regurgitation, and an overall left ventricular systolic function to be moderately impaired, with an ejection fraction of 35-40%. The above-mentioned studies were reviewed with the patient by Dr. Carbajal and by Dr. Montes and an urgent coronary artery bypass grafting surgery was recommended. After obtaining consent the patient underwent an urgent multiple arterial quadruple coronary artery bypass grafting using the left internal mammary artery to the left anterior descending coronary artery, left radial artery from the aorta sequentially to the first obtuse marginal coronary artery in a [id number]-[id number] fashion, then placed to the second obtuse marginal coronary artery in an end-to- side fashion, and a reverse greater saphenous vein graft placed to the posterior descending coronary artery. Endoscopic harvesting of the left greater saphenous vein, endoscopic harvesting of the left radial artery, and intraoperative transesophageal echocardiogram and epi-aortic scanning. The patient was subsequently transferred to the cardiovascular intensive care unit where he was recovered, monitored hemodynamically, and where he progressed cardiac rehabilitation phase 1. The patient did have an episode of postoperative paroxysmal atrial fibrillation which was treated accordingly. He was subsequently transferred to [address] [place] [id number] for further monitoring and rehabilitation.] COMPLICATIONS: [His postoperative period was complicated by some paroxysmal atrial fibrillation which was treated accordingly.] CONSULTATIONS: 1.[Dr. Carbajal for cardiology management] 2.[Dr. Martinez for pulmonary and ventilator management] 3.[Dr. Raymond for medical management] DISCHARGE INSTRUCTIONS: 1. No driving for 4 weeks, or until physician gives their ok. 2. The patient should sleep in their own bed, no medical bed needed, when discharged home. 3. Stairs are not an issue. If the bedroom is upstairs, it is advised that the patient go up at night and down in the morning for the first week. Go slowly, using handrail and take 1 step at a time. 4. ALLISON hose are to be worn for 30 days or until physician discontinues. 5. Heart hugger is to be worn 100% of the time until physician discontinues.( excepet when showering) 6. No lifting, pushing, or pulling more than 10 pounds for 12 weeks. The physician will advise of any restriction changes. 7. The patient is expected to continue the prescribed walking program. 8. Continue pain control per as needed orders. 9. Continue with incentive spirometry and splinting/heart hugger until otherwise directed by the physician. 10. Must shower daily using liquid antibacterial soap and a separate white washcloth for each individual incision. 11. Please remove Silverlon chest dressing on 07/03/2016 with routine sternal incision care thereafter. 12. Physical therapy and occupational therapy to evaluate and treat. Extended-care facility: SERVICES FOR POST-OP SURGICAL PATIENTS WITH THE FOLLOWING: Coronary Artery Bypass Surgery (CABG), Mitral Valve Replacement/Repair ( MVR), Aortic Valve Replacement/Repair (AVR) RN TO CONTINUE EDUCATION FROM ``ROAD TO A HEALTH HEART PATIENT EDUCATION MANUAL (GIVEN TO PATIENT IN THE HOSPITAL) MEDICATION RECONCILIATION WITH EDUCATION NEEDED ON FIRST HOME VISIT EMPHASIZE IMPORTANCE OF WEARING BREAST SUPPORT/HEART HUGGER ENCOURAGE USE OF INCENTIVE SPIROMETER 10 X EVERY HOUR WHILE AWAKE ENCOURAGE UTILIZATION OF LOWER EXTREMITY COMPRESSION STOCKINGS/ALLISON HOSE and ELEVATE LEGS ABOVE LEVEL OF HEART WHILE AT REST. ENCOURAGE AMBULATION 3-5x/day INCREASING TOLERATES, WHILE AVOID EXTREMES IN TEMPERATURE FREQUENCY: RN TO OPEN THE PATIENT WITHIN 24 HOURS OF DISCHARGE FROM THE HOSPITAL WITH TELEHEALTH INSTALLED AT [facility] [place], RN TO VISIT 2-3 X A WEEK FOR 4 WEEKS ESTABLISHED BY PATIENT NEEDS. REMOVAL OF SUTURES: NURSING SERVICES TO REMOVE SUTURES TWO WEEKS POST SURGICAL DATE 07/09/2016. If any questions regarding suture removal please call the office at [phone]. LABORATORY: CBC, CMP TO BE DRAWN ON THE THIRD DAY at [facility], 07/04/2016 (RAN STAT) FAX RESULTS TO [phone]. TELEHEALTH PARAMETERS: WEIGHT: NOTIFY MD OF WEIGHT GAIN OF 2 LBS IN 24 HOURS OR 5 LBS IN ONE WEEK HR: NOTIFY MD OF HR <55 BPM OR HR>100 BPM BP: NOTIFY MD IF BP <90/55 OR BP>140/100 O2 SAT: NOTIFY MD IF PO2<93% ON ROOM AIR SEND HEALTH REPORTS TO TIN ASSORTER AND CARDIOVASCULAR SURGEON THE FIRST WEEK OF CARE AND THEN BI-WEEKLY. PLEASE ADDITIONALLY COMMUNICATE ANY ABNORMALS AND NEW FINDINGS TO THE SURGEONS OFFICE [phone]. Patient Condition at Discharge: Good Plan - Discharge Summary New Discharge Prescriptions: Amiodarone [Cordarone] 200 mg PO BID #35 tab Aspirin 325 mg PO ONCE #30 tab Atorvastatin [Lipitor] 40 mg PO DAILY #30 tab Clopidogrel [Plavix] 75 mg PO DAILY #30 tab Docusate [Colace] 100 mg PO DAILY PRN #30 cap PRN Reason: Constipation HYDROcodone/APAP 5-325MG [[place] 5-325] 1 - 2 tab PO Q6HR PRN #30 tab PRN Reason: Moderate Pain Lisinopril [Zestril] 2.5 mg PO DAILY #30 tab Metoprolol Tartrate [Lopressor] 12.5 mg PO BID #30 tab Nicotine 14Mg/24Hr Patch [Habitrol] 1 patch TRANSDERM DAILY #30 patch Pantoprazole [Protonix] 40 mg PO DAILY #30 tablet. amLODIPine [Norvasc] 2.5 mg PO 1600 #30 tab Discharge Medication List Cholecalciferol [Vitamin D3] 1,000 unit PO DAILY 06/22/16 [History] Multivitamins, Thera [Multivitamin] 1 tab PO DAILY 06/22/16 [History] Vitamin B Complex 1 cap PO DAILY 06/22/16 [History] HYDROcodone/APAP 5-325MG [[place] 5-325] 1 - 2 tab PO Q6HR PRN #30 tab 06/29/16 [ Rx] Vitamin A 50,000 unit PO DAILY capsule 06/29/16 [Rx] Amiodarone [Cordarone] 200 mg PO BID #35 tab 06/30/16 [Rx] Aspirin 325 mg PO ONCE #30 tab 06/30/16 [Rx] Atorvastatin [Lipitor] 40 mg PO DAILY #30 tab 06/30/16 [Rx] Clopidogrel [Plavix] 75 mg PO DAILY #30 tab 06/30/16 [Rx] Docusate [Colace] 100 mg PO DAILY PRN #30 cap 06/30/16 [Rx] Lisinopril [Zestril] 2.5 mg PO DAILY #30 tab 06/30/16 [Rx] Metoprolol Tartrate [Lopressor] 12.5 mg PO BID #30 tab 06/30/16 [Rx] Nicotine 14Mg/24Hr Patch [Habitrol] 1 patch TRANSDERM DAILY #30 patch 06/30/16 [ Rx] Pantoprazole [Protonix] 40 mg PO DAILY #30 tablet. 06/30/16 [Rx] amLODIPine [Norvasc] 2.5 mg PO 1600 #30 tab 06/30/16 [Rx] Follow up Appointment(s)/Referral(s): Leonor Carbajal MD [STAFF PHYSICIAN] - 07/05/16 4:00 pm Sidney Zazueta MD [STAFF PHYSICIAN] - 07/20/16 11:30 am Paulina Milligan PAC [REFERRING] - 07/06/16 2:00 pm [facility], [NON-STAFF] - As Needed Mar Martinez MD [STAFF PHYSICIAN] - 07/23/16 2:15 pm Ambulatory/Diagnostic Orders: Complete Blood Count w/diff [LAB.AMB] Time Frame: 3 Days, Facility: [facility], Location: Laboratory [facility] Comprehensive Metabolic Panel [LAB.AMB] Time Frame: 3 Days, Facility: [facility], Location: Laboratory [facility] Patient Instructions/Handouts: After Heart Catheterization - Frame Straightener, Left Heart Catheterization (DC), Coronary Artery Bypass Graft (DC) Discharge Disposition: TRANSFER TO SNF/F
[2016-06-29] MEDS ORDERED: amLODIPine 2.5 MG TAB PO SCH (16:00)
[2016-06-29 16:49] LABS: Glucose,Whole Blood 138 mg/dL (75-99)
[2016-06-29] MEDS: amLODIPine 2.5 MG TAB PO SCH (16:59)
[2016-06-29 20:54] LABS: Glucose,Whole Blood 146 mg/dL (75-99)
[2016-06-29 21:30] VITALS: RESP 16
[2016-06-29] MEDS: INSULIN GLARGINE 100 UNIT/ML 10 ML VIAL SQ SCH (21:49)
[2016-06-29] MEDS: SENNOSIDES-DOCUSATE SODIUM 1 EACH TAB PO SCH (22:02)
--- NOTE | 2016-06-29 22:58 | P.PN ---
Subjective Date of service 06/29/2016 Progress note being dictated for Dr. Raymond. Interval history:This is a 65-year-old gentleman admitted with multivessel disease, status post CABG. continues to do well, ambulating in hallway, tolerating increase in exertion well. Incentive spirometer 2500 to 3000. Diet intake improving with blood sugars controlled, ranging 120s to 160s. Telemetry sinus rhythm. Denies chest pain, palpitations or increasing shortness of breath. Hemoglobin 7.4. Chest x-ray stable. Objective - Vital Signs Vital signs: Vital Signs Temp 97.0 F L 06/29/16 12:00 Pulse 78 06/29/16 12:00 Resp 18 06/29/16 12:00 BP 129/70 06/29/16 12:00 Pulse Ox 94 L 06/29/16 04:00 Intake & Output 06/28/16 06/29/16 06/29/16 18:59 06:59 18:59 Intake Total 366.663 360 Output Total 565 0 Balance -198.337 0 360 Weight 88.9 kg 88.9 kg Intake: IV 104 LR 80 PRESSURE BAGS 24 Intake, IV Titration 22.663 Amount Insulin Regular 100 unit 22.663 In Sodium Chloride 0.9% 100 ml @ Per Protocol IV .Q0M RACHEL Rx#:[id number] Oral 240 360 Output: Chest Tube Drainage 20 Left Pleural 10 Right Pleural 10 Urine 545 0 Other: Voiding Method Indwelling Catheter Toilet Toilet # Voids 1 1 1 ABP, PAP, CO, CI - Last Documented Arterial Blood Pressure 91/45 Pulmonary Artery Pressure 17/7 Cardiac Output 8.0 Cardiac Index 3.9 - Exam PHYSICAL EXAM: VITAL SIGNS: As above GENERAL: [Sitting up in chair, no acute distress] HEENT: [Pupils equal conjunctiva normal.] NECK: [Supple, no JVD, RESPIRATORY EFFORT:[Normal] LUNGS: [Diminished, occasional fine expiratory wheeze CARDIOVASCULAR[regular S1 and S2, no murmurs rubs or gallops. Trace edema] GI: [Abdomen soft, nontender, nondistended, positive bowel sounds.] PSYCH: [Alert and oriented -3, mood and affect normal.] NEURO: No focal deficits - Labs CBC & Chem 7: 06/29/16 05:34 06/29/16 05:34 Labs: Abnormal Lab Results - Last 24 Hours (Table) 06/28/16 06/29/16 06/29/16 Range/Units 21:26 05:27 05:34 WBC 11.1 H (3.8-10.6) k/uL RBC 2.22 L (4.30-5.90) m/uL Hgb 7.4 L (13.0-17.5) gm/dL Hct 22.6 L (39.0-53.0) % MCV 101.9 H (80.0-100.0) fL Neutrophils # 9.6 H (1.3-7.7) k/uL Lymphocytes # 0.7 L (1.0-4.8) k/uL Sodium (137-145) mmol/L BUN (9-20) mg/dL Glucose (74-99) mg/dL POC Glucose (mg/dL) 153 H 164 H (75-99) mg/dL Magnesium (1.6-2.3) mg/dL 06/29/16 06/29/16 06/29/16 Range/Units 05:34 12:03 16:47 WBC (3.8-10.6) k/uL RBC (4.30-5.90) m/uL Hgb (13.0-17.5) gm/dL Hct (39.0-53.0) % MCV (80.0-100.0) fL Neutrophils # (1.3-7.7) k/uL Lymphocytes # (1.0-4.8) k/uL Sodium 136 L (137-145) mmol/L BUN 25 H (9-20) mg/dL Glucose 145 H (74-99) mg/dL POC Glucose (mg/dL) 127 H 138 H (75-99) mg/dL Magnesium 2.4 H (1.6-2.3) mg/dL Assessment and Plan Plan: 1. [Multivessel CAD, non-STEMI, status post CABG]. 2. [Chronic CHF, systolic dysfunction, with no acute exacerbation, history of Ischemic cardiomyopathy. 3. COPD with minimal exacerbation]. 4. [History of nicotine abuse]. 5. [Postoperative Atelectasis]. 6. [Postoperative anemia, to be expected]. 7. Proximal atrial fibrillation with RVR Plan: Continue on current medication regime , aspirin, Plavix, statin, beta linda, Colace, monitoring, and symptomatic treatment. Continue with Aggressive pulmonary toileting. Discharge planning in progress as per cardiothoracic surgery for today. Further recommendations to follow. The impression and plan of care has been dictated as directed. : I performed a H&P examination of this patient and discussed the same with the dictator. I agree with the dictator's note. Any additional findings/opinions/ etc. will be noted.
[2016-06-30] MEDS: HEPARIN SODIUM,PORCINE 5,000 UNIT/ML 1 ML VIAL SQ SCH ×2 (00:09→09:58)
[2016-06-30 02:19] LABS: Glucose,Whole Blood 121 mg/dL (75-99)
[2016-06-30] MEDS: HYDROcodone/APAP 5-325MG 1 EACH TAB PO PRN ×3 (03:33→10:12)
[2016-06-30 06:29] LABS: Glucose,Whole Blood 95 mg/dL (75-99)
[2016-06-30 06:33] LABS: Basophils % (A) 0 %; CH 33.6; CHCM 33.3; Eosinophils % (A) 0 %; HCT 23.1 % (39.0-53.0); HGB 7.6 gm/dL (13.0-17.5); Luc # (Auto) 0.23; Luc % (Auto) 2; Lymphocytes # (A) 1.6 k/uL (1.0-4.8); Lymphocytes % (A) 16 %; MCH 33.7 pg (25.0-35.0); MCHC 33.1 g/dL (31.0-37.0); MCV 101.8 fL (80.0-100.0); Macrocytosis Slight; Mean Platelet Volume 8.6; Monocytes # (A) 0.9 k/uL (0-1.0); Monocytes % (A) 9 %; Neutrophils # (A) 7.2 k/uL (1.3-7.7); Neutrophils % (A) 73 %; RBC 2.26 m/uL (4.30-5.90); RDW 13.9 % (11.5-15.5); WBC 9.8 k/uL (3.8-10.6); WBC (Perox) 10.27
[2016-06-30 06:44] LABS: Anion Gap 9 mmol/L; Blood Urea Nitrogen 27 mg/dL (9-20); Calcium 8.6 mg/dL (8.4-10.2); Carbon Dioxide 24 mmol/L (22-30); Chloride 104 mmol/L (98-107); Glucose 82 mg/dL (74-99); Magnesium 2.3 mg/dL (1.6-2.3); Non-African American GFR(MDRD) >60 (>60 ml/min/1.73 sqM); Phosphorous 3.3 mg/dL (2.5-4.5); Potassium 4.5 mmol/L (3.5-5.1); Sodium 137 mmol/L (137-145)
[2016-06-30] MEDS: INSULIN LISPRO (humaLOG) 300 UNIT/3 ML VIAL SQ SCH ×2 (07:05→14:30)
[2016-06-30] MEDS: ALBUTEROL NEBULIZED 2.5 MG/3 ML INHALATION SCH ×3 (08:23→16:48)
[2016-06-30] MEDS: NICOTINE 14MG/24HR PATCH TRANSDERM SCH (09:56)
[2016-06-30] MEDS: ASCORBIC ACID 500 MG TAB PO SCH (10:00)
[2016-06-30] MEDS: AMIODARONE 200 MG TAB PO SCH (10:00)
[2016-06-30] MEDS: METOPROLOL TARTRATE 12.5 MG TAB PO SCH (10:01)
[2016-06-30] MEDS: CLOPIDOGREL 75 MG TAB PO SCH (10:01)
[2016-06-30] MEDS: LISINOPRIL 2.5 MG TAB PO SCH (10:01)
[2016-06-30] MEDS: PANTOPRAZOLE 40 MG TABLET PO SCH (10:01)
[2016-06-30] MEDS: ATORVASTATIN 40 MG TAB PO SCH (10:02)
[2016-06-30] MEDS: ASPIRIN 325 MG TAB PO SCH (10:02)
[2016-06-30] MEDS: THIAMINE 100 MG/ML 2 ML VIAL IVP SCH (10:03)
[2016-06-30] MEDS: VITAMIN A 10,000 UNIT CAPSULE PO SCH (11:16)
[2016-06-30] MEDS: CHOLECALCIFEROL 1,000 UNIT TAB PO SCH (11:17)
[2016-06-30] MEDS: MULTIVITAMINS, THERA 1 EACH TAB PO SCH (11:17)
--- NOTE | 2016-06-30 11:23 | P.PN ---
Subjective Principal diagnosis: Triple-vessel coronary artery disease and left ventricular dysfunction. 65-year-old male patient, a chronic smoker with a positive family history of coronary artery disease, presented with episodes of chest pain. Further investigation revealed an abnormal EKG and following that the patient came into the hospital where he had a cardiac catheterization that showed triple-vessel disease with subtotal occluded mid LAD and severely impaired LV function with an ejection fraction of 35%. The patient is being considered for coronary artery bypass surgery. Echocardiogram was also done that showed an ejection fraction of 35-40%. There was evidence of segmental wall motion abnormalities. Aortic root was dilated at 3.8 cm in size. Clinically the patient reports to be in a good state of health. He drinks alcohol every night around few glasses of liquor. No history of any delirium tremens. Denies being an alcoholic. 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 He has a chronic congested cough. No silica sputum production. No pleurisy. No hemoptysis. He reports that he was in a good state of health and he was able to walk long distances incline couple of flights of stairs prior to this event without any major difficulties. No history of any DVT or pulmonary embolism. No swelling in lower extremities. Chest x-ray from this admission showed evidence of COPD. A bedside spirometry has not been done yet. No history of any childhood asthma. No hospitalization for any respiratory difficulties. Based on room air pulse ox is ranging between 91-93%. On 06/24/2016, the patient is stable. No significant chest pain. No shortness of breath. The patient was placed on systemic steroids. The FEV1 measurement was of a 86% of predicted. The patient is scheduled to undergo his coronary bypass surgery more afternoon. Hemodynamically stable. No other significant events otherwise. On 06/25/2016, patient is doing well, patient is being considered for CABG today. Presently no cough no wheezing no shortness of breath, and the patient is hemodynamically stable. On 06/26/2016, patient is postoperative day #1, patient had a quadruple coronary artery bypass grafting postoperative course was relatively uneventful, patient was extubated last night, and he continues to do relatively well. Patient is currently sitting up in the chair, and his pain seems to be fairly well controlled. He denies any shortness of breath no cough no wheezing. Compliant to very well with incentive spirometry. Hemoglobin is 10.3. Renal profile is normal. On 06/27/2016 patient is postoperative day #2, had a quadruple coronary artery bypass grafting continues to do relatively well. On examination today, patient was noted to have diffuse rhonchi and wheezes. Hence I recommended starting him back on Solu-Medrol. We will address the Solu-Medrol on a daily basis, and in the meantime we'll continue his updrafts. I have placed him on Xopenex. Since the patient had episodes of tachycardia earlier today. CBC showed hemoglobin of 8.0 WBC count of 6.3 rest of the labs are unremarkable. Reevaluated today on 06/28/2016, postoperative day #3, continues to do well, has some cough and wheezing, remains on bronchodilators. The patient is seen again today 06/29/2016 out on the selective care unit. This is postoperative day #4. He is awake and alert in no acute distress. He denies any worsening shortness of breath, cough or congestion. He is doing excellent with his incentive spirometer and cough and deep breathing exercises. No significant wheezing noted. Today's chest x-ray is stable. His chest tubes have been removed. There is no evidence of pneumothorax or infiltrate. His hemoglobin is trending down currently at 7.4. No dizziness or lightheadedness. Reevaluated today on 06/30/2016, his postoperative day #5, patient is doing well, active, in no distress, no cough no wheezing no shortness of breath, consider for discharge today. Objective - Vital Signs Vital signs: Vital Signs Temp 97.7 F 06/30/16 08:00 Pulse 80 06/30/16 08:40 Resp 16 06/30/16 08:00 BP 113/63 06/30/16 08:00 Pulse Ox 97 06/30/16 08:00 Intake & Output 06/29/16 06/30/16 06/30/16 18:59 06:59 18:59 Intake Total 600 500 340 Output Total 650 Balance 600 -150 340 Weight 88.9 kg 88.3 kg Intake: IV 20 Invasive Line 8 10 Invasive Line 9 10 Oral 600 500 320 Output: Urine 650 Other: Voiding Method Toilet Toilet # Voids 1 1 # Bowel Movements 1 ABP, PAP, CO, CI - Last Documented Arterial Blood Pressure 91/45 Pulmonary Artery Pressure 17/7 Cardiac Output 8.0 Cardiac Index 3.9 - Exam Physical Exam: Revealed a 65-year-old in no distress. On nasal cannula, off mechanical ventilation. HEENT:[Neck is supple.] [No neck masses.] [No thyromegaly.] [No JVD.] Chest: [Clear bilaterally no crackles or rhonchi or wheezes] Cardiac Exam: [Normal S1 and S2, no S3 gallop, no murmur.] Abdomen: [Soft, nontender, no megaly, no rebound, no guarding, normal bowel sounds.] Extremities: [No clubbing, no edema, no cyanosis.] Neurological Exam: [No focal neurologic deficit.] - Labs CBC & Chem 7: 06/30/16 06:08 06/30/16 06:08 Labs: Abnormal Lab Results - Last 24 Hours (Table) 06/29/16 06/29/16 06/29/16 Range/Units 12:03 16:47 20:52 RBC (4.30-5.90) m/uL Hgb (13.0-17.5) gm/dL Hct (39.0-53.0) % MCV (80.0-100.0) fL BUN (9-20) mg/dL POC Glucose (mg/dL) 127 H 138 H 146 H (75-99) mg/dL 06/30/16 06/30/16 06/30/16 Range/Units 02:17 06:08 06:08 RBC 2.26 L (4.30-5.90) m/uL Hgb 7.6 L (13.0-17.5) gm/dL Hct 23.1 L (39.0-53.0) % MCV 101.8 H (80.0-100.0) fL BUN 27 H (9-20) mg/dL POC Glucose (mg/dL) 121 H (75-99) mg/dL Assessment and Plan Plan: Status post CABG, postoperative day # 5 Acute presentation of myocardial infarction initially, Acute left ventricular dysfunction and ischemic cardiomyopathy History of underlying COPD severity of which is [id number]. History of tobacco dependence syndrome. Postoperative atelectasis Recommendation: Agree with discharge planning today, continue incentive spirometry at home, continue bronchodilators, reevaluate in the office in one week. Time with Patient: Less than 30
[2016-06-30 12:02] LABS: Glucose,Whole Blood 90 mg/dL (75-99)
--- NOTE | 2016-06-30 12:19 | P.PN ---
Progress Note - Text CV Surgery Nursing POD: #5, quadruple coronary artery bypass graft using the left internal mammary artery to left anterior descending artery left radial artery from the aorta sequentially to the first obtuse marginal and to the second obtuse marginal and reverse saphenous vein graft to the posterior descending artery, endoscopic harvesting of the left greater saphenous vein, endoscopic harvesting of the left radial artery, intraoperative transesophageal echocardiogram and epi- aortic ultrasonography. Patient awake and alert, sitting in chair, no distress noted, no specific complaints. 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 Worker ] Pulse Rate [ 73 61 61 Pulse Oximetery ] Respiratory 16 16 16 Rate Blood Pressure 107/61 96/59 103/67 [Left Arm] O2 Sat by Pulse 95 94 L 93 L Oximetry 06/30/16 06/30/16 06/30/16 08:00 08:26 08:40 Temperature 97.7 F Pulse Rate 76 80 Pulse Rate [ Farm Worker ] Pulse Rate [ 67 Pulse Oximetery ] Respiratory 16 Rate Blood Pressure 113/63 [Left Arm] O2 Sat by Pulse 97 Oximetry 06/30/16 06/30/16 11:55 12:07 Temperature Pulse Rate 72 76 Pulse Rate [ Farm Worker ] Pulse Rate [ Pulse Oximetery ] Respiratory Rate Blood Pressure [Left Arm] O2 Sat by Pulse Oximetry Labs: Short CBC 06/30/16 Range/Units 06:08 WBC 9.8 (3.8-10.6) k/uL Hgb 7.6 L (13.0-17.5) gm/dL Hct 23.1 L (39.0-53.0) % Plt Count 256 (150-450) k/uL Neutrophils # 7.2 (1.3-7.7) k/uL BMP 06/30/16 06:08 Sodium 137 Potassium 4.5 Chloride 104 Carbon Dioxide 24 BUN 27 H Creatinine 0.80 Glucose 82 Calcium 8.6 Lungs: Respirations are even and nonlabored, lungs clear to auscultation. O2 sat: 95% on room air I/S: 2750 mL, patient gave return demonstration of proper use of the incentive spirometer Heart: S1S2, regular rate and rhythm, portable telemetry shows a normal sinus rhythm without ectopy Sternum stable, chest incision clean with silverlon dressing clean and dry. Slight edema to the left lower leg Abdomen: Soft, Positive bowel sounds present in all 4 quadrants. CBGs: 95-146 mg/dL U/O: Adequate Intake & Output 06/28/16 06/29/16 06/30/16 07/01/16 06:59 06:59 06:59 06:59 Intake Total 1842.050 675.996 5683 340 Output Total 1542 565 650 Balance 300.050 -198.337 450 340 Weight 89.5 kg 88.9 kg 88.3 kg Active Medications Hydrocodone Bitart/Acetaminophen ([place] 5-325) 2 each PO Q4HR PRN PRN Reason: Severe Pain Last Admin: 06/30/16 05:15 Dose: 1 each Hydrocodone Bitart/Acetaminophen ([place] 5-325) 1 each PO Q4HR PRN PRN Reason: Moderate Pain Last Admin: 06/30/16 10:12 Dose: 1 each Albuterol Sulfate (Ventolin Nebulized) 2.5 mg INHALATION RT-QID [facility] Last Admin: 06/30/16 11:54 Dose: 2.5 mg Albuterol/Ipratropium (Duoneb 0.5 Mg-3 Mg/3 Ml Soln) 3 ml INHALATION RT-Q2H PRN PRN Reason: Shortness Of Breath Or Wheezing Amiodarone HCl (Cordarone) 400 mg PO BID [facility] Last Admin: 06/30/16 10:00 Dose: 400 mg Amlodipine Besylate (Norvasc) 2.5 mg PO 1600 [facility] Last Admin: 06/29/16 16:59 Dose: 2.5 mg Ascorbic Acid (Vitamin C) 500 mg PO BID [facility] Last Admin: 06/30/16 10:00 Dose: 500 mg Aspirin (Aspirin) 325 mg PO DAILY [facility] Last Admin: 06/30/16 10:02 Dose: 325 mg Atorvastatin Calcium (Lipitor) 40 mg PO DAILY [facility] Last Admin: 06/30/16 10:02 Dose: 40 mg Bisacodyl (Dulcolax) 10 mg RECTAL DAILY PRN PRN Reason: Constipation Cholecalciferol (Vitamin D3) 1,000 unit PO DAILY@1200 [facility] Last Admin: 06/30/16 11:17 Dose: 1,000 unit Clopidogrel Bisulfate (Plavix) 75 mg PO DAILY [facility] Last Admin: 06/30/16 10:01 Dose: 75 mg Docusate Sodium (Colace) 100 mg PO DAILY PRN PRN Reason: Constipation Last Admin: 06/26/16 15:48 Dose: 100 mg Heparin Sodium (Porcine) (Heparin) 5,000 unit SQ Q8HR [facility] Last Admin: 06/30/16 09:58 Dose: 5,000 unit Insulin Glargine (Lantus) 15 unit SQ HS [facility] Last Admin: 06/29/16 21:49 Dose: 15 unit Insulin Human Lispro (Humalog) 0 unit SQ ACHS [facility] PRN Reason: Protocol Last Admin: 06/30/16 07:05 Dose: Not Given Lisinopril (Zestril) 2.5 mg PO DAILY [facility] Last Admin: 06/30/16 10:01 Dose: 2.5 mg Magnesium Hydroxide (Milk Of Magnesia) 2,400 mg PO BID PRN PRN Reason: Constipation Last Admin: 06/28/16 13:09 Dose: 2,400 mg Metoprolol Tartrate (Lopressor) 12.5 mg PO BID [facility] Last Admin: 06/30/16 10:01 Dose: 12.5 mg Miscellaneous Information (Magnesium Per Protocol) 1 each MISCELLANE DAILY PRN ; Protocol PRN Reason: Per Protocol Miscellaneous Information (Potassium Per Protocol) 1 each MISCELLANE DAILY PRN ; Protocol PRN Reason: Per Protocol Multivitamins (Theragran) 1 each PO DAILY@1200 [facility] Last Admin: 06/30/16 11:17 Dose: 1 each Nicotine (Habitrol 14mg/24hr Patch) 1 patch TRANSDERM DAILY [facility] Last Admin: 06/30/16 09:56 Dose: 1 patch Ondansetron HCl (Zofran) 4 mg IVP Q6HR PRN PRN Reason: Nausea And Vomiting Pantoprazole Sodium (Protonix) 40 mg PO DAILY [facility] Last Admin: 06/30/16 10:01 Dose: 40 mg Senna/Docusate Sodium (Senokot-S) 2 each PO HS [facility] Last Admin: 06/29/16 22:02 Dose: 2 each Sodium Chloride (Saline Flush) 10 ml IV BID [facility] Last Admin: 06/30/16 10:02 Dose: 10 ml Thiamine HCl (Vitamin B-1) 100 mg IVP DAILY [facility] Last Admin: 06/30/16 10:03 Dose: 100 mg Vitamin A (Vitamin A) 50,000 unit PO DAILY [facility] Last Admin: 06/30/16 11:16 Dose: 50,000 unit Plan: Status post CABG day #5 Good progress Continue to increase activity Continue aggressive pulmonary toilet Discharge home Instructions given
--- NOTE | 2016-06-30 13:08 | P.PN ---
Subjective Principal diagnosis: CABG This is a 65-year-old gentleman who presented to the hospital with a myocardial infarction. Cardiac catheterization revealed triple vessel coronary artery disease and patient underwent coronary artery bypass grafting surgery. He was seen and examined this morning, doing well overall. Denies any chest pain, breathing is stable. Remaining in normal sinus rhythm. No further episodes of atrial fibrillation have been noted. Reaching up to 3000 on his incentive spirometry. Hemoglobin 7.6 today. Objective - Vital Signs Vital signs: Vital Signs Temp 97.7 F 06/30/16 08:00 Pulse 76 06/30/16 12:07 Resp 16 06/30/16 08:00 BP 113/63 06/30/16 08:00 Pulse Ox 97 06/30/16 08:00 Intake & Output 06/29/16 06/30/16 06/30/16 18:59 06:59 18:59 Intake Total 600 500 340 Output Total 650 Balance 600 -150 340 Weight 88.9 kg 88.3 kg Intake: IV 20 Invasive Line 8 10 Invasive Line 9 10 Oral 600 500 320 Output: Urine 650 Other: Voiding Method Toilet Toilet # Voids 1 1 # Bowel Movements 1 ABP, PAP, CO, CI - Last Documented Arterial Blood Pressure 91/45 Pulmonary Artery Pressure 17/7 Cardiac Output 8.0 Cardiac Index 3.9 - Exam PHYSICAL EXAMINATION: HEENT: Head is atraumatic, normocephalic. Pupils equal, round. Neck is supple. There is no elevated jugular venous pressure. HEART EXAMINATION: Heart S1, S2 normal. No murmur or gallop heard. CHEST EXAMINATION: Lungs are clear to auscultation and precussion. No chest wall tenderness is noted on palpation or with deep breathing. ABDOMEN: Soft, nontender. Bowel sounds are heard. No organomegaly noted. EXTREMITIES: 2+ peripheral pulses with trace evidence of peripheral edema and no calf tenderness noted. NEUROLOGIC patient is awake, alert and oriented -3. . - Labs CBC & Chem 7: 06/30/16 06:08 06/30/16 06:08 Labs: Abnormal Lab Results - Last 24 Hours (Table) 06/29/16 06/29/16 06/30/16 Range/Units 16:47 20:52 02:17 RBC (4.30-5.90) m/uL Hgb (13.0-17.5) gm/dL Hct (39.0-53.0) % MCV (80.0-100.0) fL BUN (9-20) mg/dL POC Glucose (mg/dL) 138 H 146 H 121 H (75-99) mg/dL 06/30/16 06/30/16 Range/Units 06:08 06:08 RBC 2.26 L (4.30-5.90) m/uL Hgb 7.6 L (13.0-17.5) gm/dL Hct 23.1 L (39.0-53.0) % MCV 101.8 H (80.0-100.0) fL BUN 27 H (9-20) mg/dL POC Glucose (mg/dL) (75-99) mg/dL Assessment and Plan (1) S/P CABG (coronary artery bypass graft) Status: Acute (2) Paroxysmal a-fib Status: Acute (3) Hx of nicotine dependence Status: Acute (4) Ischemic cardiomyopathy Status: Acute Plan: Cardiology's perspective, we'll continue patient on his current medications. He 's doing very well overall. Once he is discharged home from the hospital, a follow-up appointment will be made with Dr. Carbajal in the office post discharge. DNP note has been reviewed, I agree with a documented findings and plan of care. Patient was seen and examined.
[2016-06-30 15:24] VITALS: BP 115/63; PULSE 67; TEMP 97.6
== END 2016-06-30 17:24 | disposition home or self-care (01) | DRG 234 ==
LOC: EC 11:20 → 6SEL 13:31 → 6ICU 16:32 → 6SEL 06-28 23:03
PROVIDERS: ADMIT Internal Medicine; ATTEND Surgery
PROC: 4A023N7 Measurement of Cardiac Sampling and Pressure, Left Heart, Percutaneous Approach (ICD-10-PCS; principal; 2016-06-22 15:35)
PROC: B2111ZZ Fluoroscopy of Multiple Coronary Arteries using Low Osmolar Contrast (ICD-10-PCS; principal; 2016-06-22 15:35)
PROC: B2151ZZ Fluoroscopy of Left Heart using Low Osmolar Contrast (ICD-10-PCS; principal; 2016-06-22 15:35)
PROC: 06BQ4ZZ Excision of Left Saphenous Vein, Percutaneous Endoscopic Approach (ICD-10-PCS; 2016-06-25)
PROC: 021009W Bypass Coronary Artery, One Artery from Aorta with Autologous Venous Tissue, Open Approach (ICD-10-PCS; 2016-06-25)
PROC: 02100Z9 Bypass Coronary Artery, One Artery from Left Internal Mammary, Open Approach (ICD-10-PCS; 2016-06-25)
PROC: 5A1221Z Performance of Cardiac Output, Continuous (ICD-10-PCS; 2016-06-25)
PROC: B246ZZ4 Ultrasonography of Right and Left Heart, Transesophageal (ICD-10-PCS; 2016-06-25)
PROC: 03BC4ZZ Excision of Left Radial Artery, Percutaneous Endoscopic Approach (ICD-10-PCS; 2016-06-25)
PROC: 02110AW Bypass Coronary Artery, Two Arteries from Aorta with Autologous Arterial Tissue, Open Approach (ICD-10-PCS; 2016-06-25)
DX: I21.4 Non-ST elevation (NSTEMI) myocardial infarction (principal); I50.9 Heart failure, unspecified; J44.9 Chronic obstructive pulmonary disease, unspecified; J98.11 Atelectasis; I08.1 Rheumatic disorders of both mitral and tricuspid valves; E78.5 Hyperlipidemia, unspecified; F10.20 Alcohol dependence, uncomplicated; I25.10 Atherosclerotic heart disease of native coronary artery without angina pectoris; I25.5 Ischemic cardiomyopathy; I48.0 Paroxysmal atrial fibrillation; K59.00 Constipation, unspecified; Z79.02 Long term (current) use of antithrombotics/antiplatelets; Z79.82 Long term (current) use of aspirin; Z82.49 Family history of ischemic heart disease and other diseases of the circulatory system; Z72.0 Tobacco use
CPT/HCPCS: 36415; 36620; 71010; 71020; 80048; 80053; 80061; 80074; 81003; 82330; 82550; 82553; 82805; 83036; 83735; 83880; 84100; 84443; 84484; 85025; 85379; 85520; 85610; 85730; 86850; 86891; 86900; 86901; 86920; 87086; 93005; 93306; 93458; 93880; 93923; 93970; 94002; 94003; 94150; 94640; 94760; 96361; 96376; 99285

== ENCOUNTER 2017-03-26 07:13 | Emergency (ER) | payer BC ==
[2017-03-26] MEDS ORDERED: RX INFO: IV CONTRAST WAS GIVEN 1 EACH MISC MISCELLANE PRN (07:37)
--- NOTE | 2017-03-26 07:41 | ED ---
General Adult HPI - General Chief complaint: Abdominal Pain Stated complaint: Poss Hernia Time Seen by Provider: 03/26/17 07:29 Source: patient, RN notes reviewed, old records reviewed Mode of arrival: ambulatory Limitations: no limitations - History of Present Illness Initial comments: 66-year-old male presents with pain and swelling in his right groin. Patient believes he has a hernia. He states that this has been there for several months. He states about one week ago hernia increased in size. With rest patient was able to reduce this hernia. He subsequently developed some bilateral lower quadrant abdominal pain. He also reports daily bowel movements with thin caliber. Denies nausea vomiting. Denies fever or chills. Denies chest pain or shortness of breath. - Related Data Home Medications Medication Instructions Recorded Confirmed Cholecalciferol [Vitamin D3] 1,000 unit PO DAILY 06/22/16 03/26/17 Multivitamins, Thera [Multivitamin 1 tab PO DAILY 06/22/16 03/26/17 (formulary)] Vitamin B Complex 1 cap PO DAILY 06/22/16 03/26/17 Aspirin 325 mg PO DAILY 03/26/17 03/26/17 Atorvastatin [Lipitor] 40 mg PO HS@199903/26/17 03/26/17 Metoprolol Tartrate [Lopressor] 25 mg PO BID 03/26/17 03/26/17 Previous Rx's Medication Instructions Recorded Clopidogrel [Plavix] 75 mg PO DAILY #30 tab 06/30/16 Lisinopril [Zestril] 2.5 mg PO DAILY #30 tab 06/30/16 Allergies Allergy/AdvReac Type Severity Reaction Status Date / Time No Known Allergies Allergy Verified 03/26/17 07:54 Review of Systems ROS Statement: Those systems with pertinent positive or pertinent negative responses have been documented in the HPI. ROS Other: All systems not noted in ROS Statement are negative. Past Medical History Past Medical History: Chest Pain / Angina, Hyperlipidemia, Hypertension Additional Past Medical History / Comment(s): Occasional lower back pain, History of Any Multi-Drug Resistant Organisms: None Reported Past Surgical History: Appendectomy Additional Past Surgical History / Comment(s): 2011 colonoscopy with polypectomy -benign, CABG, Vasectomy Past Anesthesia/Blood Transfusion Reactions: No Reported Reaction Past Psychological History: Anxiety, Depression Smoking Status: Current every day smoker Past Alcohol Use History: Daily Past Drug Use History: None Reported - Past Family History Mother Family Medical History: No Reported History Additional Family Medical History / Comment(s): Mother lived to be 88yrs old. Father History Unknown: Yes Family Medical History: Cancer Additional Family Medical History / Comment(s): Father had sarcoma and at the age of 65yrs. General Exam Limitations: no limitations General appearance: alert, in no apparent distress Head exam: Present: atraumatic, normocephalic Eye exam: Present: normal appearance, PERRL ENT exam: Present: normal exam Neck exam: Present: normal inspection. Absent: tenderness, meningismus Respiratory exam: Present: normal lung sounds bilaterally. Absent: respiratory distress, wheezes Cardiovascular Exam: Present: regular rate, normal rhythm GI/Abdominal exam: Present: soft, tenderness (Mild right lower quadrant tenderness), hernia (Right inguinal hernia, nonreducible). Absent: distended, guarding, rebound Extremities exam: Present: normal inspection, full ROM, normal capillary refill. Absent: pedal edema Neurological exam: Present: alert, oriented X3, CN II-XII intact. Absent: motor sensory deficit Psychiatric exam: Present: normal affect, normal mood Skin exam: Present: warm, dry, intact. Absent: cyanosis, diaphoretic Course Vital Signs 03/26/17 07:22 Temperature 97.9 F Pulse Rate 77 Respiratory 18 Rate Blood Pressure 155/88 O2 Sat by Pulse 96 Oximetry Medical Decision Making - Medical Decision Making 66-year-old male with concern for right inguinal hernia. Patient does have a palpable hernia on examination, nonreducible. Laboratory studies are obtained, normal white blood cell count, stable hemoglobin, lactic acid is 0.9 which is normal no signs of ischemia on laboratory studies. Urinalysis is clear. CT abdomen and pelvis with IV contrast is obtained, they're does show some mild enteritis, no bowel obstruction, right inguinal hernia containing fat only, normal bowel at this time. Given the history I do feel there is intermittent reducible inguinal hernia with bowel, however not currently. Patient will begin a stool bulking agent, will stay hydrated. He will follow-up with general surgery for evaluation of hernia. He will return the emergency Department with worsening pain, worsening swelling, change in bowels or development of nausea vomiting. - Lab Data Result diagrams: 03/26/17 07:50 03/26/17 07:50 Lab Results 03/26/17 03/26/17 03/26/17 Range/Units 07:50 07:50 07:50 WBC 4.8 (3.8-10.6) k/uL RBC 4.43 (4.30-5.90) m/uL Hgb 14.6 (13.0-17.5) gm/dL Hct 44.0 (39.0-53.0) % MCV 99.2 (80.0-100.0) fL MCH 33.0 (25.0-35.0) pg MCHC 33.3 (31.0-37.0) g/dL RDW 14.2 (11.5-15.5) % Plt Count 283 (150-450) k/uL Neutrophils % 53 % Lymphocytes % 28 % Monocytes % 11 % Eosinophils % 2 % Basophils % 1 % Neutrophils # 2.5 (1.3-7.7) k/uL Lymphocytes # 1.4 (1.0-4.8) k/uL Monocytes # 0.5 (0-1.0) k/uL Eosinophils # 0.1 (0-0.7) k/uL Basophils # 0.1 (0-0.2) k/uL Sodium 138 (137-145) mmol/L Potassium 4.1 (3.5-5.1) mmol/L Chloride 106 (98-107) mmol/L Carbon Dioxide 24 (22-30) mmol/L Anion Gap 8 mmol/L BUN 11 (9-20) mg/dL Creatinine 0.68 (0.66-1.25) mg/dL Est GFR (MDRD) Af Amer >60 (>60 ml/min/1.73 sqM) Est GFR (MDRD) Non-Af >60 (>60 ml/min/1.73 sqM) Glucose 108 H (74-99) mg/dL Plasma Lactic Acid Erick 0.9 (0.7-2.0) mmol/L Calcium 9.3 (8.4-10.2) mg/dL Total Bilirubin 0.5 (0.2-1.3) mg/dL AST 21 (17-59) U/L ALT 27 (21-72) U/L Alkaline Phosphatase 51 (38-126) U/L Total Protein 7.0 (6.3-8.2) g/dL Albumin 4.0 (3.5-5.0) g/dL Amylase 37 (30-110) U/L Lipase 102 (23-300) U/L Urine Color Urine Appearance (Clear) Urine pH (5.0-8.0) Ur Specific [place] (1.001-1.035) Urine Protein (Negative) Urine Glucose (UA) (Negative) Urine Ketones (Negative) Urine Blood (Negative) Urine Nitrite (Negative) Urine Bilirubin (Negative) Urine Urobilinogen (<2.0) mg/dL Ur Leukocyte Esterase (Negative) 03/26/17 Range/Units 07:50 WBC (3.8-10.6) k/uL RBC (4.30-5.90) m/uL Hgb (13.0-17.5) gm/dL Hct (39.0-53.0) % MCV (80.0-100.0) fL MCH (25.0-35.0) pg MCHC (31.0-37.0) g/dL RDW (11.5-15.5) % Plt Count (150-450) k/uL Neutrophils % % Lymphocytes % % Monocytes % % Eosinophils % % Basophils % % Neutrophils # (1.3-7.7) k/uL Lymphocytes # (1.0-4.8) k/uL Monocytes # (0-1.0) k/uL Eosinophils # (0-0.7) k/uL Basophils # (0-0.2) k/uL Sodium (137-145) mmol/L Potassium (3.5-5.1) mmol/L Chloride (98-107) mmol/L Carbon Dioxide (22-30) mmol/L Anion Gap mmol/L BUN (9-20) mg/dL Creatinine (0.66-1.25) mg/dL Est GFR (MDRD) Af Amer (>60 ml/min/1.73 sqM) Est GFR (MDRD) Non-Af (>60 ml/min/1.73 sqM) Glucose (74-99) mg/dL Plasma Lactic Acid Erick (0.7-2.0) mmol/L Calcium (8.4-10.2) mg/dL Total Bilirubin (0.2-1.3) mg/dL AST (17-59) U/L ALT (21-72) U/L Alkaline Phosphatase (38-126) U/L Total Protein (6.3-8.2) g/dL Albumin (3.5-5.0) g/dL Amylase (30-110) U/L Lipase (23-300) U/L Urine Color Light Yellow Urine Appearance Clear (Clear) Urine pH 7.0 (5.0-8.0) Ur Specific [place] 1.004 (1.001-1.035) Urine Protein Negative (Negative) Urine Glucose (UA) Negative (Negative) Urine Ketones Negative (Negative) Urine Blood Negative (Negative) Urine Nitrite Negative (Negative) Urine Bilirubin Negative (Negative) Urine Urobilinogen <2.0 (<2.0) mg/dL Ur Leukocyte Esterase Negative (Negative) Disposition Clinical Impression: Inguinal hernia Disposition: HOME SELF-CARE Condition: Good Instructions: Inguinal Hernia (ED) Referrals: Ayush Mauro DO [Primary Care Provider] - 1-2 days Tran Fernandez DO [Doctor of Osteopathic Medicine] - 1-2 days Time of Disposition: 08:57
[2017-03-26 08:03] LABS: Appearance,Urine Clear (Clear); Bilirubin,Urine Negative (Negative); Glucose,Urine (UA) Negative (Negative); Ketones,Urine Negative (Negative); Leukocyte Esterase,Urine Negative (Negative); Nitrite,Urine Negative (Negative); Protein,Urine Negative (Negative); Specific Gravity,Urine 1.004 (1.001-1.035); UA Billing (MACRO vs. MICRO) CHEM; Urobilinogen,Urine <2.0 mg/dL (<2.0)
[2017-03-26 08:14] LABS: ALT 27 U/L (21-72); AST 21 U/L (17-59); Alkaline Phosphatase 51 U/L (38-126); Amylase 37 U/L (30-110); Anion Gap 8 mmol/L; Blood Urea Nitrogen 11 mg/dL (9-20); Calcium 9.3 mg/dL (8.4-10.2); Carbon Dioxide 24 mmol/L (22-30); Chloride 106 mmol/L (98-107); Glucose 108 mg/dL (74-99); Non-African American GFR(MDRD) >60 (>60 ml/min/1.73 sqM); Potassium 4.1 mmol/L (3.5-5.1); Sodium 138 mmol/L (137-145); Total Bilirubin 0.5 mg/dL (0.2-1.3)
[2017-03-26 08:17] LABS: Basophils # (A) 0.1 k/uL (0-0.2); Basophils % (A) 1 %; CH 32.6; Eosinophils # (A) 0.1 k/uL (0-0.7); Eosinophils % (A) 2 %; HDW 2.25; HGB 14.6 gm/dL (13.0-17.5); Luc # (Auto) 0.19; Luc % (Auto) 4; Lymphocytes # (A) 1.4 k/uL (1.0-4.8); Lymphocytes % (A) 28 %; MCHC 33.3 g/dL (31.0-37.0); MCV 99.2 fL (80.0-100.0); Mean Platelet Volume 7.2; Monocytes # (A) 0.5 k/uL (0-1.0); Monocytes % (A) 11 %; Neutrophils # (A) 2.5 k/uL (1.3-7.7); Neutrophils % (A) 53 %; RBC 4.43 m/uL (4.30-5.90); RDW 14.2 % (11.5-15.5); WBC 4.8 k/uL (3.8-10.6); WBC (Perox) 4.71
--- NOTE | 2017-03-26 08:44 | CT ---
EXAMINATION TYPE: CT abdomen pelvis w con DATE OF EXAM: 03/26/2017 COMPARISON: 08/20/2014 HISTORY: 66-year-old male with abdominal pain , possible right inguinal hernia TECHNIQUE: Contiguous axial scanning of the abdomen and pelvis following administration of 100 ml Omn ipaque 300 IV contrast. Delayed images through the kidneys and coronal/sagittal reconstructions perf ormed. CT DLP: 584.4 mGycm Automated exposure control for dose reduction was used. FINDINGS: The heart is normal size without pericardial effusion. Some strandy atelectasis in the visualized low er lungs. No pleural effusion. Tiny hernia. A few subcentimeter hypodensities left hepatic lobe were present in 2014 suggesting tiny cysts. Some focal fat along the anterior falciform ligament. Portal venous system appears patent. No biliary ductal dilatation. Gallbladder, adrenal glands, right kidney, spleen, and pancreas appear within normal limits. Stable 1 cm hypodensity anterior upper pole left kidney likely cyst. Some prominent fluid filled duodenal and jejunal loops and also some prominent fluid filled loops in the lower abdomen. Marked sigmoid diverticulosis. No definite pericolonic inflammatory changes seen there is mild overal l stone burden. Appendix cannot be discretely visualized. Fusiform ectasia infrarenal abdominal aorta at 2.8 cm versus 2.7 cm, previously. No mesenteric or retroperitoneal lymphadenopathy seen. Bladder urine distended. Prostate gland mildly enlarged at 4.7 cm wide with some central calcificatio ns. Pelvic phleboliths. No abnormal fluid collection in the pelvis or pelvic lymphadenopathy seen. Redemonstrated small fat-containing right inguinal hernia without significant change. Bones: Mild degenerative changes at the hips. Scattered degenerative changes throughout the lumbar sp ine. No osseous destructive process seen. IMPRESSION: 1. PROMINENT FLUID-FILLED PROXIMAL AND DISTAL SMALL BOWEL LOOPS AND SOME LIQUID STOOL IN THE RIGHT HE MICOLON. CORRELATE FOR POSSIBLE ENTERITIS. 2. MARKED SIGMOID DIVERTICULOSIS. NO DEFINITE ACUTE DIVERTICULITIS. 3. THE APPENDIX COULD NOT BE DISCRETELY VISUALIZED. 4. STABLE SMALL FAT-CONTAINING RIGHT INGUINAL HERNIA. 5. RELATIVELY SIMILAR FUSIFORM ECTASIA INFRARENAL ABDOMINAL AORTA (2.8 CM VERSUS 2.7 CM IN 2015).
[2017-03-26 09:10] VITALS: BP 138/78; PULSE 68; RESP 16; TEMP 97.5
== END 2017-03-26 09:10 | disposition home or self-care (01) ==
LOC: EC 07:13
DX: K40.90 Unilateral inguinal hernia, without obstruction or gangrene, not specified as recurrent (principal); K52.9 Noninfective gastroenteritis and colitis, unspecified; E78.5 Hyperlipidemia, unspecified; I20.9 Angina pectoris, unspecified; I10 Essential (primary) hypertension; F17.200 Nicotine dependence, unspecified, uncomplicated; Z95.1 Presence of aortocoronary bypass graft; Z90.49 Acquired absence of other specified parts of digestive tract; Z79.82 Long term (current) use of aspirin; Z79.899 Other long term (current) drug therapy
CPT/HCPCS: 36415; 80053; 82150; 83605; 83690; 85025; 81003; 74177; 99284; Q9967

== ENCOUNTER → 2017-07-04 | Outpatient (CLI) | payer BC ==
--- NOTE | 2017-07-04 10:48 | XR ---
Cervical spine HISTORY: Neck pain, radiculopathy 5 views of the cervical spine correlated to prior exam 02/25/2015 or graph carotid artery calcificati ons are noted incidentally, patient is post median sternotomy. Multilevel facet arthropathy changes present. Foraminal encroachment is suspected at C3-4, C5-6 and C 6-7 bilaterally, right-sided C4-5 and possibly C2-3. There is multilevel spondylosis. Cervical verteb ral bodies show preserved height, stable bone mineralization. Retrolisthesis grade 1 C4-5 and C5-6 is stable. Multilevel loss of disc height is present with associated spondylosis. IMPRESSION: Stable degenerative disc disease, foraminal encroachment, facet arthropathy. Cervical MRI may be of benefit.
== END | disposition home or self-care (01) ==
LOC: RADXRYALE 09:53
PROVIDERS: ATTEND Physician Assistant Medical
DX: M50.10 Cervical disc disorder with radiculopathy, unspecified cervical region (principal); M46.82 Other specified inflammatory spondylopathies, cervical region
CPT/HCPCS: 72050

== ENCOUNTER → 2018-08-08 | Outpatient (CLI) | payer MEDICARE ==
--- NOTE | 2018-08-08 15:19 | XR ---
EXAMINATION TYPE: XR chest 2V DATE OF EXAM: 08/08/2018 COMPARISON: 06/29/2016 HISTORY: Shortness of breath TECHNIQUE: Frontal and lateral views of the chest are obtained. FINDINGS: Scattered senescent parenchymal changes noted. Hyperinflation compatible with COPD. No evidence for infiltrate. No evidence for atelectasis. Heart size is stable. Mediastinal structures are stable and grossly unremarkable. No evidence for hilar prominence. Degenerative changes dorsal spine. IMPRESSION: 1. No evidence for acute pulmonary disease.
== END | disposition home or self-care (01) ==
LOC: RADXRYALE 15:00
PROVIDERS: ATTEND Internal Medicine Interventional Cardiology
DX: R06.02 Shortness of breath (principal)
CPT/HCPCS: 71046

== ENCOUNTER → 2018-08-28 | Outpatient (CLI) | payer MEDICARE ==
--- NOTE | 2018-08-28 10:25 | XR ---
EXAMINATION TYPE: XR thoracic spine complete DATE OF EXAM: 08/28/2018 CLINICAL HISTORY: Chronic back pain in the thoracic spine TECHNIQUE: Frontal, lateral, and swimmer's view of thoracic spine are obtained. COMPARISON: None. FINDINGS: Thoracic spine show satisfactory alignment without evidence of acute fracture or dislocatio n. Vertebral body heights are maintained however there is multilevel intervertebral disc space narrow ing and bridging anterior osteophytes with endplate sclerosis. This is most pronounced of the lower t horacic spine. Post CABG changes of the chest overlies the thoracic spine in the frontal view. IMPRESSION: No acute fracture or malalignment is seen in the thoracic spine. Moderate degenerative d isc disease of the thoracic spine is most severe at the lower thoracic spine.
== END | disposition home or self-care (01) ==
LOC: RADXRYALE 09:34
PROVIDERS: ATTEND Family Medicine
DX: M51.34 Other intervertebral disc degeneration, thoracic region (principal)
CPT/HCPCS: 72072

== ENCOUNTER → 2019-03-31 | Outpatient (CLI) | payer MEDICARE ==
--- NOTE | 2019-03-31 09:22 | US ---
EXAMINATION TYPE: US abdomen comp/pelvis limited DATE OF EXAM: 03/31/2019 COMPARISON: CT's 2017 CLINICAL HISTORY: R31.29 Hematuria, R10.84 Abd pain. Rt flank pain EXAM MEASUREMENTS: Liver Length: 11.4 cm Gallbladder Wall: 0.2 cm CBD: 0.7 cm Spleen: 9.2 cm Right Kidney: 13.4 x 4.9 x 6.1 cm Left Kidney: 13.9 x 6.4 x 6.2 cm Pancreas: visualized portions wnl Liver: wnl Gallbladder: No stones seen CBD: wnl Spleen: wnl Right Kidney: No hydronephrosis or masses seen Left Kidney: upper pole cyst measures 1.2 x 1.2 x 1.2 cm Upper IVC: wnl Abd Aorta: calcified, measures 2.8 cm distally Bladder: wnl Bilateral Jets Seen Yes Visualized pancreas is within normal limits. Visualized liver shows no worrisome mass or ductal dilat ation. Common bile duct upper limits of normal for patient's age. Gallbladder seen without shadowing mobile gallstones. No hydronephrosis in either kidney. Technologist marked simple appearing thin-wall ed 1.2 cm cyst upper pole left kidney which correlates with CT. There is an ectatic course to the aor ta measuring up to 2.8 cm distally. No greater than 3.0 cm AAA. No significant change from CT. Bladde r identified and is satisfactorily distended. Bilateral distal ureter jets seen. IMPRESSION: Cause of right flank pain and hematuria not identified. If symptoms of hematuria persist further investigation with repeat multiphase contrast-enhanced CT would be advised.
== END | disposition home or self-care (01) ==
LOC: RADUSWWP 06:52
PROVIDERS: ATTEND Family Medicine
DX: R10.84 Generalized abdominal pain (principal); R31.29 Other microscopic hematuria
CPT/HCPCS: 76700; 76857

== ENCOUNTER → 2019-11-18 | Outpatient (CLI) | payer MEDICARE | END | disposition home or self-care (01) | LOC: LABWHC1 08:31 | PROVIDERS: ATTEND Family Medicine | DX: Z20.828 Contact with and (suspected) exposure to other viral communicable diseases (principal) | CPT/HCPCS: U0003; C9803 ==

== ENCOUNTER → 2022-02-22 | Outpatient (CLI) | payer MEDICARE ==
--- NOTE | 2022-02-22 12:11 | XR ---
EXAMINATION TYPE: XR lumbosacral spine 5 views DATE OF EXAM: 02/22/2022 Comparison: None Clinical History: 71-year-old male [id number] LBP,DDD,LT HIP PAIN Findings: Facet arthropathy mid to lower lumbar spine. Degenerative trace grade 1 anterolisthesis L4-L5. Trace grade 1 retrolisthesis T12-L1 and L1-L2. Mild multilevel degenerative disc disease and endplate spond ylosis. Vertebral body heights are preserved. Accentuated lumbar lordosis. This limits assessment of the pars region on the oblique views. 5 lumbar type vertebral bodies. Impression: 1. Mild multilevel degenerative disc disease. 2. Hypertrophic facet arthropathy especially mid to lower lumbar spine. 3. Grade 1 spondylolisthesis T12-L1, L1-L2, and L4-L5.
--- NOTE | 2022-02-22 12:13 | XR ---
EXAMINATION TYPE: XR Hip Bilateral 2 views Complete DATE OF EXAM: 02/22/2022 COMPARISON: NONE HISTORY: 71-year-old male [id number] LBP,DDD,LT HIP PAIN FINDINGS: There is degenerative spurring bilaterally. Some degenerative labral ossification versus tiny os acet abuli superiorly on both sides. SI joints appear intact. No acute fracture, subluxation, or dislocati on. IMPRESSION: Mild bilateral hip OA. No acute osseous abnormality seen.
== END | disposition home or self-care (01) ==
LOC: RADXRYALE 08:56
PROVIDERS: ATTEND Family Medicine
DX: M51.36 Other intervertebral disc degeneration, lumbar region (principal); M47.816 Spondylosis without myelopathy or radiculopathy, lumbar region; M43.16 Spondylolisthesis, lumbar region; M16.0 Bilateral primary osteoarthritis of hip
CPT/HCPCS: 72110; 73521

== ENCOUNTER → 2024-07-09 | Outpatient (CLI) | payer MEDICARE ==
--- NOTE | 2024-07-11 19:37 | PE ---
EXAMINATION TYPE: PET CT fusion skull to thigh DATE OF EXAM: 07/09/2024 CLINICAL INDICATION:Male, 73 years old with history of R91.1 lung nodule; TECHNIQUE: Following the intravenous administration of 9.75 mCi of F-18 FDG, whole body images are performed from the skull base to the Mid thigh. Images are reviewed on the computer in the coronal, axial, and sagittal planes. Reconstructed rotating images are created on independent workstation and reviewed on the computer. A non-contrast CT is performed in conjunction with the PET scan. Glucose level 122 mg/dL CT DLP: 492 mGycm, Automated exposure control for dose reduction was used. COMPARISON: CT 06/10/2024, PET/CT None, MRI: None FINDINGS: Mediastinal SUV mean is 2.3. Hepatic parenchyma SUV mean is 2.8. SKULL BASE AND NECK: * Mildly FDG avid activity in the right neck lymph nodes measuring up to 8 mm in short axis max SUV 6.4. * Uptake at the level of vocal cords possibly physiologic versus 8.3. * Subtle uptake in left neck lymph node max SUV 3.7 CHEST, MEDIASTINUM, AND HILAR REGION: * Right lower lung posterior pulmonary nodule measuring 26 x 13 mm Max SUV 9.3 * Right pulmonary hilum lymph node which is difficult to measure max SUV 7.3 ABDOMEN AND PELVIS: No suspicious radiotracer activity. MUSCULOSKELETAL STRUCTURES: No suspicious radiotracer activity. OTHER CT: The ascending aorta is prominent at 39 mm. There is severe coronary artery atherosclerosis. Coronary artery bypass surgery changes noted with sternotomy wires. Mild interstitial prominence. He art is mildly enlarged for size. Infrarenal abdominal aortic fusiform aneurysm up to 31 mm. Scattered colonic diverticula present. IMPRESSION: 1. Right lower lobe posterior pulmonary nodule with increased metabolic activity concerning for phil gnancy with a right pulmonary hilum lymph node and right neck lymph nodes concerning for metastatic d isease. 2. Infrarenal abdominal aortic fusiform aneurysm up to 31 mm. [facility], , 07/11/2024 7:35 PM
== END | disposition home or self-care (01) ==
LOC: RADPETMAIN 08:58
PROVIDERS: ATTEND Internal Medicine
DX: I71.43 Infrarenal abdominal aortic aneurysm, without rupture (principal); R91.1 Solitary pulmonary nodule; R59.0 Localized enlarged lymph nodes
CPT/HCPCS: 78815; A9552

== ENCOUNTER → 2024-11-19 | Outpatient (CLI) | payer MEDICARE ==
[2024-11-19 10:36] LABS: African American GFR (CKD) >90 (>60 ml/min/1.73 sqM); Blood Urea Nitrogen 7 mg/dL (9-20); Non-African American GFR(CKD) >90 (>60 ml/min/1.73 sqM)
--- NOTE | 2024-11-19 23:32 | CT ---
EXAMINATION TYPE: CT chest w con DATE OF EXAM: 11/19/2024 10:57 AM COMPARISON: PET/CT 07/09/2024 CLINICAL INDICATION: Male, 74 years old with history of R91.1 LUNG NODULE, LUNG NODULE TECHNIQUE: Axial images were obtained at 5 mm thick sections. Reconstructed images are reviewed on [employer] computer in the coronal plane. Contrast used:100ML mL of Isovue 300 with IV Contrast, (none if empty) Oral contrast used: (none if empty) CT DLP: 369.1 mGycm, Automated exposure control for dose reduction was used. FINDINGS: Portion of the thyroid visualized is normal. There is a 1.1 cm density at the right apex may be scarring. This area was not hot on PET scan. There is a nodule within the posterior right mid lung measuring 2.1 x 3.3 cm. This is large compariso n. No enlarged mediastinal adenopathy. There is enlargement of the right hilar lymph node, abnormal on the PET/CT.. Ascending aorta diameter at the level of the main pulmonary artery is 4.0 cm. The main pulmonary artery diameter at the bifurcation is 2.8 cm. Mild coronary artery calcifications present. Limited CT sections are obtained through the upper abdomen. Abdomen is essentially unremarkable. IMPRESSION: 1. Enlarging posterior right lung nodule compatible with worsening pneumonia. 2. Enlargement of a right hilar lymph node. [facility], , 11/19/2024 11:29 PM
== END | disposition home or self-care (01) ==
LOC: RADCTMAIN 09:45
PROVIDERS: ATTEND Internal Medicine
DX: R91.1 Solitary pulmonary nodule (principal); R59.0 Localized enlarged lymph nodes
CPT/HCPCS: 82565; 84520; 71260; 36415; Q9967